=== PATIENT | female | born 1940 | race African-American/Black ===

== ENCOUNTER 2018-06-24 10:17 | Inpatient (IN) | payer MEDICARE, OTHER ==
[~2018-06-24] VITALS: Ht 162.6 cm; Wt 80.7 kg
[2018-06-24] VITALS (7 sets, daily range): BP systolic 141–175; BP diastolic 60–111
[~2018-06-24 10:17] MED LIST: ASPIRIN EC81 MG ORAL; ATORVASTATIN CA40 MG ORAL; HYDROCHLOROTHIA25 MG ORAL; LISINOPRIL10 MG ORAL; NORVASC10 MG ORAL; OMEPRAZOLE20 M2 ORAL; SIMVASTATIN40 MG ORAL
[2018-06-24] MEDS ORDERED: VITAMIN D250000 UNI1 ORAL (10:55)
[2018-06-24] MEDS ORDERED: CALCIUM CARBON200 M1 PO (10:55)
[2018-06-24] MEDS ORDERED: CRESTOR10 M1 ORAL (10:55)
[2018-06-24] MEDS ORDERED: BENZONATATE200 MG ORAL (10:55)
[2018-06-24] MEDS ORDERED: LOSARTAN POTAS100 MG ORAL (10:55)
[2018-06-24 11:17] LABS: BASOPHILS % (AUTO) 1.2 % (0.0-2.0); EOSINOPHILS % (AUTO) 0.5 % (0.0-3.0); HEMATOCRIT 34.2 % (37.0-47.0); HEMOGLOBIN 11.4 G/DL (12.0-16.0); MEAN CORPUSCULAR VOLUME 86 FL (80-99); MONOCYTES % (AUTO) 12.7 % (1.0-10.0); NEUTROPHILS % (AUTO) 69.5 % (45.0-75.0); PLATELET COUNT 243 K/UL (150-450); RED BLOOD COUNT 3.99 M/UL (4.20-5.40); RED CELL DISTRIBUTION WIDTH 12.1 % (11.6-14.8)
[2018-06-24 11:23] LABS: ANION GAP 8 mmol/L (5-15); BLOOD UREA NITROGEN 24 mg/dL (7-18); CALCIUM 8.1 MG/DL (8.5-10.1); CARBON DIOXIDE 24 MMOL/L (21-32); CHLORIDE 90 MMOL/L (98-107); CREATININE 1.2 MG/DL (0.55-1.30); INR 0.9 (0.9-1.1); SODIUM 122 MMOL/L (136-145)
[2018-06-24 11:27] LABS: ALANINE AMINOTRANSFERASE 26 U/L (12-78); ALBUMIN 3.4 G/DL (3.4-5.0); ALBUMIN/GLOBULIN RATIO 0.9 (1.0-2.7); ALKALINE PHOSPHATASE 94 U/L (46-116); ASPARTATE AMINO TRANSFERASE 25 U/L (15-37); BILIRUBIN,TOTAL 0.2 MG/DL (0.2-1.0)
--- NOTE | 2018-06-24 11:43 | Diagnostic Imaging Report ---
Indications: Dizziness, nausea, vomiting Technique: Spiral acquisitions obtained through the brain. Angled axial and coronal 5 x 5 mm slices were reconstructed. Total dose length product 1277.56 mGycm. CTDI vol(s) 70.38 mGy. Dose reduction achieved using automated exposure control Comparison: 12/10/2015 Findings: There is minimal age-related enlargement of the ventricles and extra axial CSF spaces. Minimal periventricular deep white matter low-attenuation is noted. No acute intracranial hemorrhage nor edema. No mass effect nor midline shift. Empty sella again noted. Normal platt-white differentiation. Intact calvarium. Visualized orbits and sinuses are unremarkable. The mastoids are clear. No significant interim change Impression: Mild age-related changes. Negative for acute intracranial bleed or mass effect The CT scanner at [facility] is accredited by the [employer] and the scans are performed using protocols designed to limit radiation exposure to as low as reasonably achievable to attain images of sufficient resolution adequate for diagnostic evaluation.
[2018-06-24 12:46] LABS: APPEARANCE,URINE CLEAR; BILIRUBIN, URINE NEGATIVE (NEGATIVE); COLOR,URINE PALE YELLOW; GLUCOSE, URINE (UA) NEGATIVE (NEGATIVE); KETONES,URINE NEGATIVE (NEGATIVE); LEUKOCYTE ESTERASE ,URINE NEGATIVE (NEGATIVE); NITRITE,URINE NEGATIVE (NEGATIVE); PH,URINE 6 (4.5-8.0); PROTEIN,URINE NEGATIVE (NEGATIVE); UROBILINOGEN,URINE NORMAL MG/DL (0.0-1.0)
--- NOTE | 2018-06-24 14:47 | Emergency Room Report ---
History of Present Illness General Chief Complaint: Dizziness Source: Patient, Medical Record Present Illness HPI The patient is brought in accompanied by her family. She reports recurrent nausea, vomiting and diarrhea that started this morning. She is been unable to tolerate anything orally. She states she also feels generalized weakness. She denies cough or congestion. She denies abdominal pain. She denies headache or neck pain. She denies trauma. She denies dysuria or hematuria. She has no other complaints. Allergies: Coded Allergies: PENICILLINS (Verified Allergy, Unknown, 06/24/18) Patient History Past Medical History: see triage record, HTN, other - HLP Social History: Denies: smoking, alcohol use, drug use Now: No Reviewed Nursing Documentation: PMH: Agreed; PSxH: Agreed Nursing Documentation-PMH Hx Cardiac Problems: Yes - high cholesterol,arthritis Hx Hypertension: Yes Hx Gastrointestinal Problems: No Hx Neurological Problems: No Review of Systems All Other Systems: negative except mentioned in HPI Physical Exam Vital Signs Date Time Temp Pulse Resp B/P (MAP) Pulse Ox O2 Delivery O2 Flow Rate FiO2 06/24/18 10:20 97.5 92 20 147/63 99 Room Air Sp02 EP Interpretation: reviewed, normal General Appearance: no apparent distress, alert, GCS 15, non-toxic Head: normocephalic, atraumatic Eyes: bilateral eye normal inspection, bilateral eye PERRL ENT: hearing grossly normal, normal pharynx, no angioedema, normal voice Neck: full range of motion, supple/symm/no masses Respiratory: chest non-tender, lungs clear, normal breath sounds, no respiratory distress, no retraction, no accessory muscle use, speaking full sentences Cardiovascular #1: regular rate, rhythm, no edema Gastrointestinal: normal bowel sounds, non tender, soft, non-distended, no guarding, no rebound Rectal: deferred Musculoskeletal: back normal, gait/station normal, normal range of motion, non- tender Neurologic: alert, oriented x3, responsive, motor strength/tone normal, sensory intact, speech normal Psychiatric: judgement/insight normal, memory normal, mood/affect normal, no suicidal/homicidal ideation Skin: normal color, no rash, warm/dry, well hydrated Medical Decision Making Diagnostic Impression: Primary Impression: Hyponatremia Additional Impressions: Dehydration Gastroenteritis Laboratory Tests Test 06/24/18 10:53 06/24/18 12:35 White Blood Count 7.0 K/UL (4.8-10.8) Red Blood Count 3.99 M/UL (4.20-5.40) L Hemoglobin 11.4 G/DL (12.0-16.0) L Hematocrit 34.2 % (37.0-47.0) L Mean Corpuscular Volume 86 FL (80-99) Mean Corpuscular Hemoglobin 28.6 PG (27.0-31.0) Mean Corpuscular Hemoglobin Concent 33.4 G/DL (32.0-36.0) Red Cell Distribution Width 12.1 % (11.6-14.8) Platelet Count 243 K/UL (150-450) Mean Platelet Volume 6.1 FL (6.5-10.1) L Neutrophils (%) (Auto) 69.5 % (45.0-75.0) Lymphocytes (%) (Auto) 16.0 % (20.0-45.0) L Monocytes (%) (Auto) 12.7 % (1.0-10.0) H Eosinophils (%) (Auto) 0.5 % (0.0-3.0) Basophils (%) (Auto) 1.2 % (0.0-2.0) Prothrombin Time 10.0 SEC (9.30-11.50) Prothrombin Time INR 0.9 (0.9-1.1) PTT 27 SEC (23-33) Sodium Level 122 MMOL/L (136-145) L Potassium Level 5.0 MMOL/L (3.5-5.1) Chloride Level 90 MMOL/L (98-107) L Carbon Dioxide Level 24 MMOL/L (21-32) Anion Gap 8 mmol/L (5-15) Blood Urea Nitrogen 24 mg/dL (7-18) H Creatinine 1.2 MG/DL (0.55-1.30) Estimate Glomerular Filtration Rate mL/min (>60) Glucose Level 122 MG/DL (74-106) H Calcium Level 8.1 MG/DL (8.5-10.1) L Total Bilirubin 0.2 MG/DL (0.2-1.0) Aspartate Amino Transferase (AST) 25 U/L (15-37) Alanine Aminotransferase (ALT) 26 U/L (12-78) Alkaline Phosphatase 94 U/L (46-116) Troponin I 0.002 ng/mL (0.000-0.056) Total Protein 7.3 G/DL (6.4-8.2) Albumin 3.4 G/DL (3.4-5.0) Globulin 3.9 g/dL Albumin/Globulin Ratio 0.9 (1.0-2.7) L Urine Color Pale yellow Urine Appearance Clear Urine pH 6 (4.5-8.0) Urine Specific [place] 1.015 (1.005-1.035) Urine Protein Negative (NEGATIVE) Urine Glucose (UA) Negative (NEGATIVE) Urine Ketones Negative (NEGATIVE) Urine Blood Negative (NEGATIVE) Urine Nitrite Negative (NEGATIVE) Urine Bilirubin Negative (NEGATIVE) Urine Urobilinogen Normal MG/DL (0.0-1.0) Urine Leukocyte Esterase Negative (NEGATIVE) EKG Diagnostic Results Rate: normal Rhythm: NSR ST Segments: no acute changes Rhythm Strip Diag. Results EP Interpretation: yes Rate: 80's Rhythm: NSR, no PVC's, no ectopy CT/MRI/US Diagnostic Results CT/MRI/US Diagnostic Results : Imaging Test Ordered: CT head Impression No acute findings. Specifically no intracranial bleed, mass effect or edema. See official report. Last Vital Signs Date Time Temp Pulse Resp B/P (MAP) Pulse Ox O2 Delivery O2 Flow Rate FiO2 06/24/18 13:09 166/62 06/24/18 12:38 87 28 100 Room Air 06/24/18 10:35 97.5 Disposition: ADMITTED INPATIENT Condition: Serious Referrals: José Miguel Benson MD (PCP) Breanna Morales DO Jun 24, 2018 14:47
--- NOTE | 2018-06-24 17:09 | History & Physical ---
History and Physical History & Physicial dictated # [id number] José Miguel Benson MD Jun 24, 2018 17:09
[2018-06-24] MEDS: HydrALAZINE 50mg tab ORAL SCH (18:30)
[2018-06-24] MEDS: Atorvastatin 20mg tab ORAL SCH (21:01)
[2018-06-24] MEDS: Heparin 5000 units/ml inj SUBQ SCH (21:03)
[2018-06-24] MEDS: Benzonatate 100mg Perles ORAL SCH (22:07)
[2018-06-25] VITALS: BP 164/76
--- NOTE | 2018-06-25 00:45 | History and Physical Report ---
DATE OF ADMISSION: 06/24/2018 HISTORY OF PRESENT ILLNESS: This is a 77-year-old female with history of hypertension, hyperlipidemia, hyponatremia secondary to hydrochlorothiazide, plus/minus SIADH, osteoarthritis of the knees, who presents to the emergency room with nausea, vomiting, and diarrhea that started this morning. The patient felt lightheaded like she was going to faint. She has generalized weakness. In the emergency room, she had blood work that revealed hyponatremia with a sodium of 122. The patient also appeared dehydrated. She is not on any diuretics. PAST MEDICAL HISTORY: Includes hypertension, hyperlipidemia, hyponatremia in the past secondary to hydrochlorothiazide, plus/minus SIADH, CKD stage 3, obesity, osteoarthritis of knees, and osteopenia. PAST SURGICAL HISTORY: None. SOCIAL HISTORY: The patient does not drink alcohol. The patient does not smoke. She lives by herself. No drugs. ALLERGIES: SUSANA inhibitors causing cough. FAMILY HISTORY: Noncontributory. MEDICATIONS: Reviewed in [employer]. REVIEW OF SYSTEMS: A 12-point review of systems is negative except for pertinent positives as mentioned above. PHYSICAL EXAMINATION: VITAL SIGNS: Temperature is 97.5, pulse is 84, respiratory rate 21, blood pressure 167/62, and O2 saturation is 100% on room air. GENERAL: No acute distress. The patient is alert, awake, and oriented x3. HEENT: Normocephalic/atraumatic. NECK: Supple. No JVD. LUNGS: Clear to auscultation bilaterally. No crackles, rhonchi, or rales. CARDIOVASCULAR: Regular rate and rhythm. Normal S1, S2. ABDOMEN: Soft, nontender, and nondistended. EXTREMITIES: No clubbing, cyanosis, or edema. LABORATORY AND DIAGNOSTIC DATA: CBC, hemoglobin of 11.4, white count of 7, and platelet count 243. BMP, sodium 122, potassium 5, chloride is 90, CO2 24, BUN is 24, creatinine 1.2, glucose 122, and calcium . LFTs are within normal limits. Head CT is negative for acute intracranial bleed or mass effect. ASSESSMENT: 1. Symptomatic hyponatremia. 2. Nausea, vomiting, and diarrhea, likely secondary to gastroenteritis. 3. Weakness, likely secondary to dehydration. 4. Hypertension. 5. CKD, stage 3. PLAN: 1. The patient to be admitted to med/surg. 2. IV fluids ordered. 3. Continue losartan, hydralazine 100 mg p.o. b.i.d., which are the patient's home medications for hypertension. 4. Renal consult for hyponatremia. 5. Start NS at 75 mL/hour. 6. Check serum osmolality; check urine sodium. 7. EKG shows normal sinus rhythm, no ST changes. 8. CT brain, no acute process. 9. Check stool studies. José Miguel Benson MD DR: DELBERT JOB#: [id number] CC:
[2018-06-25 04:00] VITALS: BP 151/82
[2018-06-25] MEDS: Benzonatate 100mg Perles ORAL SCH ×3 (05:39→22:24)
[2018-06-25 07:11] LABS: EOSINOPHILS % (AUTO) 0.7 % (0.0-3.0); HEMATOCRIT 30.9 % (37.0-47.0); HEMOGLOBIN 10.3 G/DL (12.0-16.0); LYMPHOCYTES % (AUTO) 28.8 % (20.0-45.0); MEAN CORPUSCULAR VOLUME 86 FL (80-99); NEUTROPHILS % (AUTO) 58.5 % (45.0-75.0); PLATELET COUNT 216 K/UL (150-450); RED BLOOD COUNT 3.58 M/UL (4.20-5.40); WHITE BLOOD COUNT 5.7 K/UL (4.8-10.8)
[2018-06-25 07:22] LABS: ANION GAP 4 mmol/L (5-15); BLOOD UREA NITROGEN 20 mg/dL (7-18); CALCIUM 8.4 MG/DL (8.5-10.1); CARBON DIOXIDE 27 MMOL/L (21-32); CHLORIDE 92 MMOL/L (98-107); POTASSIUM 5.2 MMOL/L (3.5-5.1); SODIUM 123 MMOL/L (136-145)
[2018-06-25 08:00] VITALS: BP 136/79
[2018-06-25] MEDS: Losartan 50mg tab ORAL SCH (09:04)
[2018-06-25] MEDS: HydrALAZINE 50mg tab ORAL SCH ×2 (09:05→20:32)
[2018-06-25] MEDS: Aspirin EC 81mg tab ORAL SCH (09:05)
[2018-06-25] MEDS: Heparin 5000 units/ml inj SUBQ SCH ×2 (09:07→20:34)
[2018-06-25 12:00] VITALS: BP 148/63
--- NOTE | 2018-06-25 15:39 | Consultation ---
Consult Note Assessment/Plan Renal consult dictated # [id number] Reynaldo Wang MD Jun 25, 2018 15:39
[2018-06-25 16:00] VITALS: BP 131/70
[2018-06-25] MEDS ORDERED: Sodium Polystyrene Sulfonate 15gm Powder ORAL SCH (19:00)
--- NOTE | 2018-06-25 19:26 | Internal Med Progress Note ---
Subjective Physician Name José Miguel Benson Attending Physician José Miguel Benson MD Current Medications Medications (Trade) Dose Ordered Sig/Amos Route PRN Reason Start Time Stop Time Status Last Admin Dose Admin Acetaminophen (Tylenol) 650 mg Q4H PRN ORAL Mild Pain (Pain Scale 1-3) 06/24/18 17:07 07/24/18 17:06 Amlodipine Besylate (Norvasc) 10 mg DAILY ORAL 06/25/18 09:00 07/25/18 08:59 06/25/18 09:05 Aspirin (Ecotrin) 81 mg DAILY ORAL 06/25/18 09:00 07/25/18 08:59 06/25/18 09:05 Atorvastatin Calcium (Lipitor) 40 mg BEDTIME ORAL 06/24/18 21:00 07/24/18 20:59 06/24/18 21:01 Benzonatate (Tessalon Perles) 200 mg Q8HR ORAL 06/24/18 22:00 07/24/18 21:59 06/25/18 13:40 Dextrose (Dextrose 50%) 25 ml Q30M PRN IV Hypoglycemia 06/24/18 17:08 07/24/18 17:07 Dextrose (Dextrose 50%) 50 ml Q30M PRN IV Hypoglycemia 06/24/18 17:08 07/24/18 17:07 Ergocalciferol (Drisdol) 50,000 intlu ONCE A WEEK ORAL 06/30/18 09:00 07/30/18 08:59 Heparin Sodium (Porcine) (Heparin 5000 units/ml) 5,000 units EVERY 12 HOURS SUBQ 06/24/18 21:00 07/24/18 20:59 06/25/18 09:07 Hydralazine HCl (Apresoline) 100 mg Q12HR ORAL 06/24/18 18:00 07/24/18 17:59 06/25/18 09:05 Losartan Potassium (Cozaar) 100 mg DAILY ORAL 06/25/18 09:00 07/25/18 08:59 06/25/18 09:04 Sodium Polystyrene Sulfonate (Kayexalate) 30 gm ONCE ORAL 06/25/18 19:00 06/25/18 21:00 Allergies: Coded Allergies: PENICILLINS (Verified Allergy, Unknown, 06/24/18) Subjective feels better Na 123 tolerating diet no CP or SOB son at bedside Objective Last Vital Signs Date Time Temp Pulse Resp B/P (MAP) Pulse Ox O2 Delivery O2 Flow Rate FiO2 06/25/18 16:00 97.8 86 16 131/70 (90) 99 06/25/18 09:00 Room Air Laboratory Tests Test 06/24/18 21:30 06/25/18 06:15 Urine Osmolality 372 mOsm/kg (429-449) L Urine Random Sodium 86 mmol/L (20-110) White Blood Count 5.7 K/UL (4.8-10.8) Red Blood Count 3.58 M/UL (4.20-5.40) L Hemoglobin 10.3 G/DL (12.0-16.0) L Hematocrit 30.9 % (37.0-47.0) L Mean Corpuscular Volume 86 FL (80-99) Mean Corpuscular Hemoglobin 28.8 PG (27.0-31.0) Mean Corpuscular Hemoglobin Concent 33.4 G/DL (32.0-36.0) Red Cell Distribution Width 12.0 % (11.6-14.8) Platelet Count 216 K/UL (150-450) Mean Platelet Volume 6.4 FL (6.5-10.1) L Neutrophils (%) (Auto) 58.5 % (45.0-75.0) Lymphocytes (%) (Auto) 28.8 % (20.0-45.0) Monocytes (%) (Auto) 11.0 % (1.0-10.0) H Eosinophils (%) (Auto) 0.7 % (0.0-3.0) Basophils (%) (Auto) 1.0 % (0.0-2.0) Sodium Level 123 MMOL/L (136-145) L Potassium Level 5.2 MMOL/L (3.5-5.1) H Chloride Level 92 MMOL/L (98-107) L Carbon Dioxide Level 27 MMOL/L (21-32) Anion Gap 4 mmol/L (5-15) L Blood Urea Nitrogen 20 mg/dL (7-18) H Creatinine 1.0 MG/DL (0.55-1.30) Estimat Glomerular Filtration Rate mL/min (>60) Glucose Level 97 MG/DL (74-106) Calcium Level 8.4 MG/DL (8.5-10.1) L Intake and Output 06/24/18 06/25/18 19:00 07:00 Intake Total 2277.5 ml 600 ml Balance 2277.5 ml 600 ml Intake Oral 240 ml IV Total 2037.5 ml 600 ml # Voids 2 # Bowel Movements 1 Objective GENERAL: No acute distress. The patient is alert, awake, and oriented x3. HEENT: Normocephalic/atraumatic. NECK: Supple. No JVD. LUNGS: Clear to auscultation bilaterally. No crackles, rhonchi, or rales. CARDIOVASCULAR: Regular rate and rhythm. Normal S1, S2. ABDOMEN: Soft, nontender, and nondistended. EXTREMITIES: No clubbing, cyanosis, or edema. Assessment/Plan Assessment/Plan ASSESSMENT: 1. Symptomatic hyponatremia. 2. Nausea, vomiting, and diarrhea, likely secondary to gastroenteritis. 3. Weakness, likely secondary to dehydration. 4. Hypertension. 5. CKD, stage 3. PLAN: 1. Medsurg 2. IVF 3. Continue losartan, hydralazine 100 mg p.o. b.i.d., which are the patient's home medications for hypertension. 4. Renal consult for hyponatremia. 5. stop IVF; Uosm > Sosm consistent with SIADH; Fluid restriction 800cc/day; if Na does not increase can start democycline 6. Check stool studies. 7. Imodium prn diarrhea 8. CT brain, no acute process. 9. DC planning in 1-3 days once Na is closer to 130 José Miguel Benson MD Jun 25, 2018 19:26
[2018-06-25 20:00] VITALS: BP 159/78
[2018-06-25] MEDS: Atorvastatin 20mg tab ORAL SCH (20:32)
--- NOTE | 2018-06-25 21:45 | Consultation ---
DATE OF CONSULTATION: 06/25/2018 NEPHROLOGY CONSULTATION CONSULTING PHYSICIAN: Reynaldo Wang M.D. REFERRING PHYSICIAN: José Miguel Benson M.D. REASON FOR CONSULTATION: Hyponatremia. HISTORY OF PRESENT ILLNESS: This is a 77-year-old -[place] female, apparently with a history of hyponatremia before. The patient was previously on hydrochlorothiazide and there was a possibility of SIADH based on the previous notes. The patient was admitted with serum sodium of 122 with a BUN of 24 and creatinine 1.2 yesterday. Today the BUN is 20, creatinine 1.0, and serum sodium is at 123. The patient originally was admitted for dizziness, which has improved. She was not taking any diuretics recently and she denies excessive thirst and fluid intake. PAST MEDICAL HISTORY: Includes history of hypertension, reported history of CKD, history of obesity, osteoarthritis of knees, and osteopenia. MEDICATIONS: Reviewed in the EMR. ALLERGIES: SUSANA inhibitors causing cough as a side effect, but no allergy per se. SOCIAL HISTORY: The patient lives at home. No history of smoking or alcohol abuse. REVIEW OF SYSTEMS: Noncontributory. PHYSICAL EXAMINATION: GENERAL: The patient is an elderly female, in no acute distress. VITAL SIGNS: Blood pressure 148/63, pulse 86, respiratory rate is 16, and temperature 98.4. HEENT: Pale conjunctivae. Anicteric sclerae. NECK: Supple. LUNGS: Clear to auscultation. HEART: S1 and S2 without murmurs or rubs. ABDOMEN: Soft and nontender. No masses. EXTREMITIES: No cyanosis or edema. LABORATORY FINDINGS: The chemistry panel shows a serum sodium 123, potassium 5.2, chloride 92, CO2 27, BUN 20, and creatinine 1. CBC shows a WBC of 5,700, hematocrit is 30.9, hemoglobin is 10.3, and platelets 216,000. Urine sodium is 86 and urine osmolality is 372. UA was negative. ASSESSMENT: This is a 77-year-old female, who was admitted with dizziness and weakness. She has significant hyponatremia. So far, the urine studies consistent with a syndrome of inappropriate ADH release. PLAN: 1. I will start the patient on free-water restriction at 800 ml per day. 2. Serum sodium will be closely followed closely. If water restriction alone does not improve hyponatremia, demeclocycline can be added if. 3. If the serum sodium drops further, I will also give the patient 3% saline. However, at this point, it does not appear the patient has symptomatic hyponatremia. 4. Case will be discussed with Dr. Benson. Thank you very much, Dr. Benson for this consultation. Reynaldo Wang M.D. DR: VITALIY JOB#: [id number] CC: BERNARDA
[2018-06-26] VITALS: BP 159/72
[2018-06-26 04:00] VITALS: BP 147/78
[2018-06-26] MEDS: Benzonatate 100mg Perles ORAL SCH ×3 (05:37→22:14)
[2018-06-26 08:00] VITALS: BP 137/75
[2018-06-26] MEDS: Aspirin EC 81mg tab ORAL SCH (08:28)
[2018-06-26] MEDS: HydrALAZINE 50mg tab ORAL SCH ×2 (08:28→20:26)
[2018-06-26] MEDS: Losartan 50mg tab ORAL SCH (08:29)
[2018-06-26] MEDS: Heparin 5000 units/ml inj SUBQ SCH ×2 (08:30→20:28)
[2018-06-26 08:42] LABS: ANION GAP 4 mmol/L (5-15); BLOOD UREA NITROGEN 22 mg/dL (7-18); CALCIUM 8.8 MG/DL (8.5-10.1); CARBON DIOXIDE 29 MMOL/L (21-32); CHLORIDE 91 MMOL/L (98-107); CREATININE 1.2 MG/DL (0.55-1.30); POTASSIUM 4.7 MMOL/L (3.5-5.1); SODIUM 124 MMOL/L (136-145)
[2018-06-26 12:00] VITALS: BP 146/116
[2018-06-26 16:00] VITALS: BP 138/74
[2018-06-26] MEDS ORDERED: Miralax 17gm pkt ORAL PRN (17:30)
[2018-06-26] MEDS ORDERED: Tums 500mg ORAL PRN (17:30)
--- NOTE | 2018-06-26 18:07 | Nephrology Progress Note ---
Assessment/Plan Problem List: (1) Hyponatremia Assessment: slightly better (2) SIADH (syndrome of inappropriate ADH production) (3) HTN (hypertension) Plan Start Demeclocycline free water restriction follow labs watch BP Discussed with RN fany and TUMS and Miralax added Subjective Subjective C/O stomach upset Objective Objective Last 24 Hour Vital Signs Date Time Temp Pulse Resp B/P (MAP) Pulse Ox O2 Delivery O2 Flow Rate FiO2 06/26/18 16:00 98.2 84 20 138/74 (95) 99 06/26/18 16:00 78 06/26/18 12:00 98.5 87 22 146/116 (126) 98 06/26/18 12:00 86 06/26/18 09:00 Room Air 06/26/18 08:29 137/75 06/26/18 08:28 137/75 06/26/18 08:28 88 137/75 06/26/18 08:00 78 06/26/18 08:00 97.7 88 20 137/75 (95) 98 06/26/18 04:06 80 06/26/18 04:00 98.2 97 18 147/78 (101) 98 06/26/18 00:00 98.2 85 18 159/72 (101) 96 06/25/18 23:49 79 06/25/18 21:00 Room Air 06/25/18 20:32 159/78 06/25/18 20:01 75 06/25/18 20:00 98.4 87 18 159/78 (105) 98 Intake and Output 06/25/18 06/26/18 19:00 07:00 Intake Total 996 ml 240 ml Balance 996 ml 240 ml Intake Oral 600 ml 240 ml IV Total 396 ml # Voids 3 2 # Bowel Movements 1 1 Laboratory Tests 06/26/18 06:40: Sodium Level 124L, Potassium Level 4.7, Chloride Level 91L, Carbon Dioxide Level 29, Anion Gap 4L, Blood Urea Nitrogen 22H, Creatinine 1.2, Estimat Glomerular Filtration Rate , Glucose Level 94, Calcium Level 8.8, Thyroid Stimulating Hormone (TSH) 1.855 Height (Feet): 5 Height (Inches): 4.00 Weight (Pounds): 181 Cardiovascular: normal rate Respiratory/Chest: lungs clear Extremities: other - no edema Reynaldo Wang MD Jun 26, 2018 18:07
[2018-06-26 20:00] VITALS: BP 129/68
[2018-06-26] MEDS: Atorvastatin 20mg tab ORAL SCH (20:26)
[2018-06-26] MEDS: Demeclocycline 150mg tab ORAL SCH (20:27)
[2018-06-27] VITALS: BP 160/70
[2018-06-27 04:00] VITALS: BP 115/63
[2018-06-27] MEDS: Benzonatate 100mg Perles ORAL SCH ×3 (05:50→21:41)
[2018-06-27 08:00] VITALS: BP 146/60
[2018-06-27 08:22] LABS: ANION GAP 7 mmol/L (5-15); BLOOD UREA NITROGEN 36 mg/dL (7-18); CALCIUM 8.8 MG/DL (8.5-10.1); CARBON DIOXIDE 28 MMOL/L (21-32); CHLORIDE 93 MMOL/L (98-107); CREATININE 1.4 MG/DL (0.55-1.30); POTASSIUM 4.1 MMOL/L (3.5-5.1); SODIUM 128 MMOL/L (136-145)
[2018-06-27] MEDS: Aspirin EC 81mg tab ORAL SCH (08:29)
[2018-06-27] MEDS: Losartan 50mg tab ORAL SCH (08:30)
[2018-06-27] MEDS: HydrALAZINE 50mg tab ORAL SCH ×2 (08:30→21:41)
[2018-06-27] MEDS: Demeclocycline 150mg tab ORAL SCH ×2 (08:31→17:06)
[2018-06-27] MEDS: Heparin 5000 units/ml inj SUBQ SCH ×2 (08:34→21:42)
--- NOTE | 2018-06-27 11:13 | Cardiology Report ---
APPROVED REPORT EKG Measurement Heart [id number] MA [id number] Normal sinus rhythm Septal infarct, age undetermined Abnormal ECG
[2018-06-27 12:00] VITALS: BP 124/56
--- NOTE | 2018-06-27 14:49 | Nephrology Progress Note ---
Assessment/Plan Problem List: (1) Hyponatremia Assessment: better (2) SIADH (syndrome of inappropriate ADH production) (3) HTN (hypertension) Plan cont Demeclocycline free water restriction follow labs watch BP Discussed with RN zamikeac and TUMS and Miralax added Subjective Subjective feels ok Objective Objective Last 24 Hour Vital Signs Date Time Temp Pulse Resp B/P (MAP) Pulse Ox O2 Delivery O2 Flow Rate FiO2 06/27/18 12:00 97.5 79 18 124/56 (78) 100 06/27/18 12:00 100 06/27/18 09:00 Room Air 06/27/18 08:30 146/60 06/27/18 08:30 146/60 06/27/18 08:29 82 146/60 06/27/18 08:00 85 06/27/18 08:00 98.1 82 19 146/60 (88) 98 06/27/18 04:00 98.5 82 18 115/63 (80) 98 06/27/18 03:53 77 06/27/18 00:00 97.6 95 18 160/70 (100) 98 06/26/18 23:51 108 06/26/18 21:00 Room Air 06/26/18 20:26 129/68 06/26/18 20:00 97.7 82 18 129/68 (88) 97 06/26/18 19:10 77 06/26/18 16:00 98.2 84 20 138/74 (95) 99 06/26/18 16:00 78 Intake and Output 06/26/18 06/27/18 18:59 06:59 Intake Total 200 ml Balance 200 ml Intake Oral 200 ml # Voids 2 # Bowel Movements 1 1 Laboratory Tests 06/27/18 06:47: Sodium Level 128L, Potassium Level 4.1, Chloride Level 93L, Carbon Dioxide Level 28, Anion Gap 7, Blood Urea Nitrogen 36H, Creatinine 1.4H, Estimat Glomerular Filtration Rate , Glucose Level 89, Calcium Level 8.8 Height (Feet): 5 Height (Inches): 4.00 Weight (Pounds): 181 Cardiovascular: normal rate Respiratory/Chest: lungs clear Extremities: other - no edema Reynaldo Wang MD Jun 27, 2018 14:49
[2018-06-27 16:00] VITALS: BP 130/56
[2018-06-27 20:00] VITALS: BP 119/59
[2018-06-27] MEDS: Atorvastatin 20mg tab ORAL SCH (21:40)
[2018-06-28] VITALS: BP 122/57
[2018-06-28 04:00] VITALS: BP 131/68
[2018-06-28] MEDS: Benzonatate 100mg Perles ORAL SCH ×3 (06:01→21:49)
[2018-06-28 08:00] VITALS: BP 116/53
[2018-06-28] MEDS: Demeclocycline 150mg tab ORAL SCH ×2 (08:25→17:21)
[2018-06-28] MEDS: Losartan 50mg tab ORAL SCH (08:25)
[2018-06-28] MEDS: Aspirin EC 81mg tab ORAL SCH (08:25)
[2018-06-28] MEDS: HydrALAZINE 50mg tab ORAL SCH ×2 (08:26→21:49)
[2018-06-28] MEDS: Heparin 5000 units/ml inj SUBQ SCH ×2 (08:26→21:50)
[2018-06-28 12:00] VITALS: BP 124/55
--- NOTE | 2018-06-28 14:45 | Nephrology Progress Note ---
Assessment/Plan Problem List: (1) Hyponatremia Assessment: No labs today (2) SIADH (syndrome of inappropriate ADH production) (3) HTN (hypertension) Assessment: Blood pressure is okay Plan cont Demeclocycline free water restriction follow labs watch BP Subjective Subjective feels ok Objective Objective Last 24 Hour Vital Signs Date Time Temp Pulse Resp B/P (MAP) Pulse Ox O2 Delivery O2 Flow Rate FiO2 06/28/18 12:00 71 06/28/18 12:00 99.3 83 16 124/55 (78) 99 06/28/18 09:00 Room Air 06/28/18 08:26 116/53 06/28/18 08:25 116/53 06/28/18 08:25 87 116/53 06/28/18 08:00 97.5 87 19 116/53 (74) 99 06/28/18 08:00 72 06/28/18 04:00 98.7 82 18 131/68 (89) 99 06/28/18 04:00 89 06/28/18 00:00 72 06/28/18 00:00 98.2 75 18 122/57 (78) 98 06/27/18 21:41 119/59 06/27/18 21:00 Room Air 06/27/18 20:00 98.7 85 18 119/59 (79) 99 06/27/18 20:00 82 06/27/18 16:00 74 06/27/18 16:00 97.7 83 18 130/56 (80) 96 Intake and Output 06/27/18 06/28/18 19:00 07:00 Intake Total 120 ml 480 ml Balance 120 ml 480 ml Intake Oral 120 ml 120 ml Other 360 ml # Voids 3 # Bowel Movements 1 1 Height (Feet): 5 Height (Inches): 4.00 Weight (Pounds): 181 Cardiovascular: normal rate Respiratory/Chest: lungs clear Extremities: other - no edema Reynaldo Wang MD Jun 28, 2018 14:45
[2018-06-28 16:00] VITALS: BP 135/54
--- NOTE | 2018-06-28 17:20 | Internal Med Progress Note ---
Subjective Physician Name José Miguel Benson Attending Physician José Miguel Benson MD Current Medications Medications (Trade) Dose Ordered Sig/Amos Route PRN Reason Start Time Stop Time Status Last Admin Dose Admin Acetaminophen (Tylenol) 650 mg Q4H PRN ORAL Mild Pain (Pain Scale 1-3) 06/24/18 17:07 07/24/18 17:06 Amlodipine Besylate (Norvasc) 10 mg DAILY ORAL 06/25/18 09:00 07/25/18 08:59 06/28/18 08:25 Aspirin (Ecotrin) 81 mg DAILY ORAL 06/25/18 09:00 07/25/18 08:59 06/28/18 08:25 Atorvastatin Calcium (Lipitor) 40 mg BEDTIME ORAL 06/24/18 21:00 07/24/18 20:59 06/27/18 21:40 Benzonatate (Tessalon Perles) 200 mg Q8HR ORAL 06/24/18 22:00 07/24/18 21:59 06/28/18 13:20 Calcium Carbonate (Tums) 500 mg Q6H PRN ORAL Abdominal cramps 06/26/18 17:30 07/26/18 17:29 06/26/18 17:51 Demeclocycline HCl (Declomycin) 300 mg BID ORAL 06/26/18 19:00 07/03/18 18:59 06/28/18 08:25 Dextrose (Dextrose 50%) 25 ml Q30M PRN IV Hypoglycemia 06/24/18 17:08 07/24/18 17:07 Dextrose (Dextrose 50%) 50 ml Q30M PRN IV Hypoglycemia 06/24/18 17:08 07/24/18 17:07 Ergocalciferol (Drisdol) 50,000 intlu ONCE A WEEK ORAL 06/30/18 09:00 07/30/18 08:59 Famotidine (Pepcid) 20 mg BID ORAL 06/26/18 18:00 07/26/18 17:59 06/28/18 08:24 Heparin Sodium (Porcine) (Heparin 5000 units/ml) 5,000 units EVERY 12 HOURS SUBQ 06/24/18 21:00 07/24/18 20:59 06/28/18 08:26 Hydralazine HCl (Apresoline) 100 mg Q12HR ORAL 06/24/18 18:00 07/24/18 17:59 06/27/18 21:41 Losartan Potassium (Cozaar) 100 mg DAILY ORAL 06/25/18 09:00 07/25/18 08:59 06/28/18 08:25 Polyethylene Glycol (Miralax) 17 gm Q12H PRN ORAL Constipation 06/26/18 17:30 07/26/18 17:29 06/27/18 17:09 Allergies: Coded Allergies: PENICILLINS (Verified Allergy, Unknown, 06/24/18) Subjective awaiting labs Cr increasing yesterday no complaints 12 pt ROS neg except above positives Objective Last Vital Signs Date Time Temp Pulse Resp B/P (MAP) Pulse Ox O2 Delivery O2 Flow Rate FiO2 06/28/18 16:00 84 06/28/18 16:00 98.7 16 135/54 (81) 96 06/28/18 09:00 Room Air Intake and Output 06/27/18 06/28/18 19:00 07:00 Intake Total 120 ml 480 ml Balance 120 ml 480 ml Intake Oral 120 ml 120 ml Other 360 ml # Voids 3 # Bowel Movements 1 1 Objective GENERAL: No acute distress. The patient is alert, awake, and oriented x3. HEENT: Normocephalic/atraumatic. NECK: Supple. No JVD. LUNGS: Clear to auscultation bilaterally. No crackles, rhonchi, or rales. CARDIOVASCULAR: Regular rate and rhythm. Normal S1, S2. ABDOMEN: Soft, nontender, and nondistended. EXTREMITIES: No clubbing, cyanosis, or edema. Assessment/Plan Assessment/Plan ASSESSMENT: 1. Symptomatic hyponatremia. 2. Nausea, vomiting, and diarrhea, likely secondary to gastroenteritis. 3. Weakness, likely secondary to dehydration. 4. Hypertension. 5. GUILLERMO on CKD, stage 3. PLAN: 1. Medsurg 2. Started on Democycline 3. Continue losartan, hydralazine 100 mg p.o. b.i.d., which are the patient's home medications for hypertension. 4. Renal consult for hyponatremia. 5. stop IVF; 6. CT brain, no acute process. 7. Imodium prn diarrhea 8. DC planning tomorrow AM if Cr decreases and Na improves José Miguel Benson MD Jun 28, 2018 17:20
[2018-06-28 18:47] LABS: ANION GAP 9 mmol/L (5-15); BLOOD UREA NITROGEN 59 mg/dL (7-18); CALCIUM 8.7 MG/DL (8.5-10.1); CARBON DIOXIDE 26 MMOL/L (21-32); CHLORIDE 98 MMOL/L (98-107); CREATININE 1.7 MG/DL (0.55-1.30); POTASSIUM 4.4 MMOL/L (3.5-5.1); SODIUM 133 MMOL/L (136-145)
[2018-06-28 20:00] VITALS: BP 137/64
[2018-06-28] MEDS: Atorvastatin 20mg tab ORAL SCH (21:49)
[2018-06-29] VITALS: BP 128/57
[2018-06-29 04:00] VITALS: BP 132/58
[2018-06-29 06:37] LABS: ANION GAP 5 mmol/L (5-15); BLOOD UREA NITROGEN 62 mg/dL (7-18); CALCIUM 8.9 MG/DL (8.5-10.1); CARBON DIOXIDE 27 MMOL/L (21-32); CHLORIDE 101 MMOL/L (98-107); CREATININE 1.7 MG/DL (0.55-1.30); POTASSIUM 5.1 MMOL/L (3.5-5.1); SODIUM 133 MMOL/L (136-145)
[2018-06-29] MEDS: HydrALAZINE 50mg tab ORAL SCH ×2 (08:34→21:04)
[2018-06-29] MEDS: Demeclocycline 150mg tab ORAL SCH ×2 (08:35→17:31)
[2018-06-29] MEDS: Aspirin EC 81mg tab ORAL SCH (08:35)
[2018-06-29] MEDS: Losartan 50mg tab ORAL SCH (08:36)
[2018-06-29] MEDS: Heparin 5000 units/ml inj SUBQ SCH ×2 (08:37→21:05)
[2018-06-29 08:52] VITALS: BP 139/60
[2018-06-29] MEDS: Benzonatate 100mg Perles ORAL SCH ×3 (09:33→21:04)
[2018-06-29 12:24] VITALS: BP 149/76
--- NOTE | 2018-06-29 12:44 | Internal Med Progress Note ---
Subjective Physician Name José Miguel Benson Attending Physician José Miguel Benson MD Current Medications Medications (Trade) Dose Ordered Sig/Amos Route PRN Reason Start Time Stop Time Status Last Admin Dose Admin Acetaminophen (Tylenol) 650 mg Q4H PRN ORAL Mild Pain (Pain Scale 1-3) 06/24/18 17:07 07/24/18 17:06 Amlodipine Besylate (Norvasc) 10 mg DAILY ORAL 06/25/18 09:00 07/25/18 08:59 06/29/18 08:36 Aspirin (Ecotrin) 81 mg DAILY ORAL 06/25/18 09:00 07/25/18 08:59 06/29/18 08:35 Atorvastatin Calcium (Lipitor) 40 mg BEDTIME ORAL 06/24/18 21:00 07/24/18 20:59 06/28/18 21:49 Benzonatate (Tessalon Perles) 200 mg Q8HR ORAL 06/24/18 22:00 07/24/18 21:59 06/29/18 09:33 Calcium Carbonate (Tums) 500 mg Q6H PRN ORAL Abdominal cramps 06/26/18 17:30 07/26/18 17:29 06/26/18 17:51 Demeclocycline HCl (Declomycin) 300 mg BID ORAL 06/26/18 19:00 07/03/18 18:59 06/29/18 08:35 Dextrose (Dextrose 50%) 25 ml Q30M PRN IV Hypoglycemia 06/24/18 17:08 07/24/18 17:07 Dextrose (Dextrose 50%) 50 ml Q30M PRN IV Hypoglycemia 06/24/18 17:08 07/24/18 17:07 Ergocalciferol (Drisdol) 50,000 intlu ONCE A WEEK ORAL 06/30/18 09:00 07/30/18 08:59 Famotidine (Pepcid) 20 mg BID ORAL 06/26/18 18:00 07/26/18 17:59 06/29/18 08:35 Heparin Sodium (Porcine) (Heparin 5000 units/ml) 5,000 units EVERY 12 HOURS SUBQ 06/24/18 21:00 07/24/18 20:59 06/29/18 08:37 Hydralazine HCl (Apresoline) 100 mg Q12HR ORAL 06/24/18 18:00 07/24/18 17:59 06/29/18 08:34 Losartan Potassium (Cozaar) 100 mg DAILY ORAL 06/25/18 09:00 07/25/18 08:59 06/29/18 08:36 Polyethylene Glycol (Miralax) 17 gm Q12H PRN ORAL Constipation 06/26/18 17:30 07/26/18 17:29 06/27/18 17:09 Sodium Chloride 1,000 ml @ 75 mls/hr [id number] IV 06/29/18 12:45 07/29/18 12:44 UNV Allergies: Coded Allergies: PENICILLINS (Verified Allergy, Unknown, 06/24/18) Subjective Cr increased to 1.7 12 pt ROS neg except above positives Objective Last Vital Signs Date Time Temp Pulse Resp B/P (MAP) Pulse Ox O2 Delivery O2 Flow Rate FiO2 06/29/18 12:25 77 06/29/18 12:24 98.2 20 149/76 (100) 99 06/29/18 09:04 Room Air Laboratory Tests Test 06/28/18 17:46 06/29/18 05:40 Sodium Level 133 MMOL/L (136-145) L 133 MMOL/L (136-145) L Potassium Level 4.4 MMOL/L (3.5-5.1) 5.1 MMOL/L (3.5-5.1) Chloride Level 98 MMOL/L (98-107) 101 MMOL/L (98-107) Carbon Dioxide Level 26 MMOL/L (21-32) 27 MMOL/L (21-32) Anion Gap 9 mmol/L (5-15) 5 mmol/L (5-15) Blood Urea Nitrogen 59 mg/dL (7-18) H 62 mg/dL (7-18) H Creatinine 1.7 MG/DL (0.55-1.30) H 1.7 MG/DL (0.55-1.30) H Estimat Glomerular Filtration Rate mL/min (>60) mL/min (>60) Glucose Level 124 MG/DL (74-106) H 95 MG/DL (74-106) Calcium Level 8.7 MG/DL (8.5-10.1) 8.9 MG/DL (8.5-10.1) Intake and Output 06/28/18 06/29/18 19:00 07:00 Intake Total 360 ml 240 ml Balance 360 ml 240 ml Intake Oral 360 ml 240 ml # Voids 2 2 Objective GENERAL: No acute distress. The patient is alert, awake, and oriented x3. HEENT: Normocephalic/atraumatic. NECK: Supple. No JVD. LUNGS: Clear to auscultation bilaterally. No crackles, rhonchi, or rales. CARDIOVASCULAR: Regular rate and rhythm. Normal S1, S2. ABDOMEN: Soft, nontender, and nondistended. EXTREMITIES: No clubbing, cyanosis, or edema. Assessment/Plan Assessment/Plan ASSESSMENT: 1. Symptomatic hyponatremia. 2. Nausea, vomiting, and diarrhea, likely secondary to gastroenteritis. 3. Weakness, likely secondary to dehydration. 4. Hypertension. 5. GUILLERMO on CKD, stage 3. PLAN: 1. Medsurg 2. Started on Democycline ; water restriction changed to 1L/dy; check bladder scan, renal US, Urine Na 3. Continue losartan, hydralazine 100 mg p.o. b.i.d. 4. Renal consult for hyponatremia. 5. start NS @ 75cc/hr 6. CT brain, no acute process. 7. Imodium prn diarrhea 8. DC planning - held José Miguel Benson MD Jun 29, 2018 12:44
[2018-06-29 16:00] VITALS: BP 130/68
--- NOTE | 2018-06-29 16:03 | Nephrology Progress Note ---
Assessment/Plan Problem List: (1) Hyponatremia Assessment: better (2) SIADH (syndrome of inappropriate ADH production) (3) HTN (hypertension) Assessment: Blood pressure is okay (4) ARF (acute renal failure) Assessment: worse/ ATN ? ? Prerenal ? doubt/ Obstruction ? Plan cont Demeclocycline free water restriction IV NS follow labs Renal US Discussed with Dr Benson Subjective Subjective feels ok Objective Objective Last 24 Hour Vital Signs Date Time Temp Pulse Resp B/P (MAP) Pulse Ox O2 Delivery O2 Flow Rate FiO2 06/29/18 12:25 77 06/29/18 12:24 98.2 85 20 149/76 (100) 99 06/29/18 09:04 Room Air 06/29/18 08:52 97.2 81 20 139/60 (86) 99 06/29/18 08:36 139/68 06/29/18 08:36 81 139/68 06/29/18 08:34 139/68 06/29/18 08:32 72 06/29/18 04:00 83 06/29/18 04:00 99.0 92 19 132/58 (82) 99 06/29/18 00:00 98.5 93 19 128/57 (80) 99 06/29/18 00:00 80 06/28/18 21:49 137/64 06/28/18 21:00 Room Air 06/28/18 20:00 98.8 84 19 137/64 (88) 99 06/28/18 20:00 81 06/28/18 16:00 84 06/28/18 16:00 98.7 96 16 135/54 (81) 96 Intake and Output 06/28/18 06/29/18 19:00 07:00 Intake Total 360 ml 240 ml Balance 360 ml 240 ml Intake Oral 360 ml 240 ml # Voids 2 2 Laboratory Tests 06/28/18 17:46: Sodium Level 133L, Potassium Level 4.4, Chloride Level 98, Carbon Dioxide Level 26, Anion Gap 9, Blood Urea Nitrogen 59H, Creatinine 1.7H, Estimat Glomerular Filtration Rate , Glucose Level 124H, Calcium Level 8.7 06/29/18 05:40: Sodium Level 133L, Potassium Level 5.1, Chloride Level 101, Carbon Dioxide Level 27, Anion Gap 5, Blood Urea Nitrogen 62H, Creatinine 1.7H, Estimat Glomerular Filtration Rate , Glucose Level 95, Calcium Level 8.9 Height (Feet): 5 Height (Inches): 4.00 Weight (Pounds): 181 Cardiovascular: normal rate Respiratory/Chest: lungs clear Extremities: other - no edema Reynaldo Wang MD Jun 29, 2018 16:03
[2018-06-29] MEDS ORDERED: Tums 500mg ORAL PRN (18:30)
[2018-06-29] MEDS ORDERED: Miralax 17gm pkt ORAL PRN (18:30)
[2018-06-29 20:14] VITALS: BP 136/52
[2018-06-29] MEDS: Atorvastatin 20mg tab ORAL SCH (21:04)
[2018-06-30] VITALS: BP 129/56
[2018-06-30 04:00] VITALS: BP 127/55
[2018-06-30] MEDS: Benzonatate 100mg Perles ORAL SCH ×3 (05:53→20:50)
[2018-06-30 07:06] LABS: ANION GAP 8 mmol/L (5-15); BLOOD UREA NITROGEN 59 mg/dL (7-18); CALCIUM 8.5 MG/DL (8.5-10.1); CARBON DIOXIDE 26 MMOL/L (21-32); CHLORIDE 106 MMOL/L (98-107); CREATININE 1.5 MG/DL (0.55-1.30); POTASSIUM 5.2 MMOL/L (3.5-5.1); SODIUM 140 MMOL/L (136-145)
[2018-06-30 08:00] VITALS: BP 130/58
[2018-06-30] MEDS: Losartan 50mg tab ORAL SCH (08:36)
[2018-06-30] MEDS: Aspirin EC 81mg tab ORAL SCH (08:36)
[2018-06-30] MEDS: HydrALAZINE 50mg tab ORAL SCH ×2 (08:38→20:51)
[2018-06-30] MEDS: Heparin 5000 units/ml inj SUBQ SCH ×2 (08:39→20:52)
[2018-06-30] MEDS ORDERED: Demeclocycline 150mg tab ORAL SCH (09:00)
[2018-06-30] MEDS ORDERED: Vitamin D 50,000 units cap ORAL SCH ×2 (09:00)
--- NOTE | 2018-06-30 10:36 | Diagnostic Imaging Report ---
Indication:Elevated Bun and Creatinine. Technique: Grayscale and duplex Doppler imaging of the kidneys performed. Comparison: None Findings: Exam was limited by body habitus. The kidneys are poorly imaged. There are multiple cysts of varying size bilaterally. There is no obvious hydronephrosis demonstrated. The right kidney is 11.7 cm and left kidney 12.5 cm as measured. The largest cyst in the left kidney is between 5 and 6 cm. Bladder is grossly unremarkable. IMPRESSION: Limited evaluation as discussed above with poor visualization of the kidneys. No evidence of obstruction. Multiple bilateral renal cysts.
[2018-06-30 12:00] VITALS: BP 116/56
[2018-06-30 16:00] VITALS: BP 154/70
--- NOTE | 2018-06-30 16:05 | Nephrology Progress Note ---
Assessment/Plan Problem List: (1) Hyponatremia Assessment: better (2) SIADH (syndrome of inappropriate ADH production) (3) HTN (hypertension) Assessment: Blood pressure is okay (4) ARF (acute renal failure) Assessment: better Plan DC Demeclocycline free water restriction follow labs OK to DC Subjective Subjective feels ok Objective Objective Last 24 Hour Vital Signs Date Time Temp Pulse Resp B/P (MAP) Pulse Ox O2 Delivery O2 Flow Rate FiO2 06/30/18 12:00 98.1 78 18 116/56 (76) 99 06/30/18 09:00 Room Air 06/30/18 08:38 130/58 06/30/18 08:37 92 130/58 06/30/18 08:36 130/58 06/30/18 08:00 98.7 92 19 130/58 (82) 99 06/30/18 04:00 98.5 92 20 127/55 (79) 98 06/30/18 00:00 98.3 96 18 129/56 (80) 98 06/29/18 21:04 136/52 06/29/18 20:14 98.0 89 18 136/52 (80) 98 06/29/18 19:59 Room Air Intake and Output 06/29/18 06/30/18 19:00 07:00 Intake Total 300 ml 900 ml Output Total 3 ml Balance 300 ml 897 ml Intake Oral 300 ml IV Total 900 ml Output Urine Total 3 ml # Voids 1 Laboratory Tests 06/29/18 18:00: Urine Eosinophils None seen, Urine Random Sodium 47 06/30/18 05:10: Sodium Level 140, Potassium Level 5.2H, Chloride Level 106, Carbon Dioxide Level 26, Anion Gap 8, Blood Urea Nitrogen 59H, Creatinine 1.5H, Estimat Glomerular Filtration Rate , Glucose Level 87, Calcium Level 8.5 Height (Feet): 5 Height (Inches): 4.00 Weight (Pounds): 178 Cardiovascular: normal rate Respiratory/Chest: lungs clear Reynaldo Wang MD Jun 30, 2018 16:05
[2018-06-30 19:59] VITALS: BP 147/73
[2018-06-30] MEDS: Atorvastatin 20mg tab ORAL SCH (20:50)
--- NOTE | 2018-06-30 23:56 | Internal Med Progress Note ---
Subjective Physician Name José Miguel Benson Attending Physician José Miguel Benson MD Current Medications Medications (Trade) Dose Ordered Sig/Amos Route PRN Reason Start Time Stop Time Status Last Admin Dose Admin Acetaminophen (Tylenol) 650 mg Q4H PRN ORAL Mild Pain (Pain Scale 1-3) 06/29/18 18:30 07/24/18 18:29 Amlodipine Besylate (Norvasc) 10 mg DAILY ORAL 06/30/18 09:00 07/25/18 08:59 Aspirin (Ecotrin) 81 mg DAILY ORAL 06/30/18 09:00 07/25/18 08:59 06/30/18 08:36 Atorvastatin Calcium (Lipitor) 40 mg BEDTIME ORAL 06/29/18 21:00 07/24/18 20:59 06/30/18 20:50 Benzonatate (Tessalon Perles) 200 mg Q8HR ORAL 06/29/18 22:00 07/24/18 21:59 06/30/18 20:50 Calcium Carbonate (Tums) 500 mg Q6H PRN ORAL Abdominal cramps 06/29/18 18:30 07/26/18 18:29 Dextrose (Dextrose 50%) 25 ml Q30M PRN IV Hypoglycemia 06/29/18 18:45 07/24/18 17:07 Dextrose (Dextrose 50%) 50 ml Q30M PRN IV Hypoglycemia 06/29/18 18:45 07/24/18 17:07 Ergocalciferol (Drisdol) 50,000 intlu ONCE A WEEK ORAL 06/30/18 09:00 07/30/18 08:59 06/30/18 09:01 Famotidine (Pepcid) 20 mg BID ORAL 06/30/18 09:00 07/26/18 17:59 06/30/18 17:07 Heparin Sodium (Porcine) (Heparin 5000 units/ml) 5,000 units EVERY 12 HOURS SUBQ 06/29/18 21:00 07/24/18 20:59 06/30/18 20:52 Hydralazine HCl (Apresoline) 100 mg Q12HR ORAL 06/29/18 21:00 07/24/18 17:59 06/30/18 20:51 Losartan Potassium (Cozaar) 100 mg DAILY ORAL 06/30/18 09:00 07/25/18 08:59 06/30/18 08:36 Polyethylene Glycol (Miralax) 17 gm Q12H PRN ORAL Constipation 06/29/18 18:30 07/29/18 18:29 06/30/18 17:08 Sodium Chloride 1,000 ml @ 75 mls/hr [id number] IV 06/29/18 18:30 07/29/18 12:59 06/30/18 20:52 Allergies: Coded Allergies: PENICILLINS (Verified Allergy, Unknown, 06/24/18) Subjective Cr decreasing to 1.5 no complaints 12 pt ROS neg except above positives Objective Last Vital Signs Date Time Temp Pulse Resp B/P (MAP) Pulse Ox O2 Delivery O2 Flow Rate FiO2 06/30/18 20:51 147/73 06/30/18 20:03 Room Air 06/30/18 19:59 98.1 84 18 96 Laboratory Tests Test 06/30/18 05:10 Sodium Level 140 MMOL/L (136-145) Potassium Level 5.2 MMOL/L (3.5-5.1) H Chloride Level 106 MMOL/L (98-107) Carbon Dioxide Level 26 MMOL/L (21-32) Anion Gap 8 mmol/L (5-15) Blood Urea Nitrogen 59 mg/dL (7-18) H Creatinine 1.5 MG/DL (0.55-1.30) H Estimat Glomerular Filtration Rate mL/min (>60) Glucose Level 87 MG/DL (74-106) Calcium Level 8.5 MG/DL (8.5-10.1) Intake and Output 06/29/18 06/30/18 18:59 06:59 Intake Total 300 ml 825 ml Output Total 3 ml Balance 300 ml 822 ml Intake Oral 300 ml IV Total 825 ml Output Urine Total 3 ml # Voids 1 Objective GENERAL: No acute distress. The patient is alert, awake, and oriented x3. HEENT: Normocephalic/atraumatic. NECK: Supple. No JVD. LUNGS: Clear to auscultation bilaterally. No crackles, rhonchi, or rales. CARDIOVASCULAR: Regular rate and rhythm. Normal S1, S2. ABDOMEN: Soft, nontender, and nondistended. EXTREMITIES: No clubbing, cyanosis, or edema. Assessment/Plan Assessment/Plan ASSESSMENT: 1. Symptomatic hyponatremia. 2. Nausea, vomiting, and diarrhea, likely secondary to gastroenteritis. 3. Weakness, likely secondary to dehydration. 4. Hypertension. 5. GUILLERMO on CKD, stage 3. PLAN: 1. Medsurg 2. Hold Democycline ; water restriction changed to 1L/dy 3. Continue losartan, hydralazine 100 mg p.o. b.i.d. 4. Renal consult for hyponatremia. 5. DC home tomorrow 6. CT brain, no acute process. 7. Imodium prn diarrhea José Miguel Benson MD Jun 30, 2018 23:56
[2018-07-01] VITALS: BP 128/62
[2018-07-01 04:05] VITALS: BP 145/79
[2018-07-01] MEDS: Benzonatate 100mg Perles ORAL SCH (06:05)
[2018-07-01 08:00] VITALS: BP 149/71
[2018-07-01 09:27] LABS: ANION GAP 5 mmol/L (5-15); BLOOD UREA NITROGEN 49 mg/dL (7-18); CALCIUM 9.1 MG/DL (8.5-10.1); CARBON DIOXIDE 27 MMOL/L (21-32); CHLORIDE 105 MMOL/L (98-107); CREATININE 1.2 MG/DL (0.55-1.30); SODIUM 137 MMOL/L (136-145)
[2018-07-01] MEDS: Aspirin EC 81mg tab ORAL SCH (09:44)
[2018-07-01] MEDS: Losartan 50mg tab ORAL SCH (09:44)
[2018-07-01] MEDS: HydrALAZINE 50mg tab ORAL SCH (09:44)
[2018-07-01] MEDS: Heparin 5000 units/ml inj SUBQ SCH (09:47)
--- NOTE | 2018-07-01 10:09 | Discharge Summary ---
Discharge Summary Hospital Course Date of Admission Jun 24, 2018 at 13:53 Date of Discharge Admitting Diagnosis hyponatremia, gasteroenteritis, dehydration HPI Leeanna Sanchez is a 77 year old female who was admitted on Jun 24, 2018 at 13:53 for Hyponatremia,Gasteroentritis,Dehydration Her Hyponatremia was treated with fluid restriction and Democycline. She developed GUILLERMO which was corrected after IV fluids. Diarrhea had resolved. She was discharged home with followup. Discharge Condition Upon Discharge: stable Discharge Disposition Patient was discharged to HOME José Miguel Benson MD Jul 01, 2018 10:09
[2018-07-01 12:00] VITALS: BP 131/65
--- NOTE | 2018-07-01 12:34 | Nephrology Progress Note ---
Assessment/Plan Problem List: (1) Hyponatremia Assessment: better (2) SIADH (syndrome of inappropriate ADH production) (3) HTN (hypertension) Assessment: Blood pressure is okay (4) ARF (acute renal failure) Assessment: better Plan free water restriction follow labs OK to DC Subjective Subjective feels ok Objective Objective Last 24 Hour Vital Signs Date Time Temp Pulse Resp B/P (MAP) Pulse Ox O2 Delivery O2 Flow Rate FiO2 07/01/18 09:44 149/71 07/01/18 09:44 149/71 07/01/18 09:44 88 149/71 07/01/18 09:00 Room Air 07/01/18 08:00 98.9 88 16 149/71 (97) 98 07/01/18 04:05 98.9 54 17 145/79 (101) 97 07/01/18 00:00 98.9 87 16 128/62 (84) 96 06/30/18 20:51 147/73 06/30/18 20:03 Room Air 06/30/18 19:59 98.1 84 18 147/73 (97) 96 06/30/18 16:00 98.2 88 18 154/70 (98) 98 Intake and Output 06/30/18 07/01/18 19:00 07:00 Intake Total 2325 ml 900 ml Balance 2325 ml 900 ml IV Total 825 ml 900 ml Other 1500 ml # Voids 5 Laboratory Tests 07/01/18 07:35: Sodium Level 137, Potassium Level 5.0, Chloride Level 105, Carbon Dioxide Level 27, Anion Gap 5, Blood Urea Nitrogen 49H, Creatinine 1.2, Estimat Glomerular Filtration Rate , Glucose Level 84, Calcium Level 9.1 Height (Feet): 5 Height (Inches): 4.00 Weight (Pounds): 178 Cardiovascular: normal rate Respiratory/Chest: lungs clear Extremities: other - no edema Reynaldo Wang MD Jul 01, 2018 12:34
== END 2018-07-01 12:40 | disposition home or self-care (01) | DRG 644 ==
LOC: EMR 10:50 → EDBEDREQ 13:40 → 2E 13:53 → EDBEDREQ 14:00 → 2E 15:54 → 4E 06-29 18:49
DX: E22.2 Syndrome of inappropriate secretion of antidiuretic hormone (principal); N17.9 Acute kidney failure, unspecified; K52.9 Noninfective gastroenteritis and colitis, unspecified; E86.0 Dehydration; I12.9 Hypertensive chronic kidney disease with stage 1 through stage 4 chronic kidney disease, or unspecified chronic kidney disease; N18.3 Chronic kidney disease, stage 3 (moderate); E78.5 Hyperlipidemia, unspecified; Z88.0 Allergy status to penicillin; M17.0 Bilateral primary osteoarthritis of knee
CPT/HCPCS: 36415; 70450; 76770; 80048; 80053; 81003; 82962; 83930; 83935; 84300; 84443; 84484; 85025; 85610; 85730; 89050; 93005; 96360; 96361; 99285

== ENCOUNTER 2018-08-26 00:03 | Emergency (ER) | payer MEDICAID, MEDICARE, OTHER ==
[~2018-08-26] VITALS: Ht 160 cm; Wt 72.6 kg
[~2018-08-26 00:03] MED LIST changes: +BENZONATATE200 MG ORAL; +CALCIUM CARBON200 M1 PO; +CRESTOR10 M1 ORAL; +LOSARTAN POTAS100 MG ORAL; +VITAMIN D250000 UNI1 ORAL
--- NOTE | 2018-08-26 00:15 | NUR ---
ED Nurse Note: Patient walked into ED c/o congestion for the past 3 days. patients blood pressure at time of triage 208/92. ERMD seen Pt at bedside.
--- NOTE | 2018-08-26 00:20 | Emergency Room Report ---
History of Present Illness General Chief Complaint: General Complaint Source: Patient Present Illness HPI Is a 77-year-old female with history of high blood pressure. She presents with chief complaint of congestion. onset for about a week. Worsen tonight. She went to the [facility] and when she came back she started feeling sick. No fever chills but no nausea no vomiting. coughing is nonproductive in nature. No chest pain. No abdominal pain. No nausea vomiting or diarrhea. She saw last week and was prescribed cough medicine, Flonase and azithromycin. She said the cough medicine make her dizzy and nauseous. Finished antibiotics today. Allergies: Coded Allergies: PENICILLINS (Verified Allergy, Unknown, 06/24/18) Patient History Past Medical History: see triage record, old chart reviewed, HTN Past Surgical History: other Pertinent Family History: none Social History: Denies: smoking Last Menstrual Period: n/a Now: No Immunizations: other Reviewed Nursing Documentation: PMH: Agreed; PSxH: Agreed Nursing Documentation-PMH Past Medical History: No History, Except For Hx Cardiac Problems: Yes - high cholesterol,arthritis Hx Hypertension: Yes Hx Cancer: No Hx Gastrointestinal Problems: No Hx Neurological Problems: No Review of Systems Eye: Reports: nose congestion; Denies: eye pain, blurred vision ENT: Reports: nose congestion; Denies: ear pain, throat swelling Respiratory: Denies: cough, shortness of breath Cardiovascular: Denies: chest pain, palpitations Gastrointestinal: Denies: abdominal pain, diarrhea, nausea, vomiting Musculoskeletal: Denies: back pain, joint pain Skin: Denies: rash Neurological: Denies: headache, numbness Endocrine: Denies: increased thirst, increased urine Hematologic/Lymphatic: Denies: easy bruising All Other Systems: negative except mentioned in HPI Physical Exam Vital Signs Date Time Temp Pulse Resp B/P (MAP) Pulse Ox O2 Delivery O2 Flow Rate FiO2 08/26/18 00:07 97.2 98 18 208/92 97 Room Air vitals with high blood pressure Sp02 EP Interpretation: reviewed, normal General Appearance: well appearing, no apparent distress, alert Head: normocephalic, atraumatic Eyes: bilateral eye PERRL, bilateral eye EOMI ENT: hearing grossly normal, normal pharynx Neck: full range of motion, supple, no meningismus Respiratory: chest non-tender, lungs clear, normal breath sounds Cardiovascular #1: regular rate, rhythm, no murmur Gastrointestinal: normal bowel sounds, non tender, no mass, no organomegaly, no bruit, non-distended Musculoskeletal: back normal, gait/station normal, normal range of motion Psychiatric: mood/affect normal Skin: warm/dry Medical Decision Making Diagnostic Impression: Primary Impression: Viral URI Additional Impressions: Hyponatremia HTN (hypertension) Qualified Codes: I10 - Essential (primary) hypertension ER Course pt presents with a viral illness. No evidence of pneumonia, ACS, PE, dissection to name a few. Blood pressure improved. We'll discharge home. Hyponatremia is chronic. Last Vital Signs Date Time Temp Pulse Resp B/P (MAP) Pulse Ox O2 Delivery O2 Flow Rate FiO2 08/26/18 00:07 97.2 98 18 208/92 97 Room Air Status: improved Disposition: HOME, SELF-CARE Condition: Stable Additional Instructions: Follow-up with your doctor in 7 days. Take your blood pressure medication. Return if symptom worsen. Kj Acevedo MD Aug 26, 2018 00:20
--- NOTE | 2018-08-26 00:25 | NUR ---
ED Nurse Note: Blood sample sent to lab.
[2018-08-26 00:33] LABS: BASOPHILS % (AUTO) 1.2 % (0.0-2.0); EOSINOPHILS % (AUTO) 0.9 % (0.0-3.0); HEMATOCRIT 34.6 % (37.0-47.0); HEMOGLOBIN 11.3 G/DL (12.0-16.0); LYMPHOCYTES % (AUTO) 32.1 % (20.0-45.0); MEAN CORPUSCULAR VOLUME 85 FL (80-99); NEUTROPHILS % (AUTO) 53.7 % (45.0-75.0); PLATELET COUNT 275 K/UL (150-450); RED BLOOD COUNT 4.08 M/UL (4.20-5.40); RED CELL DISTRIBUTION WIDTH 11.9 % (11.6-14.8)
[2018-08-26 00:34] VITALS: BP 186/75
[2018-08-26 00:45] LABS: ANION GAP 9 mmol/L (5-15); BLOOD UREA NITROGEN 17 mg/dL (7-18); CARBON DIOXIDE 26 MMOL/L (21-32); CHLORIDE 91 MMOL/L (98-107); CREATININE 1.1 MG/DL (0.55-1.30); POTASSIUM 4.6 MMOL/L (3.5-5.1); SODIUM 126 MMOL/L (136-145)
--- NOTE | 2018-08-26 01:32 | NUR ---
ED Nurse Note: Urinr sample sent to lab.
[2018-08-26 01:37] LABS: APPEARANCE,URINE CLEAR; BILIRUBIN, URINE NEGATIVE (NEGATIVE); COLOR,URINE PALE YELLOW; GLUCOSE, URINE (UA) NEGATIVE (NEGATIVE); KETONES,URINE NEGATIVE (NEGATIVE); LEUKOCYTE ESTERASE ,URINE 1+ (NEGATIVE); NITRITE,URINE NEGATIVE (NEGATIVE); PH,URINE 7 (4.5-8.0); PROTEIN,URINE NEGATIVE (NEGATIVE); UROBILINOGEN,URINE NORMAL MG/DL (0.0-1.0)
[2018-08-26 02:30] VITALS: BP 169/69
--- NOTE | 2018-08-26 02:30 | NUR ---
ER DISCHARGE NOTE: Patient is cleared to be discharged per ERMD, pt is aox4, on room air, with stable vital signs. pt was given dc and prescription instructions, pt was able to verbalize understanding, pt id band and iv site removed without complications. pt is able to ambulate with steady gait with son. pt took all belongings.
[2018-08-26 02:35] VITALS: BP 169/69
== END 2018-08-26 02:35 | disposition home or self-care (01) ==
LOC: EMR 00:24
DX: J06.9 Acute upper respiratory infection, unspecified (principal); E87.1 Hypo-osmolality and hyponatremia; I10 Essential (primary) hypertension
CPT/HCPCS: 36415; 80048; 81001; 85025; 96361; 96374; 99284; J0360

== ENCOUNTER 2018-08-31 14:31 | Inpatient (IN) | payer MEDICARE ==
[~2018-08-31] VITALS: Ht 162.6 cm; Wt 83.5 kg
--- NOTE | 2018-08-31 14:35 | NUR ---
ED Nurse Note: Patient biba RA 94 c/o near syncope. patient states that she felt a moment of weakness and called 911. at time of arrival patient's sugar was 136. Dr. Sow notified and aware. patient is alert and oriented x4, patient was just here 3 days ago. EKG shows sinus tachycardia. patient denies any pain. IV site started on right AC.
[2018-08-31 14:40] VITALS: BP 173/93
--- NOTE | 2018-08-31 14:58 | Emergency Room Report ---
History of Present Illness General Chief Complaint: Generalized Weakness Source: Patient Present Illness HPI Patient is a 77-year-old female brought in by EMS after increased generalized weakness and near syncope. Patient had prior history of hyponatremia and states that she had similar symptoms in the past when her sodium went to low. Denies any chest or abdominal pain. She denies feeling dizzy or off balance. Patient states he feels presyncopal.Patient denies any fever or abdominal pain. She denies any new leg pain or swelling. She denies prior history of congestive heart failure. Allergies: Coded Allergies: PENICILLINS (Verified Allergy, Unknown, 06/24/18) Patient History Past Medical History: see triage record Now: No Reviewed Nursing Documentation: PMH: Agreed; PSxH: Agreed Nursing Documentation-PMH Past Medical History: No History, Except For Hx Cardiac Problems: Yes - high cholesterol,arthritis Hx Hypertension: Yes Hx Cancer: No Hx Gastrointestinal Problems: No Hx Neurological Problems: No Review of Systems All Other Systems: negative except mentioned in HPI Physical Exam Vital Signs Date Time Temp Pulse Resp B/P (MAP) Pulse Ox O2 Delivery O2 Flow Rate FiO2 08/31/18 14:32 118 16 173/93 100 Room Air Sp02 EP Interpretation: reviewed, normal General Appearance: normal inspection, well appearing, no apparent distress, alert, GCS 15, obese, Chronically Ill Head: atraumatic ENT: normal ENT inspection, hearing grossly normal, normal voice Neck: normal inspection, full range of motion, supple, no bony tend Respiratory: normal inspection, lungs clear, normal breath sounds, no respiratory distress, no retraction, no wheezing Cardiovascular #1: normal inspection, regular rate, rhythm, no edema, systolic murmur - 2/6 systolic ejection murmur Gastrointestinal: normal inspection, normal bowel sounds, non tender, soft, no guarding, no hernia Genitourinary: no CVA tenderness Musculoskeletal: normal inspection, back normal, normal range of motion Neurologic: normal inspection, alert, oriented x3, responsive, 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 Differential diagnosis include was not limited to anemia, arrhythmia, dehydration, hyponatremia among others. Because of complexity of patient's case laboratory testing and imaging studies were ordered. EKG interpreted by me showed sinus tachycardia with a rate of [address] or T wave changes. Patient started on IV hydration due to tachycardia and likely dehydration.Patient was given some IV fluids. Dr. José Miguel Benson was contacted for inpatient management due to continued orthostasis and prior history of hyponatremia Labs Test 09/02/18 05:52 09/03/18 05:05 09/03/18 21:00 09/04/18 11:00 Reticulocyte Count 0.5 % (0.0-2.0) Prothrombin Time 10.6 SEC (9.30-11.50) Prothromb Time International Ratio 1.0 (0.9-1.1) Activated Partial Thromboplast Time 30 SEC (23-33) Sodium Level 136 MMOL/L (136-145) 137 MMOL/L (136-145) 137 MMOL/L (136-145) Potassium Level 4.8 MMOL/L (3.5-5.1) 5.3 MMOL/L (3.5-5.1) 4.5 MMOL/L (3.5-5.1) Chloride Level 102 MMOL/L (98-107) 105 MMOL/L (98-107) 101 MMOL/L (98-107) Carbon Dioxide Level 27 MMOL/L (21-32) 28 MMOL/L (21-32) 28 MMOL/L (21-32) Anion Gap 7 mmol/L (5-15) 4 mmol/L (5-15) 8 mmol/L (5-15) Blood Urea Nitrogen 31 mg/dL (7-18) 29 mg/dL (7-18) 23 mg/dL (7-18) Creatinine 2.0 MG/DL (0.55-1.30) 1.6 MG/DL (0.55-1.30) 1.3 MG/DL (0.55-1.30) Estimat Glomerular Filtration Rate mL/min (>60) mL/min (>60) mL/min (>60) Glucose Level 82 MG/DL (74-106) 80 MG/DL (74-106) 95 MG/DL (74-106) Calcium Level 8.2 MG/DL (8.5-10.1) 8.7 MG/DL (8.5-10.1) 8.9 MG/DL (8.5-10.1) Iron Level 109 ug/dL (50-175) Total Iron Binding Capacity 252 ug/dL (250-450) Percent Iron Saturation 43 % (15-50) Unsaturated Iron Binding 143 ug/dL (112-346) Ferritin 120 NG/ML (8-388) Total Bilirubin 0.4 MG/DL (0.2-1.0) Aspartate Amino Transf (AST/SGOT) 23 U/L (15-37) Alanine Aminotransferase (ALT/SGPT) 23 U/L (12-78) Alkaline Phosphatase 74 U/L (46-116) Total Protein 6.6 G/DL (6.4-8.2) Albumin 3.1 G/DL (3.4-5.0) Globulin 3.5 g/dL Albumin/Globulin Ratio 0.9 (1.0-2.7) Carcinoembryonic Antigen 4.2 ng/mL (0.0-4.7) Vitamin B12 Level 548 PG/ML (193-986) Folate 26.1 NG/ML (8.6-58.9) White Blood Count 4.1 K/UL (4.8-10.8) Red Blood Count 3.18 M/UL (4.20-5.40) Hemoglobin 9.0 G/DL (12.0-16.0) Hematocrit 27.9 % (37.0-47.0) Mean Corpuscular Volume 88 FL (80-99) Mean Corpuscular Hemoglobin 28.2 PG (27.0-31.0) Mean Corpuscular Hemoglobin Concent 32.2 G/DL (32.0-36.0) Red Cell Distribution Width 11.9 % (11.6-14.8) Platelet Count 183 K/UL (150-450) Mean Platelet Volume 6.5 FL (6.5-10.1) Neutrophils (%) (Auto) 39.9 % (45.0-75.0) Lymphocytes (%) (Auto) 43.0 % (20.0-45.0) Monocytes (%) (Auto) 12.1 % (1.0-10.0) Eosinophils (%) (Auto) 3.2 % (0.0-3.0) Basophils (%) (Auto) 1.8 % (0.0-2.0) Urine Color Pale yellow Urine Appearance Clear Urine pH 5 (4.5-8.0) Urine Specific [place] 1.010 (1.005-1.035) Urine Protein Negative (NEGATIVE) Urine Glucose (UA) Negative (NEGATIVE) Urine Ketones Negative (NEGATIVE) Urine Blood Negative (NEGATIVE) Urine Nitrite Negative (NEGATIVE) Urine Bilirubin Negative (NEGATIVE) Urine Urobilinogen Normal MG/DL (0.0-1.0) Urine Leukocyte Esterase Negative (NEGATIVE) EKG Diagnostic Results Rate: tachycardiac Rhythm: NSR ST Segments: no acute changes Last Vital Signs Date Time Temp Pulse Resp B/P (MAP) Pulse Ox O2 Delivery O2 Flow Rate FiO2 08/31/18 14:40 105 16 Room Air 08/31/18 14:40 173/93 100 Status: improved Disposition: ADMITTED INPATIENT Condition: Stable Scripts Simethicone* (SIMETHICONE*) 80 Mg Tab.chew 80 MG ORAL QIDPRN PRN for 30 Days, #30 TAB Prov: José Miguel Benson MD 09/04/18 Referrals: José Miguel Benson MD (PCP) Jorge L Sow MD Aug 31, 2018 14:58
[2018-08-31] MEDS ORDERED: NS 250 ML IVPB ONE (15:00)
--- NOTE | 2018-08-31 15:00 | NUR ---
ED Nurse Note: patient was provided warm blanket and sandwich
[2018-08-31 15:10] LABS: APPEARANCE,URINE CLEAR; BILIRUBIN, URINE NEGATIVE (NEGATIVE); COLOR,URINE PALE YELLOW; GLUCOSE, URINE (UA) NEGATIVE (NEGATIVE); KETONES,URINE NEGATIVE (NEGATIVE); LEUKOCYTE ESTERASE ,URINE NEGATIVE (NEGATIVE); NITRITE,URINE NEGATIVE (NEGATIVE); PH,URINE 8 (4.5-8.0); PROTEIN,URINE 1+ (NEGATIVE); UROBILINOGEN,URINE NORMAL MG/DL (0.0-1.0)
[2018-08-31 15:16] LABS: BASOPHILS % (AUTO) 1.5 % (0.0-2.0); EOSINOPHILS % (AUTO) 0.7 % (0.0-3.0); HEMATOCRIT 35.6 % (37.0-47.0); HEMOGLOBIN 11.7 G/DL (12.0-16.0); LYMPHOCYTES % (AUTO) 28.3 % (20.0-45.0); MEAN CORPUSCULAR VOLUME 85 FL (80-99); MONOCYTES % (AUTO) 9.6 % (1.0-10.0); NEUTROPHILS % (AUTO) 59.9 % (45.0-75.0); PLATELET COUNT 270 K/UL (150-450); RED BLOOD COUNT 4.17 M/UL (4.20-5.40); RED CELL DISTRIBUTION WIDTH 12.1 % (11.6-14.8); WHITE BLOOD COUNT 5.8 K/UL (4.8-10.8)
[2018-08-31 15:25] LABS: ANION GAP 11 mmol/L (5-15); BLOOD UREA NITROGEN 20 mg/dL (7-18); CALCIUM 9.6 MG/DL (8.5-10.1); CARBON DIOXIDE 26 MMOL/L (21-32); CHLORIDE 101 MMOL/L (98-107); CREATININE 1.4 MG/DL (0.55-1.30); SODIUM 138 MMOL/L (136-145)
[2018-08-31 15:37] LABS: ALANINE AMINOTRANSFERASE 23 U/L (12-78); ALBUMIN 3.8 G/DL (3.4-5.0); ALBUMIN/GLOBULIN RATIO 0.9 (1.0-2.7); ALKALINE PHOSPHATASE 96 U/L (46-116); ASPARTATE AMINO TRANSFERASE 19 U/L (15-37); BILIRUBIN,TOTAL 0.3 MG/DL (0.2-1.0)
[2018-08-31] MEDS ORDERED: Bactrim-DS 1 tab ORAL ONE (15:45)
[2018-08-31] MEDS ORDERED: [UNRECOGNIZED DRUG - OTHER] (16:35)
[2018-08-31 16:39] VITALS: BP 129/72
--- NOTE | 2018-08-31 17:15 | NUR ---
ED Nurse Note: Dr Benson at the bed side.
--- NOTE | 2018-08-31 17:31 | NUR ---
ED Nurse Note: Report given to Chetan RN of telemetry unit. Bed is not ready yet. Pt can go up after 10mins per receiving RN.
--- NOTE | 2018-08-31 17:44 | History & Physical ---
History and Physical History & Physicial HISTORY AND PHYSICAL Patient: GUS BATRES [facility] Rec #: [id number] Patient No.: [id number] Date of Service:08/31/18 DATE OF ADMISSION: 08/31/18 HISTORY OF PRESENT ILLNESS: This is a 77-year-old female with history of hypertension, hyperlipidemia, hyponatremia secondary to SIADH, osteoarthritis of the knees, who presents to the emergency room with near syncope. She states she was sitting at home today and nearly fainted after standing. She immediately pressed life alert when she nearly fainted. She feels dizzy when standing. recently seen in Er on 08/24 and Na 126. I saw her in my office after that and reminded her to restrict water to less than 1L/day. She now states she is dehydrated. PAST MEDICAL HISTORY: Includes hypertension, hyperlipidemia, hyponatremia in the past secondary to SIADH, CKD stage 3, obesity, osteoarthritis of knees, and osteopenia. PAST SURGICAL HISTORY: None. SOCIAL HISTORY: The patient does not drink alcohol. The patient does not smoke. She lives by herself. No drugs. ALLERGIES: SUSANA inhibitors causing cough. FAMILY HISTORY: Noncontributory. MEDICATIONS: Reviewed in [facility]. REVIEW OF SYSTEMS: A 12-point review of systems is negative except for pertinent positives as mentioned above. PHYSICAL EXAMINATION: Last 24 Hour Vital Signs Date Time Temp Pulse Resp B/P (MAP) Pulse Ox O2 Delivery O2 Flow Rate FiO2 08/31/18 16:39 72 25 129/72 100 Room Air 08/31/18 14:40 105 16 Room Air 08/31/18 14:40 105 16 173/93 100 Room Air 08/31/18 14:32 118 16 173/93 100 Room Air GENERAL: No acute distress. The patient is alert, awake, and oriented x3. HEENT: Normocephalic/atraumatic. NECK: Supple. No JVD. LUNGS: Clear to auscultation bilaterally. No crackles, rhonchi, or rales. CARDIOVASCULAR: Regular rate and rhythm. Normal S1, S2. ABDOMEN: Soft, nontender, and nondistended. EXTREMITIES: No clubbing, cyanosis, or edema. LABORATORY AND DIAGNOSTIC DATA: Laboratory Tests Test 08/31/18 14:40 White Blood Count 5.8 K/UL (4.8-10.8) Red Blood Count 4.17 M/UL (4.20-5.40) L Hemoglobin 11.7 G/DL (12.0-16.0) L Hematocrit 35.6 % (37.0-47.0) L Mean Corpuscular Volume 85 FL (80-99) Mean Corpuscular Hemoglobin 28.1 PG (27.0-31.0) Mean Corpuscular Hemoglobin Concent 32.9 G/DL (32.0-36.0) Red Cell Distribution Width 12.1 % (11.6-14.8) Platelet Count 270 K/UL (150-450) Mean Platelet Volume 5.8 FL (6.5-10.1) L Neutrophils (%) (Auto) 59.9 % (45.0-75.0) Lymphocytes (%) (Auto) 28.3 % (20.0-45.0) Monocytes (%) (Auto) 9.6 % (1.0-10.0) Eosinophils (%) (Auto) 0.7 % (0.0-3.0) Basophils (%) (Auto) 1.5 % (0.0-2.0) Urine Color Pale yellow Urine Appearance Clear Urine pH 8 (4.5-8.0) Urine Specific [place] 1.010 (1.005-1.035) Urine Protein 1+ (NEGATIVE) H Urine Glucose (UA) Negative (NEGATIVE) Urine Ketones Negative (NEGATIVE) Urine Blood Negative (NEGATIVE) Urine Nitrite Negative (NEGATIVE) Urine Bilirubin Negative (NEGATIVE) Urine Urobilinogen Normal MG/DL (0.0-1.0) Urine Leukocyte Esterase Negative (NEGATIVE) Urine RBC 5-10 /HPF (0 - 2) H Urine WBC 10-15 /HPF (0 - 2) H Urine Squamous Epithelial Cells Few /LPF (NONE/OCC) Urine Bacteria Many /HPF (NONE) H Sodium Level 138 MMOL/L (136-145) Potassium Level 4.0 MMOL/L (3.5-5.1) Chloride Level 101 MMOL/L (98-107) Carbon Dioxide Level 26 MMOL/L (21-32) Anion Gap 11 mmol/L (5-15) Blood Urea Nitrogen 20 mg/dL (7-18) H Creatinine 1.4 MG/DL (0.55-1.30) H Estimat Glomerular Filtration Rate mL/min (>60) Glucose Level 127 MG/DL (74-106) H Calcium Level 9.6 MG/DL (8.5-10.1) Total Bilirubin 0.3 MG/DL (0.2-1.0) Aspartate Amino Transf (AST/SGOT) 19 U/L (15-37) Alanine Aminotransferase (ALT/SGPT) 23 U/L (12-78) Alkaline Phosphatase 96 U/L (46-116) Troponin I 0.000 ng/mL (0.000-0.056) Pro-B-Type Natriuretic Peptide 193 pg/mL (0-125) H Total Protein 8.0 G/DL (6.4-8.2) Albumin 3.8 G/DL (3.4-5.0) Globulin 4.2 g/dL Albumin/Globulin Ratio 0.9 (1.0-2.7) L Lipase 287 U/L (73-393) Thyroid Stimulating Hormone (TSH) 1.504 uiU/mL (0.358-3.740) ASSESSMENT: 1. Near syncope - likely orthostatic hypotension (tachycardia and dizziness when standing; she is on fluid restriction bc of SIADH) 2. SIADH 3. Weakness, likely secondary to dehydration. 4. Hypertension. 5. CKD, stage 3. 6. Burping and abd cramps PLAN: 1. The patient to be admitted to med/surg. 2. IV fluids Bolus ordered 3. Continue losartan 100mg qd, amlodipine 10mg qd, hydralazine 100mg PO BID 4. Renal consult for SIADH 5. GI consult for burping and abdominal cramps José Miguel Benson MD Aug 31, 2018 17:44
[2018-08-31 17:45] VITALS: BP 133/59
--- NOTE | 2018-08-31 17:45 | NUR ---
TRANSFER TO FLOOR: Patient transferred to Telemetry as ordered, per . Report given to POLLY Benton.
--- NOTE | 2018-08-31 18:11 | NUR ---
CASE MANAGEMENT: INITIAL REVIEW 77 YO F LATANYAA FROM HOME CC: GEN WEAKNESS PMHx: HLD. ARTHRITIS. SI:NEAR SYNCOPE. UTI. HR 118 RR 16 B/P 173/93 SATS 100% ON RA BUN 20 CR 1.4 GLU 127 BNP 193 IS: NS BOLUS X1 MYLANTA PO X1 BACTRIM IV X1 PATIENT ADMITTED TO TELE 08/31/2018 @ 1640 DCP: PATIENT TO DISCHARGED TO HOME ONCE MEDICALLY CLEARED Addendum: 08/31/18 at 1948 by Jenelle Tao CM INTERQUAL MET
--- NOTE | 2018-08-31 19:15 | NUR ---
NURSE NOTES: Received pt. and report from POLLY Muir. Observe pt. resting in bed with both open open. Pt. is A/Ox4. potline monitor is in placed, IV site intact, asymptomatic, and patent. Bed is in the lowest position and locked. Call light within reach. No signs and symptom of acute distress noted at this time. Will continue plan of care.
[2018-08-31] MEDS: HydrALAZINE 50mg tab ORAL SCH (19:26)
[2018-08-31 20:00] VITALS: BP 143/76
[2018-08-31] MEDS: Atorvastatin 20mg tab ORAL SCH (21:10)
[2018-08-31] MEDS: Heparin 5000 units/ml inj SUBQ SCH (21:12)
[2018-08-31] MEDS: Simethicone 80mg tab ORAL PRN (21:30)
[2018-09-01] VITALS: BP 123/60
[2018-09-01] MEDS: Simethicone 80mg tab ORAL PRN ×2 (03:35→09:42)
[2018-09-01 04:00] VITALS: BP 138/68
[2018-09-01 06:36] LABS: BASOPHILS % (AUTO) 1.3 % (0.0-2.0); EOSINOPHILS % (AUTO) 0.5 % (0.0-3.0); HEMATOCRIT 32.3 % (37.0-47.0); HEMOGLOBIN 10.3 G/DL (12.0-16.0); LYMPHOCYTES % (AUTO) 29.3 % (20.0-45.0); MEAN CORPUSCULAR VOLUME 88 FL (80-99); MONOCYTES % (AUTO) 12.7 % (1.0-10.0); NEUTROPHILS % (AUTO) 56.2 % (45.0-75.0); PLATELET COUNT 248 K/UL (150-450); RED BLOOD COUNT 3.69 M/UL (4.20-5.40); RED CELL DISTRIBUTION WIDTH 12.1 % (11.6-14.8); WHITE BLOOD COUNT 4.9 K/UL (4.8-10.8)
[2018-09-01 07:05] LABS: ANION GAP 8 mmol/L (5-15); BLOOD UREA NITROGEN 27 mg/dL (7-18); CALCIUM 9.2 MG/DL (8.5-10.1); CARBON DIOXIDE 27 MMOL/L (21-32); CHLORIDE 102 MMOL/L (98-107); CREATININE 1.8 MG/DL (0.55-1.30); POTASSIUM 5.1 MMOL/L (3.5-5.1); SODIUM 137 MMOL/L (136-145)
--- NOTE | 2018-09-01 07:31 | NUR ---
NURSE NOTES: Received report from POLLY Hemphill. Patient is eating breakfast while sitting on the bed and is in stable condition. No acute distress/SOB noted. Patient denies any pain/discomfort. Will continue plan of care.
--- NOTE | 2018-09-01 07:58 | NUR ---
HAND-OFF: Report given to POLLY Nichols.
[2018-09-01 08:00] VITALS: BP 114/54
[2018-09-01] MEDS: Aspirin EC 81mg tab ORAL SCH (08:59)
[2018-09-01] MEDS ORDERED: Losartan 50mg tab ORAL SCH (09:00)
[2018-09-01] MEDS: HydrALAZINE 50mg tab ORAL SCH (09:00)
[2018-09-01] MEDS: Losartan 50mg tab ORAL SCH (09:00)
[2018-09-01] MEDS: Heparin 5000 units/ml inj SUBQ SCH ×2 (09:07→21:09)
--- NOTE | 2018-09-01 11:02 | GI Initial Consult Note ---
History of Present Illness General Date patient seen: Sep 01, 2018 Time patient seen: 10:59 Reason for Hospitalization: Generalized Weakness Referring physician: SABAS CHANDRA Reason for Consultation: CONSTIPATION Present Illness HPI Patient is a 77-year-old female brought in by EMS after increased generalized weakness and near syncope. Patient had prior history of hyponatremia and states that she had similar symptoms in the past when her sodium went to low. Denies any chest or abdominal pain. She denies feeling dizzy or off balance. Patient states he feels presyncopal.Patient denies any fever or abdominal pain. She denies any new leg pain or swelling. She denies prior history of congestive heart failure. GI consulted for anemia and reported constipation. Patient was seen, awake alert and oriented x4 no apparent distress. Denies any nausea vomiting. Complains of constipation, stated that her last bowel movement limits 2 days ago. Patient has complaint of abdominal gas pain and discomfort. She states that her last colonoscopy and upper endoscopy was approximately 9 months ago which was unremarkable. Patient has a hemoglobin 10.3. Denies any vertigo at this time. Home Meds Active Scripts Atorvastatin Calcium* (ATORVASTATIN CALCIUM*) 40 Mg Tablet, 40 MG ORAL BEDTIME, #30 TAB Prov:Sabas Chandra MD 12/13/15 Amlodipine Besylate (Norvasc) 10 Mg Tablet, 10 MG ORAL DAILY, #30 TAB Prov:Sabas Chandra MD 12/13/15 Reported Medications Unobtainable Meds (UNOBTAINABLE MEDS) Ea 08/31/18 Benzonatate* (BENZONATATE*) 200 Mg Capsule, 200 MG ORAL THREE TIMES A DAY, PERLE 06/24/18 Losartan Potassium (LOSARTAN POTASSIUM) 100 Mg Tablet, 100 MG ORAL DAILY, TAB 06/24/18 Rosuvastatin Calcium (Crestor) 5 Mg Tablet, 10 MG ORAL DAILY, TAB 06/24/18 Ergocalciferol (Vitamin D2)* (VITAMIN D*) 50,000 Unit Capsule, 82279 UNIT ORAL ONCE A WEEK, CAP 06/24/18 Calcium Carbonate (CALCIUM CARBONATE) 200 Mg Tab.chew, 200 MG PO, TAB 06/24/18 Omeprazole (OMEPRAZOLE) 20 Mg Capsule.dr, 20 MG ORAL DAILY, CAP 12/10/15 Aspirin Ec* (ASPIRIN EC*) 81 Mg Tablet.dr, 81 MG ORAL DAILY, TAB 12/10/15 Med list reviewed/reconciled: Yes Allergies: Coded Allergies: PENICILLINS (Verified Allergy, Unknown, 06/24/18) Patient History History Provided By: Patient, Medical Record H Narrative Past Medical History: No History, Except For Hx Cardiac Problems: Yes - high cholesterol,arthritis Hx Hypertension: Yes Hx Cancer: No Hx Gastrointestinal Problems: No Hx Neurological Problems: No Social History: Denies: smoking, alcohol use, drug use, other Review of Systems All Other Systems: negative except mentioned in HPI Physical Exam Vital Signs Date Time Temp Pulse Resp B/P (MAP) Pulse Ox O2 Delivery O2 Flow Rate FiO2 08/31/18 14:32 118 16 173/93 100 Room Air 08/31/18 17:45 98.8 Sp02 EP Interpretation: reviewed, normal Labs Laboratory Tests Test 08/31/18 14:40 09/01/18 06:10 09/01/18 07:15 White Blood Count 5.8 K/UL (4.8-10.8) 4.9 K/UL (4.8-10.8) Red Blood Count 4.17 M/UL (4.20-5.40) L 3.69 M/UL (4.20-5.40) L Hemoglobin 11.7 G/DL (12.0-16.0) L 10.3 G/DL (12.0-16.0) L Hematocrit 35.6 % (37.0-47.0) L 32.3 % (37.0-47.0) L Mean Corpuscular Volume 85 FL (80-99) 88 FL (80-99) Mean Corpuscular Hemoglobin 28.1 PG (27.0-31.0) 27.8 PG (27.0-31.0) Mean Corpuscular Hemoglobin Concent 32.9 G/DL (32.0-36.0) 31.7 G/DL (32.0-36.0) L Red Cell Distribution Width 12.1 % (11.6-14.8) 12.1 % (11.6-14.8) Platelet Count 270 K/UL (150-450) 248 K/UL (150-450) Mean Platelet Volume 5.8 FL (6.5-10.1) L 5.8 FL (6.5-10.1) L Neutrophils (%) (Auto) 59.9 % (45.0-75.0) 56.2 % (45.0-75.0) Lymphocytes (%) (Auto) 28.3 % (20.0-45.0) 29.3 % (20.0-45.0) Monocytes (%) (Auto) 9.6 % (1.0-10.0) 12.7 % (1.0-10.0) H Eosinophils (%) (Auto) 0.7 % (0.0-3.0) 0.5 % (0.0-3.0) Basophils (%) (Auto) 1.5 % (0.0-2.0) 1.3 % (0.0-2.0) Urine Color Pale yellow Urine Appearance Clear Urine pH 8 (4.5-8.0) Urine Specific [place] 1.010 (1.005-1.035) Urine Protein 1+ (NEGATIVE) H Urine Glucose (UA) Negative (NEGATIVE) Urine Ketones Negative (NEGATIVE) Urine Blood Negative (NEGATIVE) Urine Nitrite Negative (NEGATIVE) Urine Bilirubin Negative (NEGATIVE) Urine Urobilinogen Normal MG/DL (0.0-1.0) Urine Leukocyte Esterase Negative (NEGATIVE) Urine RBC 5-10 /HPF (0 - 2) H Urine WBC 10-15 /HPF (0 - 2) H Urine Squamous Epithelial Cells Few /LPF (NONE/OCC) Urine Bacteria Many /HPF (NONE) H Sodium Level 138 MMOL/L (136-145) 137 MMOL/L (136-145) Potassium Level 4.0 MMOL/L (3.5-5.1) 5.1 MMOL/L (3.5-5.1) Chloride Level 101 MMOL/L (98-107) 102 MMOL/L (98-107) Carbon Dioxide Level 26 MMOL/L (21-32) 27 MMOL/L (21-32) Anion Gap 11 mmol/L (5-15) 8 mmol/L (5-15) Blood Urea Nitrogen 20 mg/dL (7-18) H 27 mg/dL (7-18) H Creatinine 1.4 MG/DL (0.55-1.30) H 1.8 MG/DL (0.55-1.30) H Estimat Glomerular Filtration Rate mL/min (>60) mL/min (>60) Glucose Level 127 MG/DL (74-106) H 90 MG/DL (74-106) Calcium Level 9.6 MG/DL (8.5-10.1) 9.2 MG/DL (8.5-10.1) Total Bilirubin 0.3 MG/DL (0.2-1.0) Aspartate Amino Transf (AST/SGOT) 19 U/L (15-37) Alanine Aminotransferase (ALT/SGPT) 23 U/L (12-78) Alkaline Phosphatase 96 U/L (46-116) Troponin I 0.000 ng/mL (0.000-0.056) Pro-B-Type Natriuretic Peptide 193 pg/mL (0-125) H Total Protein 8.0 G/DL (6.4-8.2) Albumin 3.8 G/DL (3.4-5.0) Globulin 4.2 g/dL Albumin/Globulin Ratio 0.9 (1.0-2.7) L Lipase 287 U/L (73-393) Thyroid Stimulating Hormone (TSH) 1.504 uiU/mL (0.358-3.740) Urine Random Sodium 62 mmol/L (20-110) General Appearance: well appearing, no apparent distress, alert Head: normocephalic EENT: PERRL/EOMI, normal ENT inspection Neck: supple Respiratory: normal breath sounds, no respiratory distress Cardiovascular: normal rate Gastrointestinal: normal inspection, non tender, soft, normal bowel sounds, non -distended Rectal: deferred Genitourinary: no CVA tenderness Musculoskeletal: normal inspection, back normal Neurologic: normal inspection, alert, oriented x3, responsive Psychiatric: normal inspection, judgement/insight normal, memory normal Skin: normal inspection, normal color, no rash, warm/dry, palpation normal, well hydrated Lymphatic: normal inspection, no adenopathy Current Medications Current Medications Medications (Trade) Dose Ordered Sig/Amos Route PRN Reason Start Time Stop Time Status Last Admin Dose Admin Acetaminophen (Tylenol) 650 mg Q4H PRN ORAL Mild Pain (Pain Scale 1-3) 08/31/18 17:30 09/30/18 17:29 Amlodipine Besylate (Norvasc) 10 mg DAILY ORAL 09/01/18 09:00 10/01/18 08:59 09/01/18 08:59 Aspirin (Ecotrin) 81 mg DAILY ORAL 09/01/18 09:00 10/01/18 08:59 09/01/18 08:59 Atorvastatin Calcium (Lipitor) 40 mg BEDTIME ORAL 08/31/18 21:00 09/30/18 20:59 08/31/18 21:10 Dextrose (Dextrose 50%) 25 ml Q30M PRN IV Hypoglycemia 08/31/18 17:30 09/30/18 17:29 Dextrose (Dextrose 50%) 50 ml Q30M PRN IV Hypoglycemia 08/31/18 17:30 09/30/18 17:29 Ergocalciferol (Drisdol) 50,000 intlu ONCE A WEEK ORAL 09/04/18 09:00 10/04/18 08:59 Heparin Sodium (Porcine) (Heparin 5000 units/ml) 5,000 units EVERY 12 HOURS SUBQ 08/31/18 21:00 09/30/18 20:59 09/01/18 09:07 Hydralazine HCl (Apresoline) 100 mg BID ORAL 08/31/18 18:00 09/30/18 17:59 09/01/18 09:00 Losartan Potassium (Cozaar) 100 mg DAILY ORAL 09/01/18 09:00 10/01/18 08:59 09/01/18 09:00 Simethicone (Mylicon) 80 mg Q6H PRN ORAL Gas 08/31/18 21:00 09/30/18 20:59 09/01/18 09:42 GI: Plan Problems: (1) Anemia (2) Constipation (3) Dehydration (4) Gastroenteritis Plan Recent history of endoscopy and colonoscopy Okay to advance diet Begin bowel regimen, and magnesium citrate x1 Colace plus MiraLAX anemia work up OB stool r/o GI bleed monitor H&H, prn transfusions bowel regime ppi fu labs Discussed with Dr. Maurice. Thank you for this patient referral, we will follow. The patient was seen and examined at bedside and all new and available data was reviewed in the patients chart. I agree with the above findings, impression and plan. (Patient seen earlier today. Signature stamp does not reflect patient encounter time.). - MD Kristina Mitchell,[facility] [employer] ATTENDANT Sep 01, 2018 11:02
[2018-09-01 12:00] VITALS: BP 93/46
[2018-09-01] MEDS ORDERED: Magnesium Citrate Liq Btl ORAL ONE (12:00)
[2018-09-01] MEDS: Docusate 100mg cap ORAL SCH ×2 (12:17→17:36)
--- NOTE | 2018-09-01 12:38 | Consultation ---
Consult Note Assessment/Plan Renal consult dictated # [id number] Reynaldo Wang MD Sep 01, 2018 12:38
[2018-09-01 16:00] VITALS: BP 112/65
--- NOTE | 2018-09-01 19:10 | NUR ---
NURSE NOTES: Received pt. and report from POLLY Nichols. Observe pt. resting in bed with both open open and watching television. Pt. is A/Ox4. spring former is in placed, IV site intact, asymptomatic, and patent; currently running NS @ 75cc/hr. Bed is in the lowest position and locked. Call light within reach. No signs and symptom of acute distress noted at this time. Will continue plan of care.
--- NOTE | 2018-09-01 19:15 | Consultation ---
DATE OF CONSULTATION: 09/01/2018 NEPHROLOGY CONSULTATION CONSULTING PHYSICIAN: Reynaldo Wang M.D. REFERRING PHYSICIAN: José Miguel Benson M.D. REASON FOR CONSULTATION: Acute renal failure. HISTORY OF PRESENT ILLNESS: This is a 77-year-old female, who is known to me from a previous admission in June of this year. The patient was seen then for hyponatremia. She was diagnosed with a SIADH. BUN and creatinine were 24 and 1.2. She was started on free water restriction. Eventually, discharged. The patient apparently was still on free water restriction at home, but however, she was admitted for feeling dizzy. I was asked to see her for rise in serum BUN and creatinine. She was admitted with BUN of 20 and creatinine 1.4. Today, the BUN is 27 and creatinine 1.8. The patient's sodium has been normal. It was 138 yesterday and 137 today. PAST MEDICAL HISTORY: Includes history of hypertension, hyperlipidemia, history of CKD, osteoarthritis in knees, and osteopenia. MEDICATIONS: Reviewed in the EMR. SOCIAL HISTORY: No history of smoking or alcohol abuse. The patient lives by herself. ALLERGIES: SUSANA inhibitors causing cough. REVIEW OF SYSTEMS: No diarrhea. No nausea or vomiting. PHYSICAL EXAMINATION: GENERAL: The patient is an elderly female, in no acute distress. VITAL SIGNS: Blood pressure is 114/54, pulse 103, and temperature 99.4. HEENT: [place] conjunctivae. Anicteric sclerae. NECK: Supple. LUNGS: Clear to auscultation. HEART: S1, S2 without murmurs or rubs. ABDOMEN: Soft and nontender. EXTREMITIES: No cyanosis or edema. LABORATORY FINDINGS: The CBC shows a WBC of 4900, hematocrit 32.3, hemoglobin is 10.3, and platelets 248,000. The chemistry panel shows a serum sodium of 137, potassium 5.1, chloride 102, BUN is 27, creatinine 1.8, and calcium is 9.2. UA shows 5 to 10 rbc's, 10 to 15 wbc's per high-power field, and many bacteria. ASSESSMENT: This is a 77-year-old female, who was admitted with dizziness. Her blood pressure actually is on the low side and she has also acute renal failure possibly as a result of prerenal azotemia. Other possibility such as acute tubular necrosis needs to be ruled out. I doubt obstruction. PLAN: I would take the liberty and discontinue the blood pressure medications to get higher in the 120s to 130 systolic. I would restart the patient on amlodipine at lower dose 5 mg daily later. I will give the patient a normal saline at 75 mL an hour. Her urinary tract infection will be treated with Cipro 250 mg daily. Case will be discussed with Dr. Benson. Thank you very much, Dr. Benson, for this consultation. Reynaldo Wang M.D. DR: MARCIA JOB#: [id number] CC:
--- NOTE | 2018-09-01 19:18 | NUR ---
HAND-OFF: Report given to POLLY Hemphill. Patient is in stable condition. Endorsed plan of care.
--- NOTE | 2018-09-01 19:59 | Internal Med Progress Note ---
Subjective Physician Name José Miguel Benson Attending Physician José Miguel Benson MD Current Medications Medications (Trade) Dose Ordered Sig/Amos Route PRN Reason Start Time Stop Time Status Last Admin Dose Admin Acetaminophen (Tylenol) 650 mg Q4H PRN ORAL Mild Pain (Pain Scale 1-3) 08/31/18 17:30 09/30/18 17:29 Aspirin (Ecotrin) 81 mg DAILY ORAL 09/01/18 09:00 10/01/18 08:59 09/01/18 08:59 Atorvastatin Calcium (Lipitor) 40 mg BEDTIME ORAL 08/31/18 21:00 09/30/18 20:59 08/31/18 21:10 Ciprofloxacin (Cipro 250mg tab) 250 mg DAILY ORAL 09/01/18 12:00 09/08/18 11:59 09/01/18 12:17 Dextrose (Dextrose 50%) 25 ml Q30M PRN IV Hypoglycemia 08/31/18 17:30 09/30/18 17:29 Dextrose (Dextrose 50%) 50 ml Q30M PRN IV Hypoglycemia 08/31/18 17:30 09/30/18 17:29 Docusate Sodium (Colace) 100 mg THREE TIMES A DAY ORAL 09/01/18 13:00 10/01/18 12:59 09/01/18 17:36 Ergocalciferol (Drisdol) 50,000 intlu ONCE A WEEK ORAL 09/04/18 09:00 10/04/18 08:59 Heparin Sodium (Porcine) (Heparin 5000 units/ml) 5,000 units EVERY 12 HOURS SUBQ 08/31/18 21:00 09/30/18 20:59 09/01/18 09:07 Losartan Potassium (Cozaar) 100 mg DAILY ORAL 09/01/18 09:00 10/01/18 08:59 09/01/18 09:00 Polyethylene Glycol (Miralax) 17 gm BEDTIME ORAL 09/01/18 21:00 10/01/18 20:59 Simethicone (Mylicon) 80 mg Q6H PRN ORAL Gas 08/31/18 21:00 09/30/18 20:59 09/01/18 09:42 Sodium Chloride 1,000 ml @ 75 mls/hr [id number] IV 09/01/18 12:00 10/01/18 11:59 09/01/18 12:17 Allergies: Coded Allergies: PENICILLINS (Verified Allergy, Unknown, 06/24/18) Subjective Cr up to 1.8 Hypotensive earlier with SBP in 90s no CP or sOB 12 pt ROS neg except above positives Objective Last Vital Signs Date Time Temp Pulse Resp B/P (MAP) Pulse Ox O2 Delivery O2 Flow Rate FiO2 09/01/18 16:00 88 09/01/18 16:00 98.9 20 112/65 (81) 95 09/01/18 09:00 Room Air General Appearance: no apparent distress, alert EENT: PERRL/EOMI, normal ENT inspection Neck: supple Cardiovascular: normal rate, regular rhythm Respiratory/Chest: lungs clear, normal breath sounds Abdomen: soft, no organomegaly Extremities: normal range of motion, non-tender Edema: trace edema Neurologic: alert, oriented x 3 Laboratory Tests Test 09/01/18 06:10 09/01/18 07:15 White Blood Count 4.9 K/UL (4.8-10.8) Red Blood Count 3.69 M/UL (4.20-5.40) L Hemoglobin 10.3 G/DL (12.0-16.0) L Hematocrit 32.3 % (37.0-47.0) L Mean Corpuscular Volume 88 FL (80-99) Mean Corpuscular Hemoglobin 27.8 PG (27.0-31.0) Mean Corpuscular Hemoglobin Concent 31.7 G/DL (32.0-36.0) L Red Cell Distribution Width 12.1 % (11.6-14.8) Platelet Count 248 K/UL (150-450) Mean Platelet Volume 5.8 FL (6.5-10.1) L Neutrophils (%) (Auto) 56.2 % (45.0-75.0) Lymphocytes (%) (Auto) 29.3 % (20.0-45.0) Monocytes (%) (Auto) 12.7 % (1.0-10.0) H Eosinophils (%) (Auto) 0.5 % (0.0-3.0) Basophils (%) (Auto) 1.3 % (0.0-2.0) Sodium Level 137 MMOL/L (136-145) Potassium Level 5.1 MMOL/L (3.5-5.1) Chloride Level 102 MMOL/L (98-107) Carbon Dioxide Level 27 MMOL/L (21-32) Anion Gap 8 mmol/L (5-15) Blood Urea Nitrogen 27 mg/dL (7-18) H Creatinine 1.8 MG/DL (0.55-1.30) H Estimat Glomerular Filtration Rate mL/min (>60) Glucose Level 90 MG/DL (74-106) Calcium Level 9.2 MG/DL (8.5-10.1) Urine Random Sodium 62 mmol/L (20-110) Microbiology Date/Time Source Procedure Growth Status 08/31/18 14:40 Urine,Clean Catch Urine Culture - Preliminary NO GROWTH Resulted Intake and Output 08/31/18 09/01/18 19:00 07:00 # Voids 1 Assessment/Plan Assessment/Plan ASSESSMENT: 1. Near syncope - likely orthostatic hypotension (tachycardia and dizziness when standing; she is on fluid restriction bc of SIADH) 2. SIADH 3. Weakness, likely secondary to dehydration. 4. Hypertension ----> Hypotension 5. CKD, stage 3. 6. Burping and abd cramps PLAN: 1. medsurg 2. IV fluids 3. Continue losartan 100mg qd; held hydralazine and amlodipine bc of hypotension 4. Renal consult for SIADH 5. GI consult for burping and abdominal cramps José Miguel Benson MD Sep 01, 2018 19:59
[2018-09-01 20:00] VITALS: BP 113/60
[2018-09-01] MEDS ORDERED: Miralax 17gm pkt ORAL SCH (21:00)
[2018-09-01] MEDS: Atorvastatin 20mg tab ORAL SCH (21:08)
[2018-09-02] VITALS (8 sets, daily range): BP systolic 116–168; BP diastolic 60–89
--- NOTE | 2018-09-02 07:20 | NUR ---
NURSE NOTES: Received report from POLLY Hemphill. Patient is in stable condition. No acute distress/SOB noted. Patient denies any pain/discomfort. Will continue plan of care.
--- NOTE | 2018-09-02 07:27 | NUR ---
HAND-OFF: Report given to POLLY Nichols.
[2018-09-02 08:01] LABS: ALANINE AMINOTRANSFERASE 23 U/L (12-78); ALBUMIN 3.1 G/DL (3.4-5.0); ALBUMIN/GLOBULIN RATIO 0.9 (1.0-2.7); ALKALINE PHOSPHATASE 74 U/L (46-116); ANION GAP 7 mmol/L (5-15); ASPARTATE AMINO TRANSFERASE 23 U/L (15-37); BILIRUBIN,TOTAL 0.4 MG/DL (0.2-1.0); BLOOD UREA NITROGEN 31 mg/dL (7-18); CALCIUM 8.2 MG/DL (8.5-10.1); CARBON DIOXIDE 27 MMOL/L (21-32); CHLORIDE 102 MMOL/L (98-107); FERRITIN 120 NG/ML (8-388); POTASSIUM 4.8 MMOL/L (3.5-5.1); SODIUM 136 MMOL/L (136-145)
[2018-09-02] MEDS: Aspirin EC 81mg tab ORAL SCH (08:47)
[2018-09-02] MEDS: Docusate 100mg cap ORAL SCH ×3 (08:47→17:22)
[2018-09-02 08:49] LABS: % IRON SATURATION 43 % (15-50); IRON 109 ug/dL (50-175); TOTAL IRON BINDING CAPACITY 252 ug/dL (250-450)
[2018-09-02] MEDS: Losartan 50mg tab ORAL SCH (08:49)
[2018-09-02] MEDS: Heparin 5000 units/ml inj SUBQ SCH ×2 (08:52→20:17)
[2018-09-02] MEDS ORDERED: Simethicone 80mg tab ORAL PRN (11:00)
--- NOTE | 2018-09-02 11:00 | GI Progress Note ---
Assessment/Plan Problems: (1) GERD (gastroesophageal reflux disease) ICD Codes: K21.9 - Gastro-esophageal reflux disease without esophagitis SNOMED: 004816393 (2) Gastroenteritis ICD Codes: K52.9 - Noninfective gastroenteritis and colitis, unspecified SNOMED: 05179839 (3) Anemia ICD Codes: D64.9 - Anemia, unspecified SNOMED: 567139145 (4) Constipation ICD Codes: K59.00 - Constipation, unspecified SNOMED: 96192662 (5) Dehydration ICD Codes: E86.0 - Dehydration SNOMED: 12347414 (6) Episode of generalized weakness ICD Codes: R53.1 - Weakness SNOMED: 79082397 Status: unchanged Status Narrative Discussed with Dr. Maurice Assessment/Plan Recent history of endoscopy and colonoscopy regular diet bowel regimen, Colace plus MiraLAX magnesium citrate x1 simethicone prn anemia work up OB stool r/o GI bleed monitor H&H, prn transfusions ppi fu labs The patient was seen and examined at bedside and all new and available data was reviewed in the patients chart. I agree with the above findings, impression and plan. (Patient seen earlier today. Signature stamp does not reflect patient encounter time.). - Dallin Maurice MD Subjective Subjective The patient still has complaint of constipation Abdominal discomfort Belching Objective Last 24 Hour Vital Signs Date Time Temp Pulse Resp B/P (MAP) Pulse Ox O2 Delivery O2 Flow Rate FiO2 09/02/18 09:00 Room Air 09/02/18 08:49 119/89 09/02/18 08:00 98.3 88 21 119/89 (99) 96 09/02/18 04:00 78 09/02/18 04:00 98.4 82 20 116/62 (80) 97 09/02/18 00:00 81 09/02/18 00:00 99.4 86 20 134/65 (88) 96 09/01/18 21:00 Room Air 09/01/18 20:00 98.5 92 19 113/60 (77) 98 09/01/18 20:00 89 09/01/18 16:00 88 09/01/18 16:00 98.9 93 20 112/65 (81) 95 09/01/18 12:00 94 09/01/18 12:00 99.8 102 20 93/46 (62) 93 Intake and Output 09/01/18 09/02/18 19:00 07:00 Intake Total 855 ml 900 ml Balance 855 ml 900 ml Intake IV Total 375 ml 900 ml Other 480 ml # Voids 6 4 # Bowel Movements 2 Laboratory Tests Test 09/02/18 05:52 Reticulocyte Count 0.5 % (0.0-2.0) Prothrombin Time 10.6 SEC (9.30-11.50) Prothromb Time International Ratio 1.0 (0.9-1.1) Activated Partial Thromboplast Time 30 SEC (23-33) Sodium Level 136 MMOL/L (136-145) Potassium Level 4.8 MMOL/L (3.5-5.1) Chloride Level 102 MMOL/L (98-107) Carbon Dioxide Level 27 MMOL/L (21-32) Anion Gap 7 mmol/L (5-15) Blood Urea Nitrogen 31 mg/dL (7-18) H Creatinine 2.0 MG/DL (0.55-1.30) H Estimat Glomerular Filtration Rate mL/min (>60) Glucose Level 82 MG/DL (74-106) Calcium Level 8.2 MG/DL (8.5-10.1) L Iron Level 109 ug/dL (50-175) Total Iron Binding Capacity 252 ug/dL (250-450) Percent Iron Saturation 43 % (15-50) Unsaturated Iron Binding 143 ug/dL (112-346) Ferritin 120 NG/ML (8-388) Total Bilirubin 0.4 MG/DL (0.2-1.0) Aspartate Amino Transf (AST/SGOT) 23 U/L (15-37) Alanine Aminotransferase (ALT/SGPT) 23 U/L (12-78) Alkaline Phosphatase 74 U/L (46-116) Total Protein 6.6 G/DL (6.4-8.2) Albumin 3.1 G/DL (3.4-5.0) L Globulin 3.5 g/dL Albumin/Globulin Ratio 0.9 (1.0-2.7) L Carcinoembryonic Antigen Pending Vitamin B12 Level 548 PG/ML (193-986) Folate 26.1 NG/ML (8.6-58.9) Height (Feet): 5 Height (Inches): 4.00 Weight (Pounds): 184 General Appearance: WD/WN, no apparent distress, alert Cardiovascular: normal rate Respiratory/Chest: normal breath sounds, no respiratory distress Abdominal Exam: normal bowel sounds, non tender, soft Extremities: normal range of motion, non-tender Urszula Acevedo NP Sep 02, 2018 11:00
[2018-09-02] MEDS ORDERED: Magnesium Citrate Liq Btl ORAL SCH (12:00)
--- NOTE | 2018-09-02 12:00 | Nephrology Progress Note ---
Assessment/Plan Problem List: (1) Acute on chronic renal failure Assessment: Serum creatinine is slightly higher today but no significant change. Urine output is not recorded. (2) HTN (hypertension) Assessment: Blood pressure is normal off blood pressure medications (3) SIADH (syndrome of inappropriate ADH production) Assessment: Resolved (4) Osteoarthritis (5) GERD (gastroesophageal reflux disease) Assessment: Causing nausea? (6) UTI (urinary tract infection) Assessment: On Cipro Plan Continue with IV fluid. Hold off on any blood pressure medications. Nurse as well as patient was told to keep urine for measurement. Follow BMP Subjective Subjective Patient feels nauseated today Objective Objective Last 24 Hour Vital Signs Date Time Temp Pulse Resp B/P (MAP) Pulse Ox O2 Delivery O2 Flow Rate FiO2 09/02/18 09:00 Room Air 09/02/18 08:49 119/89 09/02/18 08:00 98.3 88 21 119/89 (99) 96 09/02/18 04:00 78 09/02/18 04:00 98.4 82 20 116/62 (80) 97 09/02/18 00:00 81 09/02/18 00:00 99.4 86 20 134/65 (88) 96 09/01/18 21:00 Room Air 09/01/18 20:00 98.5 92 19 113/60 (77) 98 09/01/18 20:00 89 09/01/18 16:00 88 09/01/18 16:00 98.9 93 20 112/65 (81) 95 09/01/18 12:00 94 09/01/18 12:00 99.8 102 20 93/46 (62) 93 Intake and Output 09/01/18 09/02/18 19:00 07:00 Intake Total 855 ml 900 ml Balance 855 ml 900 ml Intake IV Total 375 ml 900 ml Other 480 ml # Voids 6 4 # Bowel Movements 2 Laboratory Tests 09/02/18 05:52: Reticulocyte Count 0.5, Prothrombin Time 10.6, Prothromb Time International Ratio 1.0, Activated Partial Thromboplast Time 30, Sodium Level 136, Potassium Level 4.8, Chloride Level 102, Carbon Dioxide Level 27, Anion Gap 7, Blood Urea Nitrogen 31H, Creatinine 2.0H, Estimat Glomerular Filtration Rate , Glucose Level 82, Calcium Level 8.2L, Iron Level 109, Total Iron Binding Capacity 252, Percent Iron Saturation 43, Unsaturated Iron Binding 143, Ferritin 120, Total Bilirubin 0.4, Aspartate Amino Transf (AST/SGOT) 23, Alanine Aminotransferase ( ALT/SGPT) 23, Alkaline Phosphatase 74, Total Protein 6.6, Albumin 3.1L, Globulin 3.5, Albumin/Globulin Ratio 0.9L, Carcinoembryonic Antigen [Pending], Vitamin B12 Level 548, Folate 26.1 Height (Feet): 5 Height (Inches): 4.00 Weight (Pounds): 184 Cardiovascular: normal rate Respiratory/Chest: chest wall non-tender Extremities: other - No edema Reynaldo Wang MD Sep 02, 2018 12:00
--- NOTE | 2018-09-02 12:29 | NUR ---
CASE MANAGEMENT:REVIEW 09/02/18 SI: NEAR SYNCOPE. SAIDH. CKD BURPING AD CRAMPS 98.3 88 21 119/89 96% ON RA BUN+31 CR+2.0 IS: MAG CITRATE PO X1 PROTONIX PO QD CIPRO PO QD IVF @ 75/HR ASA PO QD COZAAR PO QD HEPARIN SQ Q12 : TELEMETRY STATUS PLAN: GI CONSULT FOR
--- NOTE | 2018-09-02 16:45 | NUR ---
NURSE NOTES: REC'D FROM 2E A 77 YR OLD FEMALE WITH DX OF NEAR SYNCOPE AND UTI. AWAKE/ALERT. NO C/O PAIN. IN NO DISTRESS/
--- NOTE | 2018-09-02 16:50 | NUR ---
TRANSFER TO FLOOR: Patient transferred to 3E/310-1. Report given to POLLY Conklin. Inventory check done. Patient is in stable condition and denies any pain/discomfort. Endorsed plan of care.
[2018-09-02] MEDS ORDERED: Magnesium Citrate Liq Btl ORAL ONE (17:15)
--- NOTE | 2018-09-02 17:24 | Internal Med Progress Note ---
Subjective Physician Name José Miguel Benson Attending Physician José Miguel Benson MD Current Medications Medications (Trade) Dose Ordered Sig/Amos Route PRN Reason Start Time Stop Time Status Last Admin Dose Admin Acetaminophen (Tylenol) 650 mg Q4H PRN ORAL Mild Pain (Pain Scale 1-3) 09/02/18 17:07 09/30/18 17:06 Aspirin (Ecotrin) 81 mg DAILY ORAL 09/03/18 09:00 10/01/18 08:59 Atorvastatin Calcium (Lipitor) 40 mg BEDTIME ORAL 09/02/18 21:00 09/30/18 20:59 Ciprofloxacin (Cipro 250mg tab) 250 mg DAILY ORAL 09/03/18 09:00 09/08/18 11:59 Dextrose (Dextrose 50%) 25 ml Q30M PRN IV Hypoglycemia 09/02/18 17:30 09/30/18 17:29 Dextrose (Dextrose 50%) 50 ml Q30M PRN IV Hypoglycemia 09/02/18 17:30 09/30/18 17:29 Docusate Sodium (Colace) 100 mg THREE TIMES A DAY ORAL 09/02/18 18:00 10/01/18 12:59 Ergocalciferol (Drisdol) 50,000 intlu ONCE A WEEK ORAL 09/04/18 09:00 10/04/18 08:59 Heparin Sodium (Porcine) (Heparin 5000 units/ml) 5,000 units EVERY 12 HOURS SUBQ 09/02/18 21:00 09/30/18 20:59 Losartan Potassium (Cozaar) 100 mg DAILY ORAL 09/03/18 09:00 10/01/18 08:59 Ondansetron HCl (Zofran) 4 mg Q6H PRN IVP Nausea & Vomiting 09/02/18 17:08 10/02/18 17:07 Pantoprazole (Protonix) 40 mg DAILY ORAL 09/03/18 09:00 10/02/18 10:59 Polyethylene Glycol (Miralax) 17 gm BEDTIME ORAL 09/02/18 21:00 10/01/18 20:59 Simethicone (Mylicon) 80 mg QIDPRN PRN ORAL GAS PAIN 09/02/18 17:09 10/02/18 17:08 Sodium Chloride 1,000 ml @ 75 mls/hr [id number] IV 09/02/18 17:07 10/02/18 17:06 Allergies: Coded Allergies: PENICILLINS (Verified Allergy, Unknown, 06/24/18) Subjective Cr up to 2 Bp normotensive no CP or sOB 12 pt ROS neg except above positives Objective Last Vital Signs Date Time Temp Pulse Resp B/P (MAP) Pulse Ox O2 Delivery O2 Flow Rate FiO2 09/02/18 16:00 98.5 85 20 136/66 (89) 96 09/02/18 09:00 Room Air General Appearance: WD/WN, no apparent distress EENT: PERRL/EOMI, normal ENT inspection Neck: supple, normal inspection Cardiovascular: normal rate, regular rhythm Respiratory/Chest: lungs clear, normal breath sounds Abdomen: soft, no organomegaly Edema: trace edema, mild edema Laboratory Tests Test 09/02/18 05:52 Reticulocyte Count 0.5 % (0.0-2.0) Prothrombin Time 10.6 SEC (9.30-11.50) Prothromb Time International Ratio 1.0 (0.9-1.1) Activated Partial Thromboplast Time 30 SEC (23-33) Sodium Level 136 MMOL/L (136-145) Potassium Level 4.8 MMOL/L (3.5-5.1) Chloride Level 102 MMOL/L (98-107) Carbon Dioxide Level 27 MMOL/L (21-32) Anion Gap 7 mmol/L (5-15) Blood Urea Nitrogen 31 mg/dL (7-18) H Creatinine 2.0 MG/DL (0.55-1.30) H Estimat Glomerular Filtration Rate mL/min (>60) Glucose Level 82 MG/DL (74-106) Calcium Level 8.2 MG/DL (8.5-10.1) L Iron Level 109 ug/dL (50-175) Total Iron Binding Capacity 252 ug/dL (250-450) Percent Iron Saturation 43 % (15-50) Unsaturated Iron Binding 143 ug/dL (112-346) Ferritin 120 NG/ML (8-388) Total Bilirubin 0.4 MG/DL (0.2-1.0) Aspartate Amino Transf (AST/SGOT) 23 U/L (15-37) Alanine Aminotransferase (ALT/SGPT) 23 U/L (12-78) Alkaline Phosphatase 74 U/L (46-116) Total Protein 6.6 G/DL (6.4-8.2) Albumin 3.1 G/DL (3.4-5.0) L Globulin 3.5 g/dL Albumin/Globulin Ratio 0.9 (1.0-2.7) L Carcinoembryonic Antigen Pending Vitamin B12 Level 548 PG/ML (193-986) Folate 26.1 NG/ML (8.6-58.9) Microbiology Date/Time Source Procedure Growth Status 08/31/18 14:40 Urine,Clean Catch Urine Culture - Preliminary Mixed Gram Positive Organism Resulted Intake and Output 09/01/18 09/02/18 19:00 07:00 Intake Total 855 ml 900 ml Balance 855 ml 900 ml Intake IV Total 375 ml 900 ml Other 480 ml # Voids 6 4 # Bowel Movements 2 Assessment/Plan Assessment/Plan ASSESSMENT: 1. Near syncope - likely orthostatic hypotension (tachycardia and dizziness when standing; she is on fluid restriction bc of SIADH) 2. SIADH 3. Weakness, likely secondary to dehydration. 4. Hypertension ----> Hypotension 5. GUILLERMO on CKD - possibly ATN 6. Burping and abd cramps PLAN: 1. medsurg 2. IV fluids 3. Continue losartan 100mg qd; 4. Renal consult for SIADH 5. GI consult for burping and abdominal cramps 6. bowel regimen, Colace plus MiraLAX 7. simethicone prn 8. anemia work up needs hospitalization for ATN. if Cr plateaus and comes down then can go home José Miguel Benson MD Sep 02, 2018 17:24
--- NOTE | 2018-09-02 18:54 | NUR ---
NURSE NOTES: comfortable in bed. in no apparent distress.
--- NOTE | 2018-09-02 19:24 | NUR ---
HAND-OFF: Report given to CAREY MATIAS.
--- NOTE | 2018-09-02 19:44 | NUR ---
NURSE NOTES: Received patient awake,alert,verbal,ambulates with a cane,no complaints.
[2018-09-02] MEDS: Miralax 17gm pkt ORAL SCH (20:15)
[2018-09-02] MEDS: Atorvastatin 20mg tab ORAL SCH (20:15)
[2018-09-02] MEDS: Simethicone 80mg tab ORAL PRN (20:16)
[2018-09-03 00:10] VITALS: BP 156/82
[2018-09-03 04:00] VITALS: BP 158/82
[2018-09-03] MEDS: Simethicone 80mg tab ORAL PRN ×3 (05:40→15:57)
[2018-09-03 06:13] LABS: BASOPHILS % (AUTO) 1.8 % (0.0-2.0); EOSINOPHILS % (AUTO) 3.2 % (0.0-3.0); HEMATOCRIT 27.9 % (37.0-47.0); MEAN CORPUSCULAR VOLUME 88 FL (80-99); MONOCYTES % (AUTO) 12.1 % (1.0-10.0); NEUTROPHILS % (AUTO) 39.9 % (45.0-75.0); PLATELET COUNT 183 K/UL (150-450); RED BLOOD COUNT 3.18 M/UL (4.20-5.40); RED CELL DISTRIBUTION WIDTH 11.9 % (11.6-14.8); WHITE BLOOD COUNT 4.1 K/UL (4.8-10.8)
[2018-09-03 06:36] LABS: ANION GAP 4 mmol/L (5-15); BLOOD UREA NITROGEN 29 mg/dL (7-18); CALCIUM 8.7 MG/DL (8.5-10.1); CARBON DIOXIDE 28 MMOL/L (21-32); CHLORIDE 105 MMOL/L (98-107); CREATININE 1.6 MG/DL (0.55-1.30); POTASSIUM 5.3 MMOL/L (3.5-5.1); SODIUM 137 MMOL/L (136-145)
--- NOTE | 2018-09-03 07:26 | NUR ---
HAND-OFF: Written Report given to Katerin Dean RN .
--- NOTE | 2018-09-03 07:49 | NUR ---
NURSE NOTES: AWAKE/ALERT.NO C/O PAIN. IN NO DISTRESS.
[2018-09-03 08:00] VITALS: BP 148/76
[2018-09-03] MEDS: Docusate 100mg cap ORAL SCH ×3 (08:40→17:29)
[2018-09-03] MEDS: Aspirin EC 81mg tab ORAL SCH (08:40)
[2018-09-03] MEDS: Losartan 50mg tab ORAL SCH (08:40)
[2018-09-03] MEDS: Heparin 5000 units/ml inj SUBQ SCH ×2 (08:42→20:52)
--- NOTE | 2018-09-03 10:27 | NUR ---
NURSE NOTES: dr gregorio called re K 5.3. no further order.
[2018-09-03 12:00] VITALS: BP 138/53
--- NOTE | 2018-09-03 12:20 | GI Progress Note ---
Assessment/Plan Problems: (1) GERD (gastroesophageal reflux disease) ICD Codes: K21.9 - Gastro-esophageal reflux disease without esophagitis SNOMED: 770730650 (2) Gastroenteritis ICD Codes: K52.9 - Noninfective gastroenteritis and colitis, unspecified SNOMED: 07461198 (3) Anemia ICD Codes: D64.9 - Anemia, unspecified SNOMED: 806191135 (4) Constipation ICD Codes: K59.00 - Constipation, unspecified SNOMED: 46354425 (5) Dehydration ICD Codes: E86.0 - Dehydration SNOMED: 20931238 (6) Episode of generalized weakness ICD Codes: R53.1 - Weakness SNOMED: 94353304 Status: stable Status Narrative Discussed with Dr. Maurice Assessment/Plan Recent history of endoscopy and colonoscopy regular diet bowel regimen, Colace plus MiraLAX simethicone prn anemia work up OB stool r/o GI bleed monitor H&H, prn transfusions ppi fu labs okay for DC per GI standpoint The patient was seen and examined at bedside and all new and available data was reviewed in the patients chart. I agree with the above findings, impression and plan. (Patient seen earlier today. Signature stamp does not reflect patient encounter time.). - Dallin Maurice MD Subjective Subjective Patient had bowel movement Denies any abdominal pain Denies any syncope Denies any nausea vomiting Objective Last 24 Hour Vital Signs Date Time Temp Pulse Resp B/P (MAP) Pulse Ox O2 Delivery O2 Flow Rate FiO2 09/03/18 09:24 Room Air 09/03/18 08:40 148/76 09/03/18 08:00 98.3 80 19 148/76 (100) 99 09/03/18 04:00 97.7 89 18 158/82 (107) 98 09/03/18 00:10 98.7 89 18 156/82 (106) 97 09/02/18 20:41 Room Air 09/02/18 19:54 98.2 85 20 130/70 (90) 96 09/02/18 19:03 98.1 91 20 158/77 (104) 95 09/02/18 17:00 91 20 168/80 (109) 09/02/18 16:00 98.5 85 20 136/66 (89) 96 Intake and Output 09/02/18 09/03/18 18:59 06:59 Intake Total 352.5 ml 525 ml Output Total 600 ml Balance -247.5 ml 525 ml Intake Oral 240 ml IV Total 112.5 ml 525 ml Output Urine Total 600 ml # Voids 5 5 Laboratory Tests Test 09/03/18 05:05 White Blood Count 4.1 K/UL (4.8-10.8) L Red Blood Count 3.18 M/UL (4.20-5.40) L Hemoglobin 9.0 G/DL (12.0-16.0) L Hematocrit 27.9 % (37.0-47.0) L Mean Corpuscular Volume 88 FL (80-99) Mean Corpuscular Hemoglobin 28.2 PG (27.0-31.0) Mean Corpuscular Hemoglobin Concent 32.2 G/DL (32.0-36.0) Red Cell Distribution Width 11.9 % (11.6-14.8) Platelet Count 183 K/UL (150-450) Mean Platelet Volume 6.5 FL (6.5-10.1) Neutrophils (%) (Auto) 39.9 % (45.0-75.0) L Lymphocytes (%) (Auto) 43.0 % (20.0-45.0) Monocytes (%) (Auto) 12.1 % (1.0-10.0) H Eosinophils (%) (Auto) 3.2 % (0.0-3.0) H Basophils (%) (Auto) 1.8 % (0.0-2.0) Sodium Level 137 MMOL/L (136-145) Potassium Level 5.3 MMOL/L (3.5-5.1) H Chloride Level 105 MMOL/L (98-107) Carbon Dioxide Level 28 MMOL/L (21-32) Anion Gap 4 mmol/L (5-15) L Blood Urea Nitrogen 29 mg/dL (7-18) H Creatinine 1.6 MG/DL (0.55-1.30) H Estimat Glomerular Filtration Rate mL/min (>60) Glucose Level 80 MG/DL (74-106) Calcium Level 8.7 MG/DL (8.5-10.1) Height (Feet): 5 Height (Inches): 4.00 Weight (Pounds): 184 General Appearance: WD/WN, no apparent distress, alert Cardiovascular: normal rate Respiratory/Chest: normal breath sounds, no respiratory distress Abdominal Exam: normal bowel sounds, non tender, soft Extremities: normal range of motion, non-tender Urszula Acevedo NP Sep 03, 2018 12:20
--- NOTE | 2018-09-03 14:56 | Nephrology Progress Note ---
Assessment/Plan Problem List: (1) Acute on chronic renal failure Assessment: Serum creatinine is slightly higher today but no significant change. Urine output is not recorded. (2) HTN (hypertension) Assessment: Blood pressure is normal off blood pressure medications (3) SIADH (syndrome of inappropriate ADH production) Assessment: Resolved (4) Osteoarthritis (5) GERD (gastroesophageal reflux disease) Assessment: Causing nausea? (6) UTI (urinary tract infection) Assessment: off abxs Plan DC IVF Hold off on any blood pressure medications. Discussed with Dr Benson Follow BMP Subjective Subjective still nauseated Objective Objective Last 24 Hour Vital Signs Date Time Temp Pulse Resp B/P (MAP) Pulse Ox O2 Delivery O2 Flow Rate FiO2 09/03/18 12:00 100.1 87 18 138/53 (81) 97 09/03/18 09:24 Room Air 09/03/18 08:40 148/76 09/03/18 08:00 98.3 80 19 148/76 (100) 99 09/03/18 04:00 97.7 89 18 158/82 (107) 98 09/03/18 00:10 98.7 89 18 156/82 (106) 97 09/02/18 20:41 Room Air 09/02/18 19:54 98.2 85 20 130/70 (90) 96 09/02/18 19:03 98.1 91 20 158/77 (104) 95 09/02/18 17:00 91 20 168/80 (109) 09/02/18 16:00 98.5 85 20 136/66 (89) 96 Intake and Output 09/02/18 09/03/18 19:00 07:00 Intake Total 352.5 ml 600 ml Output Total 600 ml Balance -247.5 ml 600 ml Intake Oral 240 ml IV Total 112.5 ml 600 ml Output Urine Total 600 ml # Voids 5 5 Laboratory Tests 09/03/18 05:05: White Blood Count 4.1L, Red Blood Count 3.18L, Hemoglobin 9.0L, Hematocrit 27.9L , Mean Corpuscular Volume 88, Mean Corpuscular Hemoglobin 28.2, Mean Corpuscular Hemoglobin Concent 32.2, Red Cell Distribution Width 11.9, Platelet Count 183, Mean Platelet Volume 6.5, Neutrophils (%) (Auto) 39.9L, Lymphocytes ( %) (Auto) 43.0, Monocytes (%) (Auto) 12.1H, Eosinophils (%) (Auto) 3.2H, Basophils (%) (Auto) 1.8, Sodium Level 137, Potassium Level 5.3H, Chloride Level 105, Carbon Dioxide Level 28, Anion Gap 4L, Blood Urea Nitrogen 29H, Creatinine 1.6H, Estimat Glomerular Filtration Rate , Glucose Level 80, Calcium Level 8.7 Height (Feet): 5 Height (Inches): 4.00 Weight (Pounds): 184 Cardiovascular: normal rate Respiratory/Chest: lungs clear Extremities: trace edema Reynaldo Wang MD Sep 03, 2018 14:56
[2018-09-03 16:37] VITALS: BP 151/90
[2018-09-03] MEDS: Benzonatate 100mg Perles ORAL SCH (17:29)
--- NOTE | 2018-09-03 18:50 | NUR ---
NURSE NOTES: QUIET IN BED. NO APPARENT DISTRESS.
--- NOTE | 2018-09-03 18:52 | Internal Med Progress Note ---
Subjective Physician Name José Miguel Benson Attending Physician José Miguel Benson MD Current Medications Medications (Trade) Dose Ordered Sig/Amos Route PRN Reason Start Time Stop Time Status Last Admin Dose Admin Acetaminophen (Tylenol) 650 mg Q4H PRN ORAL Mild Pain (Pain Scale 1-3) 09/02/18 17:07 09/30/18 17:06 Aspirin (Ecotrin) 81 mg DAILY ORAL 09/03/18 09:00 10/01/18 08:59 09/03/18 08:40 Atorvastatin Calcium (Lipitor) 40 mg BEDTIME ORAL 09/02/18 21:00 09/30/18 20:59 09/02/18 20:15 Benzonatate (Tessalon Perles) 100 mg THREE TIMES A DAY ORAL 09/03/18 18:00 10/03/18 17:59 09/03/18 17:29 Ciprofloxacin (Cipro 250mg tab) 250 mg DAILY ORAL 09/03/18 09:00 09/08/18 11:59 09/03/18 08:40 Dextrose (Dextrose 50%) 25 ml Q30M PRN IV Hypoglycemia 09/02/18 17:30 09/30/18 17:29 Dextrose (Dextrose 50%) 50 ml Q30M PRN IV Hypoglycemia 09/02/18 17:30 09/30/18 17:29 Docusate Sodium (Colace) 100 mg THREE TIMES A DAY ORAL 09/02/18 18:00 10/01/18 12:59 09/03/18 17:29 Ergocalciferol (Drisdol) 50,000 intlu ONCE A WEEK ORAL 09/04/18 09:00 10/04/18 08:59 Heparin Sodium (Porcine) (Heparin 5000 units/ml) 5,000 units EVERY 12 HOURS SUBQ 09/02/18 21:00 09/30/18 20:59 09/03/18 08:42 Losartan Potassium (Cozaar) 100 mg DAILY ORAL 09/03/18 09:00 10/01/18 08:59 09/03/18 08:40 Ondansetron HCl (Zofran) 4 mg Q6H PRN IVP Nausea & Vomiting 09/02/18 17:08 10/02/18 17:07 Pantoprazole (Protonix) 40 mg DAILY ORAL 09/03/18 09:00 10/02/18 10:59 09/03/18 08:38 Polyethylene Glycol (Miralax) 17 gm BEDTIME ORAL 09/02/18 21:00 10/01/18 20:59 09/02/18 20:15 Simethicone (Mylicon) 80 mg QIDPRN PRN ORAL GAS PAIN 09/02/18 17:09 10/02/18 17:08 09/03/18 15:57 Sodium Chloride 1,000 ml @ 75 mls/hr [id number] IV 09/02/18 17:07 10/02/18 17:06 09/02/18 17:23 Allergies: Coded Allergies: PENICILLINS (Verified Allergy, Unknown, 06/24/18) Subjective abd bloating had a BM today SBP in 150s feels better Cr down 1.6 12 pt ROS neg except above positives Objective Last Vital Signs Date Time Temp Pulse Resp B/P (MAP) Pulse Ox O2 Delivery O2 Flow Rate FiO2 09/03/18 16:37 98.8 78 20 151/90 (110) 99 09/03/18 09:24 Room Air General Appearance: no apparent distress, alert EENT: PERRL/EOMI, normal ENT inspection Neck: normal alignment, supple Cardiovascular: normal rate, regular rhythm Respiratory/Chest: lungs clear, normal breath sounds, no respiratory distress Abdomen: non tender, soft, no organomegaly Neurologic: alert, oriented x 3 Laboratory Tests Test 09/03/18 05:05 White Blood Count 4.1 K/UL (4.8-10.8) L Red Blood Count 3.18 M/UL (4.20-5.40) L Hemoglobin 9.0 G/DL (12.0-16.0) L Hematocrit 27.9 % (37.0-47.0) L Mean Corpuscular Volume 88 FL (80-99) Mean Corpuscular Hemoglobin 28.2 PG (27.0-31.0) Mean Corpuscular Hemoglobin Concent 32.2 G/DL (32.0-36.0) Red Cell Distribution Width 11.9 % (11.6-14.8) Platelet Count 183 K/UL (150-450) Mean Platelet Volume 6.5 FL (6.5-10.1) Neutrophils (%) (Auto) 39.9 % (45.0-75.0) L Lymphocytes (%) (Auto) 43.0 % (20.0-45.0) Monocytes (%) (Auto) 12.1 % (1.0-10.0) H Eosinophils (%) (Auto) 3.2 % (0.0-3.0) H Basophils (%) (Auto) 1.8 % (0.0-2.0) Sodium Level 137 MMOL/L (136-145) Potassium Level 5.3 MMOL/L (3.5-5.1) H Chloride Level 105 MMOL/L (98-107) Carbon Dioxide Level 28 MMOL/L (21-32) Anion Gap 4 mmol/L (5-15) L Blood Urea Nitrogen 29 mg/dL (7-18) H Creatinine 1.6 MG/DL (0.55-1.30) H Estimat Glomerular Filtration Rate mL/min (>60) Glucose Level 80 MG/DL (74-106) Calcium Level 8.7 MG/DL (8.5-10.1) Intake and Output 09/02/18 09/03/18 19:00 07:00 Intake Total 352.5 ml 600 ml Output Total 600 ml Balance -247.5 ml 600 ml Intake Oral 240 ml IV Total 112.5 ml 600 ml Output Urine Total 600 ml # Voids 5 5 Assessment/Plan Assessment/Plan ASSESSMENT: 1. Near syncope - likely orthostatic hypotension (tachycardia and dizziness when standing; she is on fluid restriction bc of SIADH) 2. SIADH 3. Weakness, likely secondary to dehydration. 4. Hypertension ----> Hypotension 5. GUILLERMO on CKD - possibly ATN - resolving 6. Burping and abd cramps PLAN: 1. medsurg 2. IV fluids 3. Continue losartan 100mg qd;start amlodipine 5mg PO Q day 4. Renal consult for SIADH 5. GI consult for burping and abdominal cramps 6. bowel regimen, Colace plus MiraLAX 7. simethicone prn 8. anemia work up 9. DC home tomorrow José Miguel Benson MD Sep 03, 2018 18:51
--- NOTE | 2018-09-03 19:15 | NUR ---
NURSE NOTES: Report received from POLLY Conklin. Patient is in stable condition lying comfortably in bed. Bed is in lowest position, brakes engaged, side rails up x3 with call light within reach. Will continue to monitor.
--- NOTE | 2018-09-03 19:15 | NUR ---
HAND-OFF: Report given to YIMI MATIAS.
[2018-09-03 20:00] VITALS: BP 155/75
[2018-09-03] MEDS: Atorvastatin 20mg tab ORAL SCH (20:41)
[2018-09-03] MEDS: Miralax 17gm pkt ORAL SCH (20:52)
[2018-09-03 21:21] LABS: APPEARANCE,URINE CLEAR; BILIRUBIN, URINE NEGATIVE (NEGATIVE); COLOR,URINE PALE YELLOW; GLUCOSE, URINE (UA) NEGATIVE (NEGATIVE); KETONES,URINE NEGATIVE (NEGATIVE); LEUKOCYTE ESTERASE ,URINE NEGATIVE (NEGATIVE); NITRITE,URINE NEGATIVE (NEGATIVE); PH,URINE 5 (4.5-8.0); PROTEIN,URINE NEGATIVE (NEGATIVE); UROBILINOGEN,URINE NORMAL MG/DL (0.0-1.0)
[2018-09-04] VITALS: BP 177/82
[2018-09-04] MEDS: Simethicone 80mg tab ORAL PRN (01:37)
[2018-09-04 04:00] VITALS: BP 171/80
--- NOTE | 2018-09-04 06:35 | NUR ---
NURSE NOTES: MD notified of BP readings. MD ordered no vital signs until 8am.
--- NOTE | 2018-09-04 07:15 | NUR ---
HAND-OFF: Report given to POLLY Conklin. Plan of care endorsed.
--- NOTE | 2018-09-04 07:33 | NUR ---
NURSE NOTES: AWAKE/ALERT, NO C/O PAIN. IN NO DISTRESS.
[2018-09-04 08:03] VITALS: BP 186/88
--- NOTE | 2018-09-04 08:06 | NUR ---
NURSE NOTES: REFUSED KUB. STATES NO MORE C/O ABDOMINAL PAIN.
[2018-09-04] MEDS: Losartan 50mg tab ORAL SCH (08:35)
[2018-09-04] MEDS: Benzonatate 100mg Perles ORAL SCH ×2 (08:35→12:31)
[2018-09-04] MEDS: Aspirin EC 81mg tab ORAL SCH (08:35)
[2018-09-04] MEDS: Docusate 100mg cap ORAL SCH ×2 (08:35→12:31)
[2018-09-04] MEDS: Heparin 5000 units/ml inj SUBQ SCH (08:39)
[2018-09-04] MEDS ORDERED: Vitamin D 50,000 units cap ORAL SCH ×2 (09:00)
[2018-09-04] MEDS ORDERED: SIMETHICONE80 MG ORAL (10:49)
--- NOTE | 2018-09-04 10:50 | Discharge Instructions ---
Discharge Instructions Discharge Instructions Follow up with: PCP in 1 wk Call MD/Return to Hospital if: worsening symptoms Activity: resume normal activities Follow Up Orders DO NOT TAKE DEMECYCLINE NEEDS TO CHECK BP 3 x DAY AND KEEP LOG FOR DOCTOR For Congestive Heart Failure Reminder Report to your physician any weight gain of 5 pounds or more in one week. José Miguel Benson MD Sep 04, 2018 10:50
[2018-09-04 11:17] LABS: ANION GAP 8 mmol/L (5-15); BLOOD UREA NITROGEN 23 mg/dL (7-18); CALCIUM 8.9 MG/DL (8.5-10.1); CARBON DIOXIDE 28 MMOL/L (21-32); CHLORIDE 101 MMOL/L (98-107); CREATININE 1.3 MG/DL (0.55-1.30); POTASSIUM 4.5 MMOL/L (3.5-5.1); SODIUM 137 MMOL/L (136-145)
[2018-09-04 12:00] VITALS: BP 171/87
--- NOTE | 2018-09-04 12:06 | NUR ---
CASE MANAGEMENT:REVIEW 09/04/2018 SI: NEAR SYNCOPE. SAIDH. CKD BURPING AD CRAMPS T 97.2 HR 82 RR 19 B/P 186/88 SATS 96% ON RA BUN 23 IS: PROTONIX PO QD CIPRO PO QD IVF @ 75 mL/HR ASA PO QD COZAAR PO QD HEPARIN SUBQ Q12H : MED/SURG STATUS PLAN: ABD XRAY
--- NOTE | 2018-09-04 13:52 | Discharge Summary ---
Discharge Summary Hospital Course Date of Admission Aug 31, 2018 at 16:40 Date of Discharge Admitting Diagnosis near syncope, uti HPI Leeanna Sanchez is a 77 year old female who was admitted on Aug 31, 2018 at 16:40 for Near Syncope and UTI. She was found to have orthostatic near syncope. Her Bp medications were lowered and she was rehydrated. Her Cr initially increased then with IVF resolved. Her hydralazine was held because of concern for episodes of orthostatic syncope. Her amlodipine was restarted at 10mg PO q day. Discharge Medications New Medications: Simethicone* (Simethicone*) 80 Mg Tab.chew 80 MG ORAL QIDPRN PRN for 30 Days, #30 TAB Continued Medications: Amlodipine Besylate (Norvasc) 10 Mg Tablet 10 MG ORAL DAILY, #30 TAB Aspirin Ec* (Aspirin Ec*) 81 Mg Tablet.dr 81 MG ORAL DAILY, TAB Atorvastatin Calcium* (Atorvastatin Calcium*) 40 Mg Tablet 40 MG ORAL BEDTIME, #30 TAB Benzonatate* (Benzonatate*) 200 Mg Capsule 200 MG ORAL THREE TIMES A DAY, PERLE (This prescription has been renewed) Calcium Carbonate (Calcium Carbonate) 200 Mg Tab.chew 200 MG PO, TAB (This prescription has been renewed) Ergocalciferol (Vitamin D2)* (Vitamin D*) 50,000 Unit Capsule 24629 UNIT ORAL ONCE A WEEK, CAP (This prescription has been renewed) Losartan Potassium (Losartan Potassium) 100 Mg Tablet 100 MG ORAL DAILY, TAB (This prescription has been renewed) Omeprazole (Omeprazole) 20 Mg Capsule.dr 20 MG ORAL DAILY, CAP Rosuvastatin Calcium (Crestor) 5 Mg Tablet 10 MG ORAL DAILY, TAB (This prescription has been renewed) Discharge Condition Upon Discharge: stable Discharge Disposition Patient was discharged to HOME Discharge Instructions Discharge Instructions Follow up with: PCP in 1 wk Call MD/Return to Hospital if: worsening symptoms Activity: resume normal activities José Miguel Benson MD Sep 04, 2018 13:52
--- NOTE | 2018-09-04 15:17 | Nephrology Progress Note ---
Assessment/Plan Problem List: (1) Acute on chronic renal failure Assessment: Serum creatinine is slightly higher today but no significant change. Urine output is not recorded. (2) HTN (hypertension) Assessment: Blood pressure is normal off blood pressure medications (3) SIADH (syndrome of inappropriate ADH production) Assessment: Resolved (4) Osteoarthritis (5) GERD (gastroesophageal reflux disease) Assessment: Causing nausea? (6) UTI (urinary tract infection) Assessment: off abxs Plan discussed with dr Benson Increase Amlodipine to 10 mg daily Dc today Subjective Subjective all noted Objective Objective Last 24 Hour Vital Signs Date Time Temp Pulse Resp B/P (MAP) Pulse Ox O2 Delivery O2 Flow Rate FiO2 09/04/18 12:00 97.9 81 17 171/87 (115) 97 09/04/18 09:12 Room Air 09/04/18 08:36 82 186/88 09/04/18 08:35 186/88 09/04/18 08:03 97.2 82 19 186/88 (120) 96 09/04/18 04:00 98.5 80 18 171/80 (110) 98 09/04/18 00:00 98.6 83 20 177/82 (113) 99 09/03/18 21:00 Room Air 09/03/18 20:44 85 155/75 09/03/18 20:00 99.5 83 20 155/75 (101) 98 09/03/18 16:37 98.8 78 20 151/90 (110) 99 Intake and Output 09/03/18 09/04/18 18:59 06:59 Intake Total 1050 ml Balance 1050 ml Intake Oral 300 ml IV Total 750 ml # Voids 5 5 Laboratory Tests 09/03/18 21:00: Urine Color Pale yellow, Urine Appearance Clear, Urine pH 5, Urine Specific [place] 1.010, Urine Protein Negative, Urine Glucose (UA) Negative, Urine Ketones Negative, Urine Blood Negative, Urine Nitrite Negative, Urine Bilirubin Negative, Urine Urobilinogen Normal, Urine Leukocyte Esterase Negative 09/04/18 11:00: Sodium Level 137, Potassium Level 4.5, Chloride Level 101, Carbon Dioxide Level 28, Anion Gap 8, Blood Urea Nitrogen 23H, Creatinine 1.3, Estimat Glomerular Filtration Rate , Glucose Level 95, Calcium Level 8.9 Height (Feet): 5 Height (Inches): 4.00 Weight (Pounds): 184 Cardiovascular: normal rate Respiratory/Chest: lungs clear Reynaldo Wang MD Sep 04, 2018 15:17
[2018-09-04 16:00] VITALS: BP 155/73
--- NOTE | 2018-09-04 16:16 | NUR ---
NURSE NOTES: DISCHARGED HOME PER WHEELCHAIR ACCPD BY SON IN STABLE CONDITION. DC INSTRUCTIONS GIVEN
== END 2018-09-04 16:10 | disposition home or self-care (01) | DRG 312 ==
LOC: EDBD 14:31 → EMR 14:36 → 2E 16:40 → EDBEDREQ 17:08 → 2E 18:00 → 3E 09-02 16:46
DX: I95.1 Orthostatic hypotension (principal); E22.2 Syndrome of inappropriate secretion of antidiuretic hormone; N39.0 Urinary tract infection, site not specified; N17.9 Acute kidney failure, unspecified; E78.5 Hyperlipidemia, unspecified; I12.9 Hypertensive chronic kidney disease with stage 1 through stage 4 chronic kidney disease, or unspecified chronic kidney disease; N18.9 Chronic kidney disease, unspecified; K21.9 Gastro-esophageal reflux disease without esophagitis; K52.9 Noninfective gastroenteritis and colitis, unspecified; K59.00 Constipation, unspecified; E86.0 Dehydration; M19.90 Unspecified osteoarthritis, unspecified site
CPT/HCPCS: 36415; 80048; 80053; 81001; 81003; 82378; 82607; 82728; 82746; 83540; 83550; 83690; 83880; 84300; 84443; 84484; 85025; 85044; 85610; 85730; 87086; 93005; 99285; J2405

== ENCOUNTER 2018-09-10 03:48 | Emergency (ER) | payer MEDICARE ==
[~2018-09-10] VITALS: Ht 167.6 cm; Wt 83.9 kg
[~2018-09-10 03:48] MED LIST changes: +SIMETHICONE80 MG ORAL; +[UNRECOGNIZED DRUG - OTHER]
--- NOTE | 2018-09-10 04:10 | Emergency Room Report ---
History of Present Illness General Chief Complaint: Syncope Source: Patient Present Illness HPI Patient presents with complaints of lightheaded sensation Reports that one time previously when she had similar feeling her sodium was low patient also has a bottle of amlodipine with her reporting that this is a new medication for her Patient feels her symptoms are worsened with standing Denies any chest pain denies any vomiting or diarrhea The triage note reports syncope however patient denies any lapse of consciousness Denies any focal weakness Allergies: Coded Allergies: PENICILLINS (Verified Allergy, Unknown, 09/10/18) Patient History Past Medical History: see triage record Pertinent Family History: none Reviewed Nursing Documentation: PMH: Agreed; PSxH: Agreed Nursing Documentation-PMH Hx Cardiac Problems: Yes - high cholesterol,arthritis Hx Hypertension: Yes Hx Cancer: No Hx Gastrointestinal Problems: No Hx Neurological Problems: No Review of Systems All Other Systems: negative except mentioned in HPI Physical Exam Vital Signs Date Time Temp Pulse Resp B/P (MAP) Pulse Ox O2 Delivery O2 Flow Rate FiO2 09/10/18 03:50 98.2 96 14 177/72 97 Room Air Sp02 EP Interpretation: reviewed, normal General Appearance: well appearing, no apparent distress Head: normocephalic, atraumatic Eyes: bilateral eye PERRL, bilateral eye EOMI ENT: hearing grossly normal, normal pharynx, TMs + canals normal, uvula midline Neck: full range of motion, supple, no meningismus, no bony tend Respiratory: lungs clear, normal breath sounds, no rhonchi, no respiratory distress, no retraction, no accessory muscle use Cardiovascular #1: normal peripheral pulses, regular rate, rhythm, no edema, no gallop, no JVD, no murmur Gastrointestinal: normal bowel sounds, non tender, soft, no mass, no organomegaly, non-distended, no guarding, no hernia, no pulsatile mass, no rebound Genitourinary: no CVA tenderness Musculoskeletal: normal inspection Neurologic: oriented x3, responsive, hospice superintendent III-XII nml as tested, motor strength/ tone normal, sensory intact Psychiatric: mood/affect normal Skin: normal color, no rash, warm/dry, palpation normal Lymphatic: normal inspection, no adenopathy Medical Decision Making Diagnostic Impression: Primary Impression: Episode of generalized weakness ER Course Patient is a fairly complex patient with multiple differential to consideration including but not limited to cardiac cardiopulmonary and vascular emergencies Patient appears to describe some orthostatic-type findings however on presentation here has remained appropriate blood pressure remains appropriate Patient was hydrated total CK come back mildly elevated patient has had previous elevation Electrolytes were rechecked as the patient has had fairly significantly low sodium levels in the past today's examination reveals normal levels patient remains hemodynamic stable she has just had a recent extensive hospitalization and is otherwise stable for close follow-up Labs Test 09/10/18 04:15 White Blood Count 5.0 K/UL (4.8-10.8) Red Blood Count 3.73 M/UL (4.20-5.40) Hemoglobin 10.4 G/DL (12.0-16.0) Hematocrit 32.5 % (37.0-47.0) Mean Corpuscular Volume 87 FL (80-99) Mean Corpuscular Hemoglobin 27.9 PG (27.0-31.0) Mean Corpuscular Hemoglobin Concent 32.1 G/DL (32.0-36.0) Red Cell Distribution Width 12.6 % (11.6-14.8) Platelet Count 223 K/UL (150-450) Mean Platelet Volume 6.6 FL (6.5-10.1) Neutrophils (%) (Auto) 56.3 % (45.0-75.0) Lymphocytes (%) (Auto) 29.1 % (20.0-45.0) Monocytes (%) (Auto) 11.0 % (1.0-10.0) Eosinophils (%) (Auto) 2.1 % (0.0-3.0) Basophils (%) (Auto) 1.5 % (0.0-2.0) Urine Color Pale yellow Urine Appearance Clear Urine pH 6.5 (4.5-8.0) Urine Specific [place] 1.010 (1.005-1.035) Urine Protein 1+ (NEGATIVE) Urine Glucose (UA) Negative (NEGATIVE) Urine Ketones Negative (NEGATIVE) Urine Blood 1+ (NEGATIVE) Urine Nitrite Negative (NEGATIVE) Urine Bilirubin Negative (NEGATIVE) Urine Urobilinogen Normal MG/DL (0.0-1.0) Urine Leukocyte Esterase 1+ (NEGATIVE) Urine RBC 2-4 /HPF (0 - 2) Urine WBC 2-4 /HPF (0 - 2) Urine Squamous Epithelial Cells Few /LPF (NONE/OCC) Urine Bacteria Few /HPF (NONE) Sodium Level 140 MMOL/L (136-145) Potassium Level 4.6 MMOL/L (3.5-5.1) Chloride Level 103 MMOL/L (98-107) Carbon Dioxide Level 29 MMOL/L (21-32) Anion Gap 9 mmol/L (5-15) Blood Urea Nitrogen 32 mg/dL (7-18) Creatinine 1.3 MG/DL (0.55-1.30) Estimat Glomerular Filtration Rate mL/min (>60) Glucose Level 93 MG/DL (74-106) Calcium Level 8.6 MG/DL (8.5-10.1) Total Bilirubin 0.3 MG/DL (0.2-1.0) Aspartate Amino Transf (AST/SGOT) 44 U/L (15-37) Alanine Aminotransferase (ALT/SGPT) 31 U/L (12-78) Alkaline Phosphatase 81 U/L (46-116) Total Creatine Kinase 994 U/L (26-308) Creatine Kinase MB 4.2 NG/ML (0.0-3.6) Creatine Kinase MB Relative Index 0.4 Troponin I 0.000 ng/mL (0.000-0.056) Total Protein 7.2 G/DL (6.4-8.2) Albumin 3.3 G/DL (3.4-5.0) Globulin 3.9 g/dL Albumin/Globulin Ratio 0.8 (1.0-2.7) EKG Diagnostic Results Rate: normal Rhythm: NSR ST Segments: other - Nonspecific ST T-wave changes Rhythm Strip Diag. Results EP Interpretation: yes Rate: 77 Rhythm: NSR, no PVC's, no ectopy Chest X-Ray Diagnostic Results Chest X-Ray Diagnostic Results : Chest X-Ray Ordered: Yes # of Views/Limited/Complete: 1 View Indication: Chest Pain EP Interpretation: Yes Interpretation: no consolidation, no effusion, no pneumothorax Impression: No acute disease Electronically Signed by: Fallon Barcenas DO Last Vital Signs Date Time Temp Pulse Resp B/P (MAP) Pulse Ox O2 Delivery O2 Flow Rate FiO2 09/10/18 03:50 98.2 96 14 177/72 97 Room Air Status: improved Disposition: HOME, SELF-CARE Condition: Improved Additional Instructions: Patient is provided with the discharge instructions notified to follow up with primary doctor in the next 2-3 days otherwise return to the er with any worsening symptoms. Please note that this report is being documented using DRAGON technology. This can lead to erroneous entry secondary to incorrect interpretation by the dictating instrument. Fallon Barcenas DO Sep 10, 2018 04:10
[2018-09-10 04:30] VITALS: BP 177/72
--- NOTE | 2018-09-10 04:30 | NUR ---
ER Nurse Note: Pt came from home c/o light headness at 0130. Pt stated she got up to use the restroom and felt light headed. Pt denies head trauma, pain, and fall. Pt was recently discharged from [facility] for same symptom. Pt a&ox4, VSS, no signs of distress. Pt is taking a new medication for BP. ERMD at pt side; will continue to [facility].
[2018-09-10 04:42] LABS: APPEARANCE,URINE CLEAR; BASOPHILS % (AUTO) 1.5 % (0.0-2.0); BILIRUBIN, URINE NEGATIVE (NEGATIVE); COLOR,URINE PALE YELLOW; EOSINOPHILS % (AUTO) 2.1 % (0.0-3.0); GLUCOSE, URINE (UA) NEGATIVE (NEGATIVE); HEMATOCRIT 32.5 % (37.0-47.0); HEMOGLOBIN 10.4 G/DL (12.0-16.0); KETONES,URINE NEGATIVE (NEGATIVE); LEUKOCYTE ESTERASE ,URINE 1+ (NEGATIVE); LYMPHOCYTES % (AUTO) 29.1 % (20.0-45.0); MEAN CORPUSCULAR VOLUME 87 FL (80-99); NEUTROPHILS % (AUTO) 56.3 % (45.0-75.0); NITRITE,URINE NEGATIVE (NEGATIVE); PH,URINE 6.5 (4.5-8.0); PLATELET COUNT 223 K/UL (150-450); PROTEIN,URINE 1+ (NEGATIVE); RED BLOOD COUNT 3.73 M/UL (4.20-5.40); RED CELL DISTRIBUTION WIDTH 12.6 % (11.6-14.8); UROBILINOGEN,URINE NORMAL MG/DL (0.0-1.0)
[2018-09-10 04:55] LABS: ANION GAP 9 mmol/L (5-15); BLOOD UREA NITROGEN 32 mg/dL (7-18); CALCIUM 8.6 MG/DL (8.5-10.1); CARBON DIOXIDE 29 MMOL/L (21-32); CHLORIDE 103 MMOL/L (98-107); CREATININE 1.3 MG/DL (0.55-1.30); POTASSIUM 4.6 MMOL/L (3.5-5.1); SODIUM 140 MMOL/L (136-145)
[2018-09-10 05:08] LABS: ALANINE AMINOTRANSFERASE 31 U/L (12-78); ALBUMIN 3.3 G/DL (3.4-5.0); ALBUMIN/GLOBULIN RATIO 0.8 (1.0-2.7); ALKALINE PHOSPHATASE 81 U/L (46-116); ASPARTATE AMINO TRANSFERASE 44 U/L (15-37); BILIRUBIN,TOTAL 0.3 MG/DL (0.2-1.0); CKMB 4.2 NG/ML (0.0-3.6); CREATINE KINASE 994 U/L (26-308)
--- NOTE | 2018-09-10 07:00 | NUR ---
ER Nurse Note: Report given to POLLY Johnson.
[2018-09-10 08:11] VITALS: BP 153/76
--- NOTE | 2018-09-10 08:20 | NUR ---
ED Nurse Note:pt. is A/Ox4 ambulatory with [place] ,ate 2 sandwiches, VSS, ready for d/c home wating for her ride
[2018-09-10 08:21] VITALS: BP 153/76
--- NOTE | 2018-09-10 09:00 | NUR ---
ER DISCHARGE NOTE: Patient is cleared to be discharged per ERMD, pt is aox4, on room air, with stable vital signs. pt was given dc and instructions, pt was able to verbalize understanding, pt id band and iv site removed without complications. pt is able to ambulate with cane. pt took all belongings.picked up by family member
--- NOTE | 2018-09-10 11:19 | Diagnostic Imaging Report ---
Indication: Chest pain Technique: One view of the chest Comparison: 12/10/2015 Findings: The heart is borderline enlarged. The lungs and pleural spaces are clear. No significant interim change Impression: No acute process
--- NOTE | 2018-09-10 17:25 | Cardiology Report ---
APPROVED REPORT EKG Measurement Heart [id number] Normal sinus rhythm Possible Left atrial enlargement Septal infarct, age undetermined Abnormal ECG
== END 2018-09-10 09:30 | disposition home or self-care (01) ==
LOC: EDBD 03:48 → EMR 04:01
DX: R53.1 Weakness (principal); I10 Essential (primary) hypertension; Z88.0 Allergy status to penicillin
CPT/HCPCS: 36415; 71045; 80053; 80307; 81003; 82550; 82553; 84484; 85025; 93005; 99284

== ENCOUNTER 2018-09-21 03:21 | Emergency (ER) | payer MEDICARE ==
[~2018-09-21] VITALS: Ht 162.6 cm; Wt 83.0 kg
--- NOTE | 2018-09-21 03:29 | NUR ---
ED Nurse Note: PT CAME TO ED VIA RA 894 FROM HOME C/O OF DIZZINESS. PER PT SHE WAS GETTING UP TO USE THE RESTROOM AND FELT DIZZY. PT HAS HISTORY OF HTN AND SHE STATES SHE TOOK HER MEDICATIOM THIS MORNING.
[2018-09-21 03:31] VITALS: BP 181/83
--- NOTE | 2018-09-21 03:36 | Emergency Room Report ---
History of Present Illness General Chief Complaint: Dizziness Source: Patient Present Illness HPI Is is a 77-year-old female with a history of hypertension. She presents with chief complaint of lightheadedness and dizziness. This occurred tonight. She has several episode like this before. She said that she started on new blood pressure medication recently. She took it in the morning. Tonight she got up to go the bathroom and felt lightheaded. No syncopal episode. She sat down and called 911. Denies any chest pain. Denies any focal deficit. Denies any headache. Better now. Allergies: Coded Allergies: PENICILLINS (Verified Allergy, Unknown, 09/10/18) Patient History Past Medical History: see triage record, old chart reviewed, HTN Past Surgical History: other Pertinent Family History: none Social History: Denies: smoking Now: No Immunizations: other Reviewed Nursing Documentation: PMH: Agreed; PSxH: Agreed Nursing Documentation-PMH Past Medical History: No History, Except For Hx Cardiac Problems: Yes - high cholesterol,arthritis Hx Hypertension: Yes Hx Cancer: No Hx Gastrointestinal Problems: No Hx Neurological Problems: No Review of Systems Eye: Denies: eye pain, blurred vision ENT: Denies: ear pain, nose congestion, throat swelling Respiratory: Denies: cough, shortness of breath Cardiovascular: Denies: chest pain, palpitations Gastrointestinal: Denies: abdominal pain, diarrhea, nausea, vomiting Musculoskeletal: Denies: back pain, joint pain Skin: Denies: rash Neurological: Denies: headache, numbness Endocrine: Denies: increased thirst, increased urine Hematologic/Lymphatic: Denies: easy bruising All Other Systems: negative except mentioned in HPI Physical Exam Vital Signs Date Time Temp Pulse Resp B/P (MAP) Pulse Ox O2 Delivery O2 Flow Rate FiO2 09/21/18 03:22 98.1 96 16 181/83 95 Room Air vitals with high blood pressure Sp02 EP Interpretation: reviewed, normal General Appearance: well appearing, no apparent distress, alert Head: normocephalic, atraumatic Eyes: bilateral eye PERRL, bilateral eye EOMI ENT: hearing grossly normal, normal pharynx Neck: full range of motion, supple, no meningismus Respiratory: chest non-tender, lungs clear, normal breath sounds Cardiovascular #1: regular rate, rhythm, no murmur Gastrointestinal: normal bowel sounds, non tender, no mass, no organomegaly, no bruit, non-distended Musculoskeletal: back normal, gait/station normal, normal range of motion Psychiatric: mood/affect normal Skin: warm/dry Medical Decision Making Diagnostic Impression: Primary Impression: Dizziness of unknown cause Additional Impressions: HTN (hypertension) Qualified Codes: I10 - Essential (primary) hypertension Prerenal azotemia Anemia Qualified Codes: D64.9 - Anemia, unspecified ER Course Patient presents with weakness and dizziness. No evidence of TIA or CVA. No evidence of ACS. She felt better now. This may be orthostatic in nature. Blood pressure improved. She's eating drinking now. She does have some evidence of prerenal azotemia. IV fluid given. Lab Results Impression labs unremarkable EKG Diagnostic Results Rate: normal Rhythm: NSR ST Segments: no acute changes Rhythm Strip Diag. Results EP Interpretation: yes Rate: 75 Rhythm: NSR, no PVC's Last Vital Signs Date Time Temp Pulse Resp B/P (MAP) Pulse Ox O2 Delivery O2 Flow Rate FiO2 09/21/18 03:31 98.1 96 16 181/83 95 Room Air Status: improved Disposition: HOME, SELF-CARE Condition: Stable Patient Instructions: Dizziness Additional Instructions: Follow-up with your Dr. in 3-5 days if not better. Return if worse. Kj Acevedo MD Sep 21, 2018 03:36
[2018-09-21 04:05] LABS: BASOPHILS % (AUTO) 1.1 % (0.0-2.0); EOSINOPHILS % (AUTO) 1.9 % (0.0-3.0); HEMATOCRIT 33.9 % (37.0-47.0); LYMPHOCYTES % (AUTO) 35.4 % (20.0-45.0); MEAN CORPUSCULAR VOLUME 86 FL (80-99); MONOCYTES % (AUTO) 9.1 % (1.0-10.0); NEUTROPHILS % (AUTO) 52.5 % (45.0-75.0); PLATELET COUNT 252 K/UL (150-450); RED BLOOD COUNT 3.93 M/UL (4.20-5.40); RED CELL DISTRIBUTION WIDTH 12.1 % (11.6-14.8); WHITE BLOOD COUNT 5.4 K/UL (4.8-10.8)
[2018-09-21 04:13] LABS: APPEARANCE,URINE CLEAR; BILIRUBIN, URINE NEGATIVE (NEGATIVE); COLOR,URINE PALE YELLOW; GLUCOSE, URINE (UA) NEGATIVE (NEGATIVE); KETONES,URINE NEGATIVE (NEGATIVE); LEUKOCYTE ESTERASE ,URINE NEGATIVE (NEGATIVE); NITRITE,URINE NEGATIVE (NEGATIVE); PH,URINE 6 (4.5-8.0); PROTEIN,URINE 2+ (NEGATIVE); UROBILINOGEN,URINE NORMAL MG/DL (0.0-1.0)
[2018-09-21 04:17] LABS: ANION GAP 8 mmol/L (5-15); BLOOD UREA NITROGEN 31 mg/dL (7-18); CALCIUM 9.1 MG/DL (8.5-10.1); CARBON DIOXIDE 29 MMOL/L (21-32); CHLORIDE 104 MMOL/L (98-107); CREATININE 1.2 MG/DL (0.55-1.30); POTASSIUM 4.6 MMOL/L (3.5-5.1); SODIUM 141 MMOL/L (136-145)
--- NOTE | 2018-09-21 05:00 | NUR ---
ER DISCHARGE NOTE: Patient is cleared to be discharged per ERMD, pt is aox4, on room air, with stable vital signs. pt was given dc and prescription instructions, pt was able to verbalize understanding, pt id band and iv site removed without complications. pt is able to ambulate with steady gait. pt took all belongings.ED Nurse Note:
[2018-09-21 05:11] VITALS: BP 140/101
--- NOTE | 2018-09-24 15:46 | Cardiology Report ---
APPROVED REPORT EKG Measurement Heart [id number] Normal sinus rhythm Cannot rule out Anteroseptal infarct, age undetermined Abnormal ECG
[2018-10-22] MEDS ORDERED: MACROBID100 MG ORAL (23:10)
== END 2018-09-21 05:00 | disposition home or self-care (01) ==
LOC: EDBD 03:21 → EDUNIT# 03:21 → EMR 03:41
DX: R42 Dizziness and giddiness (principal); I10 Essential (primary) hypertension; D64.9 Anemia, unspecified; R79.89 Other specified abnormal findings of blood chemistry; Z88.0 Allergy status to penicillin; E78.00 Pure hypercholesterolemia, unspecified; M19.90 Unspecified osteoarthritis, unspecified site
CPT/HCPCS: 36415; 80048; 81001; 84484; 85025; 93005; 96360; 99284

== ENCOUNTER 2018-10-02 04:38 | Inpatient (IN) | payer MEDICARE ==
[~2018-10-02] VITALS: Ht 162.6 cm; Wt 93.4 kg
[2018-10-02] MEDS ORDERED: APRESOLINE10 MG ORAL (04:54)
--- NOTE | 2018-10-02 05:00 | NUR ---
ED Nurse Note: RECIEVED PT FROM HOME, SON AT BEDSIDE, HERE WITH C/O DIZZINESS, SON STATES PT IS NON-COMPLIANT WITH MEDS AND EATING HABITS, PT DENIES CP OR ANY PAIN, NO SOB OR LABORED BREATHING AND STATES DOES NOT WANT TO BE HERE, PT IS COOPERATIVE, PT GOWNED AND PLACED ON MONITORING, WILL RESUME CARE ORDERED AND CLOSELY MONITOR FOR ANY CHANGES.
[2018-10-02 05:36] LABS: APPEARANCE,URINE CLEAR; BILIRUBIN, URINE NEGATIVE (NEGATIVE); COLOR,URINE PALE YELLOW; GLUCOSE, URINE (UA) NEGATIVE (NEGATIVE); KETONES,URINE NEGATIVE (NEGATIVE); LEUKOCYTE ESTERASE ,URINE 1+ (NEGATIVE); NITRITE,URINE NEGATIVE (NEGATIVE); PH,URINE 5 (4.5-8.0); PROTEIN,URINE NEGATIVE (NEGATIVE); UROBILINOGEN,URINE NORMAL MG/DL (0.0-1.0)
[2018-10-02 05:39] LABS: BASOPHILS % (AUTO) 1.4 % (0.0-2.0); EOSINOPHILS % (AUTO) 2.8 % (0.0-3.0); HEMATOCRIT 31.8 % (37.0-47.0); HEMOGLOBIN 10.2 G/DL (12.0-16.0); LYMPHOCYTES % (AUTO) 36.4 % (20.0-45.0); MEAN CORPUSCULAR VOLUME 87 FL (80-99); MONOCYTES % (AUTO) 13.7 % (1.0-10.0); NEUTROPHILS % (AUTO) 45.8 % (45.0-75.0); PLATELET COUNT 221 K/UL (150-450); RED BLOOD COUNT 3.65 M/UL (4.20-5.40); RED CELL DISTRIBUTION WIDTH 12.3 % (11.6-14.8); WHITE BLOOD COUNT 5.4 K/UL (4.8-10.8)
--- NOTE | 2018-10-02 05:40 | Diagnostic Imaging Report ---
EXAM: XR Chest, 1 View CLINICAL HISTORY: DIZZY TECHNIQUE: Frontal view of the chest. COMPARISON: Chest x-ray 09/10/18 FINDINGS: Lungs: Unremarkable. No consolidation. Pleural space: Unremarkable. No pneumothorax. Heart: Stable upper normal heart size. Mediastinum: Unremarkable. Bones/joints: Unremarkable. IMPRESSION: Stable upper normal heart size. No acute superimposed cardiopulmonary process.
[2018-10-02 05:45] VITALS: BP 158/73
[2018-10-02 05:51] LABS: ANION GAP 7 mmol/L (5-15); BLOOD UREA NITROGEN 44 mg/dL (7-18); CALCIUM 8.7 MG/DL (8.5-10.1); CARBON DIOXIDE 26 MMOL/L (21-32); CHLORIDE 105 MMOL/L (98-107); CREATININE 1.4 MG/DL (0.55-1.30); POTASSIUM 4.4 MMOL/L (3.5-5.1); SODIUM 138 MMOL/L (136-145)
[2018-10-02 06:07] LABS: ALANINE AMINOTRANSFERASE 23 U/L (12-78); ALBUMIN 3.2 G/DL (3.4-5.0); ALBUMIN/GLOBULIN RATIO 0.8 (1.0-2.7); ALKALINE PHOSPHATASE 95 U/L (46-116); ASPARTATE AMINO TRANSFERASE 16 U/L (15-37); BILIRUBIN,TOTAL 0.2 MG/DL (0.2-1.0); CKMB 0.7 NG/ML (0.0-3.6); CREATINE KINASE 90 U/L (26-308)
--- NOTE | 2018-10-02 06:40 | Emergency Room Report ---
History of Present Illness General Chief Complaint: Hypertension Source: Patient Present Illness HPI 77 yo F presents to ED c/o dizziness and high BP. BP in triage 158/73. Son at bedside states that patient is complaining of dizziness since last night. States that she is not compliant with her diet and not compliant with her blood pressure meds. Patient denies chest pain or shortness of breath. Denies headache. Denies smoking or drug use. No other aggravating relieving factors. Denies any other associated symptoms Allergies: Coded Allergies: PENICILLINS (Verified Allergy, Unknown, 09/10/18) Patient History Past Medical History: HTN Past Surgical History: none Pertinent Family History: none Social History: Denies: smoking, alcohol use, drug use Last Menstrual Period: SHAYLA Now: No Immunizations: UTD Reviewed Nursing Documentation: PMH: Agreed; PSxH: Agreed Nursing Documentation-PMH Past Medical History: No History, Except For Hx Cardiac Problems: Yes - high cholesterol,arthritis Hx Hypertension: Yes Hx Cancer: No Hx Gastrointestinal Problems: No Hx Neurological Problems: No Review of Systems All Other Systems: negative except mentioned in HPI Physical Exam Vital Signs Date Time Temp Pulse Resp B/P (MAP) Pulse Ox O2 Delivery O2 Flow Rate FiO2 10/02/18 04:50 97.5 98 18 96 10/02/18 05:45 158/73 Sp02 EP Interpretation: reviewed, normal General Appearance: no apparent distress, alert, GCS 15, non-toxic Head: normocephalic, atraumatic Eyes: bilateral eye normal inspection, bilateral eye PERRL ENT: hearing grossly normal, normal pharynx, no angioedema, normal voice Neck: full range of motion, supple/symm/no masses Respiratory: chest non-tender, lungs clear, normal breath sounds, speaking full sentences Cardiovascular #1: regular rate, rhythm, no edema Cardiovascular #2: 2+ carotid (R), 2+ carotid (L), 2+ radial (R), 2+ radial (L) , 2+ dorsalis pedis (R), 2+ dorsalis pedis (L) Gastrointestinal: normal bowel sounds, non tender, soft, non-distended, no guarding, no rebound Rectal: deferred Genitourinary: normal inspection, no CVA tenderness Musculoskeletal: back normal, gait/station normal, normal range of motion, non- tender Neurologic: alert, oriented x3, responsive, motor strength/tone normal, sensory intact, speech normal Psychiatric: judgement/insight normal, memory normal, mood/affect normal, no suicidal/homicidal ideation Reflexes: 3+ bicep (R), 3+ bicep (L), 3+ tricep (R), 3+ tricep (L), 3+ knee (R) , 3+ knee (L) Skin: normal color, no rash, warm/dry, well hydrated Lymphatic: no adenopathy Medical Decision Making Diagnostic Impression: Primary Impression: Acute on chronic renal failure Qualified Codes: N17.9 - Acute kidney failure, unspecified; N18.9 - Chronic kidney disease, unspecified Additional Impressions: HTN (hypertension) Qualified Codes: I10 - Essential (primary) hypertension Dizziness ER Course Hospital Course 77-year-old female presents ED complaining of dizziness, BP high Differential diagnoses include: VA/unstable angina, dehydration, hypertensive urgency Clinical course Patient placed on stretcher. on monitor tech. After initial history and physical I ordered labs, EKG, IVFs labs reviewed- no leukocytosis, hemoglobin/hematocrit stable, BUN/Cr eleavted, troponins negative EKG - NSR, no acute ischemic changes interpreted by me Chest x-ray- unremarkable Patient has been seen in this ED several times in the last few months for similar presentation. Clearly there is a point of noncompliance by the patient. Given increased renal insufficiency and persistent dizziness, we will admit I. I feel this is a highly complex case requiring extensive working including EKG/Rhythm strip, Xray/CT/US, Blood/urine lab work, repeat exams while in ED, and administration of strong opiates/narcotics for pain control, admission to hospital or close patient follow up. Diagnosis - acute on chronic renal failure, hypertension, dizziness admitted to telemetry in serious condition Labs Test 10/02/18 05:00 10/02/18 05:10 Urine Color Pale yellow Urine Appearance Clear Urine pH 5 (4.5-8.0) Urine Specific Wagoner 1.010 (1.005-1.035) Urine Protein Negative (NEGATIVE) Urine Glucose (UA) Negative (NEGATIVE) Urine Ketones Negative (NEGATIVE) Urine Blood Negative (NEGATIVE) Urine Nitrite Negative (NEGATIVE) Urine Bilirubin Negative (NEGATIVE) Urine Urobilinogen Normal MG/DL (0.0-1.0) Urine Leukocyte Esterase 1+ (NEGATIVE) Urine RBC 0 /HPF (0 - 2) Urine WBC 0-2 /HPF (0 - 2) Urine Squamous Epithelial Cells Occasional /LPF Urine Bacteria None /HPF (NONE) White Blood Count 5.4 K/UL (4.8-10.8) Red Blood Count 3.65 M/UL (4.20-5.40) Hemoglobin 10.2 G/DL (12.0-16.0) Hematocrit 31.8 % (37.0-47.0) Mean Corpuscular Volume 87 FL (80-99) Mean Corpuscular Hemoglobin 28.0 PG (27.0-31.0) Mean Corpuscular Hemoglobin Concent 32.1 G/DL (32.0-36.0) Red Cell Distribution Width 12.3 % (11.6-14.8) Platelet Count 221 K/UL (150-450) Mean Platelet Volume 6.1 FL (6.5-10.1) Neutrophils (%) (Auto) 45.8 % (45.0-75.0) Lymphocytes (%) (Auto) 36.4 % (20.0-45.0) Monocytes (%) (Auto) 13.7 % (1.0-10.0) Eosinophils (%) (Auto) 2.8 % (0.0-3.0) Basophils (%) (Auto) 1.4 % (0.0-2.0) Sodium Level 138 MMOL/L (136-145) Potassium Level 4.4 MMOL/L (3.5-5.1) Chloride Level 105 MMOL/L (98-107) Carbon Dioxide Level 26 MMOL/L (21-32) Anion Gap 7 mmol/L (5-15) Blood Urea Nitrogen 44 mg/dL (7-18) Creatinine 1.4 MG/DL (0.55-1.30) Estimat Glomerular Filtration Rate mL/min (>60) Glucose Level 102 MG/DL (74-106) Calcium Level 8.7 MG/DL (8.5-10.1) Total Bilirubin 0.2 MG/DL (0.2-1.0) Aspartate Amino Transf (AST/SGOT) 16 U/L (15-37) Alanine Aminotransferase (ALT/SGPT) 23 U/L (12-78) Alkaline Phosphatase 95 U/L (46-116) Total Creatine Kinase 90 U/L (26-308) Creatine Kinase MB 0.7 NG/ML (0.0-3.6) Creatine Kinase MB Relative Index 0.7 Troponin I 0.000 ng/mL (0.000-0.056) Pro-B-Type Natriuretic Peptide 62 pg/mL (0-125) Total Protein 7.2 G/DL (6.4-8.2) Albumin 3.2 G/DL (3.4-5.0) Globulin 4.0 g/dL Albumin/Globulin Ratio 0.8 (1.0-2.7) EKG Diagnostic Results Rate: normal Rhythm: NSR ST Segments: no acute changes ASA given to the pt in ED: No Rhythm Strip Diag. Results EP Interpretation: yes Rhythm: NSR, no PVC's, no ectopy Chest X-Ray Diagnostic Results Chest X-Ray Diagnostic Results : Chest X-Ray Ordered: Yes # of Views/Limited/Complete: 1 View Indication: Other - dizziness EP Interpretation: Yes Interpretation: no consolidation, no effusion, no pneumothorax, no acute cardiopulmonary disease Impression: No acute disease Electronically Signed by: Electronically signed by Jeremy Huang MD Last Vital Signs Date Time Temp Pulse Resp B/P (MAP) Pulse Ox O2 Delivery O2 Flow Rate FiO2 10/02/18 05:45 97.5 83 18 158/73 100 Status: improved Disposition: ADMITTED INPATIENT Condition: Serious Referrals: NOT CHOSEN IPA/,REFERRING (PCP) Jeremy Huang MD October 02, 2018 06:40
--- NOTE | 2018-10-02 07:32 | NUR ---
ED Nurse Note: Recieved report from POLLY Storm. Pt VSS, denies pain,denies sob. Pt A&O x4.
[2018-10-02 07:40] VITALS: BP 149/75
--- NOTE | 2018-10-02 09:21 | NUR ---
ED Nurse Note: Pt refused Nasal MRSA swab.
--- NOTE | 2018-10-02 09:32 | NUR ---
TRANSFER TO FLOOR: Patient transferred to as ordered, per Dr Benson. Report given to . Belongings and medications given to . Family and or S/O informed of transfer. RN resuesting transport in 15 mins. Addendum: 10/02/18 at 0934 by KDEARING Transfered to [facility], 218-2
--- NOTE | 2018-10-02 10:10 | NUR ---
NURSE NOTES: Patient transferred from ED, received report from Jane/RN, Patient awake and alert, Heart monitor placed. Inventory check done. IV on right AC running NS at 200cc/hr. Vital signs, Temp. 98,.7, B/P 146/72, O2 sat 98%, HR 89, RR 18. No acute distress at this time. Bed in low position, Call light within reach. Will continue plan of care.
[2018-10-02] MEDS ORDERED: Losartan 50mg tab ORAL SCH (10:45)
[2018-10-02] MEDS ORDERED: HydrALAZINE 25mg tab ORAL SCH ×2 (10:45→14:00)
[2018-10-02] MEDS ORDERED: Enoxaparin 40mg Inj SUBQ SCH (11:00)
[2018-10-02] MEDS ORDERED: Enoxaparin 30mg Inj SUBQ SCH (11:30)
[2018-10-02 12:00] VITALS: BP 146/72
--- NOTE | 2018-10-02 12:00 | NUR ---
NURSE NOTES: Patient refuse Hydralazine for blood pressure. She said it makes her drowsy.
--- NOTE | 2018-10-02 14:57 | NUR ---
CASE MANAGEMENT: REVIEW 77Y/F PRESENTED TO ED FROM HOME CC: DIZZINESS . HTN BP 180/85 SI: HTN . RENAL INSUFFICIENCY T 97.5 HR 94 RR 18 BP 158/73 SAT 96% ROOM AIR H/H 10.2/31.8 BUN 44 CR 1.4 IS: NS IVF BOLUS X1 PATIENT ADMITTED TO TELEMETRY UNIT 10/02/2018 DCP: PATIENT IS FROM HOME
[2018-10-02 16:00] VITALS: BP 145/76
--- NOTE | 2018-10-02 18:00 | History and Physical Report ---
DATE OF ADMISSION: 10/02/2018 PURPOSE FOR ADMISSION: 1. Hypertensive urgency. 2. Dizziness. HISTORY OF PRESENT ILLNESS: The patient is a 77-year-old female, who presented to the emergency room complaining of [id number] hypertension with elevated blood pressure with systolic of 158 in the emergency room and slight dizziness. The patient says that she does not tolerate losartan because it makes her nauseous and she has episodes of emesis. She had recently been started on a small dose of hydralazine in addition to her Norvasc. She denies any current chest pain, shortness of breath, nausea, vomiting, or diarrhea. Denies smoking or using illicit drug use. PAST MEDICAL HISTORY: Hypertension. PAST SURGICAL HISTORY: None. ALLERGIES: Penicillin. FAMILY HISTORY: Positive for hypertension. SOCIAL HISTORY: No tobacco, alcohol, or illicit drug use. REVIEW OF SYSTEMS: NEUROLOGIC: The patient was feeling a little lightheaded and dizzy. No syncope or presyncopal episodes. CARDIOVASCULAR: No current chest pain, palpitations, or angina. PULMONARY: No difficulty breathing, productive cough, or sputum. GASTROINTESTINAL/GENITOURINARY: No change in urinary or bowel habits. No nausea, vomiting, or diarrhea. ENDOCRINOLOGY: No night sweats, fevers, or chills. PHYSICAL EXAMINATION: VITAL SIGNS: Blood pressure 158/73, respiratory rate 18, pulse 83, temperature 97.5, and 100% oxygen saturation on room air. GENERAL: The patient is awake, alert, and not otherwise in distress. HEENT: Extraocular muscles intact. No lymphadenopathy noted. CARDIOVASCULAR: S1, S2. No murmurs or gallops. PULMONARY: Clear to auscultation bilaterally. No rales, rhonchi, or wheezes. ABDOMINAL: Nondistended and nontender. EXTREMITIES: No edema. LABORATORY DATA: Labs dated 10/02/2018 sodium 138, potassium 4.4, BUN 44, and creatinine 1.4. Troponin 0. Hemoglobin 10.2, white cell count 5.4, and platelet count 221,000. ASSESSMENT AND PLAN: 1. Hypertensive urgency. The patient at this time will be re-initiated on her Norvasc. We will discontinue losartan as it causes nausea and vomiting. We will increase hydralazine dose up to 25 mg t.i.d. Low-sodium diet and continued education on medicine compliance with antihypertensive medications. 2. Acute kidney injury. The patient was aggressively hydrated. Creatinine was 1.4. At this time, no further renal investigations and we will repeat BMP in a.m. If renal function continues to deteriorate, we will address at that time. 3. DVT prophylaxis with Lovenox. 4. Gastrointestinal prophylaxis with famotidine. David Stapleton MD DR: CASEY JOB#: [id number] CC:
[2018-10-02 20:00] VITALS: BP 153/82
--- NOTE | 2018-10-02 20:01 | NUR ---
HAND-OFF: Report given to Leon/RN, Patient alert and oriented, No acute distress. Endorsed plan of care.
--- NOTE | 2018-10-02 20:05 | NUR ---
NURSE NOTES: Received report from Gus Guzman RN. Patient in bed AAO X4 and is able to express needs and wants appropriately with no difficulty. No complaints of acute pain or discomfort at this time. Kept clean, dry, and comfortable in bed at all times. Placed on continuous cardiac monitoring per protocol. IV line intact and patent SL; tolerating RA with no S/S of resp distress or SOB noted, saturating at 95-96%. Patient is able to get up with assist to the bathroom. Safety precaution in place; siderails X2 up, call light within reach, bed in lowest position, brakes and alarm on at all times. Needs and wants anticipated and attended. Will continue plan of care and monitor for any changes noted.
[2018-10-02] MEDS ORDERED: CRESTOR20 MG ORAL (20:30)
[2018-10-02] MEDS ORDERED: VITAMIN D1000 UNI1 ORAL (20:30)
[2018-10-02] MEDS ORDERED: ASPIR 8181 MG ORAL (20:30)
[2018-10-02] MEDS ORDERED: OMEPRAZOLE20 M2 ORAL (20:30)
[2018-10-03] VITALS (7 sets, daily range): BP systolic 129–159; BP diastolic 63–89
--- NOTE | 2018-10-03 01:58 | NUR ---
NURSE NOTES: Patient in bed asleep with no S/S of distress noted at this time. Will continue to monitor.
[2018-10-03 07:31] LABS: BASOPHILS % (AUTO) 1.5 % (0.0-2.0); EOSINOPHILS % (AUTO) 3.2 % (0.0-3.0); HEMATOCRIT 30.7 % (37.0-47.0); HEMOGLOBIN 9.9 G/DL (12.0-16.0); LYMPHOCYTES % (AUTO) 41.6 % (20.0-45.0); MEAN CORPUSCULAR VOLUME 87 FL (80-99); NEUTROPHILS % (AUTO) 41.6 % (45.0-75.0); PLATELET COUNT 194 K/UL (150-450); RED BLOOD COUNT 3.51 M/UL (4.20-5.40); RED CELL DISTRIBUTION WIDTH 12.3 % (11.6-14.8); WHITE BLOOD COUNT 4.6 K/UL (4.8-10.8)
--- NOTE | 2018-10-03 07:35 | NUR ---
HAND-OFF: Report given to Jose Perez RN. Patient in bed in stable condition, endorsed plan of care.
[2018-10-03 07:48] LABS: ANION GAP 7 mmol/L (5-15); BLOOD UREA NITROGEN 38 mg/dL (7-18); CARBON DIOXIDE 28 MMOL/L (21-32); CHLORIDE 103 MMOL/L (98-107); CREATININE 1.3 MG/DL (0.55-1.30); POTASSIUM 4.8 MMOL/L (3.5-5.1); SODIUM 137 MMOL/L (136-145)
--- NOTE | 2018-10-03 07:50 | NUR ---
NURSE NOTES: Pt received from POLLY Quintero alert and oriented x4 with no acute s/s of distress. IV site asymptomatic and patent. Bed in lowest position, bed alarm on. Call light and belongings within reach. Pt is asking for second tray - RN called [facility] to order new one.
[2018-10-03] MEDS: Aspirin Baby 81mg ORAL SCH (08:51)
[2018-10-03] MEDS ORDERED: Losartan 25mg tab ORAL SCH (09:00)
[2018-10-03] MEDS: Enoxaparin 40mg Inj SUBQ SCH (09:02)
--- NOTE | 2018-10-03 12:55 | General Progress Note ---
Assessment/Plan Problem List: (1) ARF (acute renal failure) ICD Codes: N17.9 - Acute kidney failure, unspecified SNOMED: 60092840 (2) SIADH (syndrome of inappropriate ADH production) Assessment & Plan: Serum sodium normal now ICD Codes: E22.2 - Syndrome of inappropriate secretion of antidiuretic hormone SNOMED: 17658398 (3) HTN (hypertension) ICD Codes: I10 - Essential (primary) hypertension SNOMED: 21820882 Qualifiers: Qualified Codes: I10 - Essential (primary) hypertension (4) Dizziness ICD Codes: R42 - Dizziness and giddiness SNOMED: 404814595, 638123332 Assessment/Plan: Check orthostatic blood pressure Adjust BP meds as tolerated Physical therapy Discussed with RN Subjective Allergies: Coded Allergies: PENICILLINS (Verified Allergy, Unknown, 09/10/18) Subjective Patient states she is feeling horrible Objective Last 24 Hour Vital Signs Date Time Temp Pulse Resp B/P (MAP) Pulse Ox O2 Delivery O2 Flow Rate FiO2 10/03/18 09:00 Room Air 10/03/18 08:52 173/68 10/03/18 08:00 79 10/03/18 08:00 98.1 86 20 154/78 (103) 100 10/03/18 04:00 98.3 87 18 139/72 (94) 95 10/03/18 04:00 74 10/03/18 00:00 88 10/03/18 00:00 98.0 89 16 140/76 (97) 98 10/02/18 21:00 Room Air 10/02/18 20:00 84 10/02/18 20:00 97.9 92 18 153/82 (105) 96 10/02/18 18:00 82 10/02/18 16:00 98.8 95 20 145/76 (99) 96 Intake and Output 10/02/18 10/03/18 19:00 07:00 Intake Total 560 ml Balance 560 ml Intake Oral 360 ml IV Total 200 ml # Voids 5 3 # Bowel Movements 1 1 Laboratory Tests 10/03/18 06:55: White Blood Count 4.6L, Red Blood Count 3.51L, Hemoglobin 9.9L, Hematocrit 30.7L , Mean Corpuscular Volume 87, Mean Corpuscular Hemoglobin 28.2, Mean Corpuscular Hemoglobin Concent 32.3, Red Cell Distribution Width 12.3, Platelet Count 194, Mean Platelet Volume 6.6, Neutrophils (%) (Auto) 41.6L, Lymphocytes ( %) (Auto) 41.6, Monocytes (%) (Auto) 12.0H, Eosinophils (%) (Auto) 3.2H, Basophils (%) (Auto) 1.5, Sodium Level 137, Potassium Level 4.8, Chloride Level 103, Carbon Dioxide Level 28, Anion Gap 7, Blood Urea Nitrogen 38H, Creatinine 1.3, Estimat Glomerular Filtration Rate , Glucose Level 93, Calcium Level 9.0 Height (Feet): 5 Height (Inches): 4.00 Weight (Pounds): 185 Cardiovascular: normal rate Respiratory/Chest: lungs clear Edema: no edema noted Generalized Reynaldo Wang MD October 03, 2018 12:55
--- NOTE | 2018-10-03 13:07 | NUR ---
NURSE NOTES: Received order from Dr. Wang to assess pt's ortho VS. RN educated pt on the need for and how to assess ortho VS. Pt agreed to it initially and agreed to take vitals supine and sitting down but when prompted to stand up, pt became irate and stated - "I don't feel like getting up right now. Just take it with me sitting down." Educated that ortho VS must be taken lying down, sitting down, and standing up. Pt replied - "Then I'm not doing it right now, I'm not getting up." RN will attempt to do another ortho VS later.
--- NOTE | 2018-10-03 15:26 | NUR ---
NURSE NOTES: Endorsed ortho VS to Dr. Wang who ordered that the pt be started on IVF - NS at 75 ml/hr. BMP tomorrow. Check ortho VS qshift. Orders implemented and carried out. Will continue to monitor pt.
--- NOTE | 2018-10-03 19:30 | NUR ---
NURSE NOTES: Received patient from POLLY Valero. Will continue plan of care.
--- NOTE | 2018-10-03 19:35 | NUR ---
HAND-OFF: Report given to POLLY Caldera. No acute s/s of distress noted.
[2018-10-03] MEDS: Losartan 50mg tab ORAL SCH (20:42)
[2018-10-04] VITALS: BP 149/72
[2018-10-04 04:00] VITALS: BP 140/64
--- NOTE | 2018-10-04 07:10 | NUR ---
HAND-OFF: Report given to POLLY Quijano.
--- NOTE | 2018-10-04 07:19 | NUR ---
NURSE NOTES: Pt received from POLLY Caldera alert and oriented x4 with no s/s of acute distress noted. IV site asymptomatic and patent. Cane at bedside, advised pt to call when she needs assistance getting out of bed. Bed alarm on at all times. Bed in lowest position, call light and belongings within reach.
[2018-10-04 08:00] VITALS: BP 134/69
[2018-10-04 08:03] LABS: ANION GAP 7 mmol/L (5-15); BLOOD UREA NITROGEN 40 mg/dL (7-18); CALCIUM 8.6 MG/DL (8.5-10.1); CARBON DIOXIDE 28 MMOL/L (21-32); CHLORIDE 101 MMOL/L (98-107); CREATININE 1.4 MG/DL (0.55-1.30); POTASSIUM 4.6 MMOL/L (3.5-5.1); SODIUM 136 MMOL/L (136-145)
[2018-10-04] MEDS: Losartan 50mg tab ORAL SCH (09:00)
[2018-10-04] MEDS: Aspirin Baby 81mg ORAL SCH (09:03)
[2018-10-04] MEDS: Enoxaparin 40mg Inj SUBQ SCH (09:23)
--- NOTE | 2018-10-04 11:40 | Nephrology Progress Note ---
Assessment/Plan Problem List: (1) ARF (acute renal failure) Assessment: Renal function is stable (2) SIADH (syndrome of inappropriate ADH production) Assessment: Serum sodium normal now (3) HTN (hypertension) Assessment: Controlled (4) Dizziness Assessment: Better Plan Continue IV fluids for another 24 hours. Watch blood pressure Follow labs Physical therapy Subjective Subjective Patient feels better Objective Objective Last 24 Hour Vital Signs Date Time Temp Pulse Resp B/P (MAP) Pulse Ox O2 Delivery O2 Flow Rate FiO2 10/04/18 09:00 Room Air 10/04/18 09:00 134/69 10/04/18 08:00 98.7 79 18 134/69 (90) 99 10/04/18 08:00 76 10/04/18 04:00 98.4 80 20 140/64 (89) 99 10/04/18 03:40 78 10/04/18 00:00 98.0 85 20 149/72 (97) 99 10/03/18 23:35 80 10/03/18 23:35 69 10/03/18 21:00 Room Air 10/03/18 20:42 129/73 10/03/18 20:15 80 10/03/18 20:00 98.5 89 20 129/73 (91) 98 10/03/18 16:00 98.5 63 19 153/89 (110) 100 10/03/18 16:00 77 10/03/18 15:00 76 78 85 10/03/18 13:00 76 159/76 (103) 78 159/76 (103) 85 141/63 (89) 10/03/18 12:00 97.9 78 20 146/74 (98) 98 10/03/18 12:00 104 Intake and Output 10/03/18 10/04/18 19:00 07:00 Intake Total 240 ml 1050 ml Balance 240 ml 1050 ml Intake Oral 240 ml 300 ml IV Total 750 ml # Voids 5 5 # Bowel Movements 1 1 Laboratory Tests 10/04/18 07:45: Sodium Level 136, Potassium Level 4.6, Chloride Level 101, Carbon Dioxide Level 28, Anion Gap 7, Blood Urea Nitrogen 40H, Creatinine 1.4H, Estimat Glomerular Filtration Rate , Glucose Level 99, Calcium Level 8.6 Height (Feet): 5 Height (Inches): 4.00 Weight (Pounds): 185 Cardiovascular: normal rate Respiratory/Chest: lungs clear Extremities: trace edema - No edema Reynaldo Wang MD October 04, 2018 11:40
[2018-10-04 12:00] VITALS: BP_SYST 154; BP_SYST 159; BP_SYST 160; BP_DIAS 68; BP_DIAS 73; BP_DIAS 78
--- NOTE | 2018-10-04 13:43 | NUR ---
P.T Note: P.T consult received. P.T evaluation completed. See P.T evaluation for details. Based on P.T evaluation, pt functioning safely at baseline with ADL and gait/locomotion using her cane. Current functional status does not warrant skilled P.T service at this time. DC P.T services .Thank you for this referral.
[2018-10-04 16:00] VITALS: BP 122/72
--- NOTE | 2018-10-04 19:07 | Internal Med Progress Note ---
Subjective Physician Name José Miguel Benson Attending Physician José Miguel Benson MD Current Medications Medications (Trade) Dose Ordered Sig/Amos Route PRN Reason Start Time Stop Time Status Last Admin Dose Admin Acetaminophen (Tylenol) 650 mg Q4H PRN ORAL Mild Pain (Pain Scale 1-3) 10/02/18 10:30 11/01/18 10:29 Aspirin (ASA) 81 mg DAILY ORAL 10/03/18 09:00 11/02/18 08:59 10/04/18 09:03 Dextrose (Dextrose 50%) 25 ml Q30M PRN IV Hypoglycemia 10/02/18 10:30 11/01/18 10:29 Dextrose (Dextrose 50%) 50 ml Q30M PRN IV Hypoglycemia 10/02/18 10:30 11/01/18 10:29 Enoxaparin Sodium (Lovenox) 40 mg DAILY SUBQ 10/03/18 09:00 11/02/18 08:59 10/04/18 09:23 Famotidine (Pepcid) 40 mg DAILY ORAL 10/03/18 09:00 11/02/18 08:59 10/04/18 09:13 Losartan Potassium (Cozaar) 50 mg Q12HR ORAL 10/03/18 21:00 11/02/18 20:59 Ondansetron HCl (Zofran) 4 mg Q4H PRN IVP Nausea & Vomiting 10/03/18 10:45 11/02/18 10:44 10/03/18 10:59 Sodium Chloride 1,000 ml @ 75 mls/hr [id number] IV 10/03/18 15:23 11/02/18 15:22 10/04/18 05:04 Allergies: Coded Allergies: PENICILLINS (Verified Allergy, Unknown, 09/10/18) All Systems: reviewed and negative except above - dizzy Objective Last Vital Signs Date Time Temp Pulse Resp B/P (MAP) Pulse Ox O2 Delivery O2 Flow Rate FiO2 10/04/18 16:00 97.0 85 18 122/72 (89) 100 10/04/18 09:00 Room Air General Appearance: no apparent distress, alert EENT: PERRL/EOMI, normal ENT inspection Neck: normal alignment, supple Cardiovascular: regular rhythm Respiratory/Chest: lungs clear, normal breath sounds Abdomen: non tender, soft Extremities: normal range of motion, non-tender Edema: mild edema Neurologic: oriented x 3 Laboratory Tests Test 10/04/18 07:45 Sodium Level 136 MMOL/L (136-145) Potassium Level 4.6 MMOL/L (3.5-5.1) Chloride Level 101 MMOL/L (98-107) Carbon Dioxide Level 28 MMOL/L (21-32) Anion Gap 7 mmol/L (5-15) Blood Urea Nitrogen 40 mg/dL (7-18) H Creatinine 1.4 MG/DL (0.55-1.30) H Estimat Glomerular Filtration Rate mL/min (>60) Glucose Level 99 MG/DL (74-106) Calcium Level 8.6 MG/DL (8.5-10.1) Intake and Output 10/03/18 10/04/18 19:00 07:00 Intake Total 240 ml 1050 ml Balance 240 ml 1050 ml Intake Oral 240 ml 300 ml IV Total 750 ml # Voids 5 5 # Bowel Movements 1 1 Assessment/Plan Assessment/Plan ASSESSMENT AND PLAN: 1.HTN 2. Acute kidney injury. 3.SIADH 4. recurrent dizziness - likely orthostatic hypotension Plan 1. Medsurg 2. dc losartan which she refuses 3. start coreg 3.125mg PO BID. titrate up 4. Neuro consult 5. renal Consult DVT prophylaxis with Lovenox. Gastrointestinal prophylaxis with famotidine. José Miguel Benson MD October 04, 2018 19:07
--- NOTE | 2018-10-04 19:15 | NUR ---
NURSE NOTES: Dr. Benson assessed pt at bedside. Endorsed that pt has been refusing Losartan d/t complaints of dizziness and nausea. Dr. Benson placed new orders to switch for Coreg PO, OB stool, bladder scan, renal US, and Passenger [place] consult for potential SNF.
--- NOTE | 2018-10-04 19:45 | NUR ---
HAND-OFF: Report given to POLLY Barron. No acute s/s of distress noted.
--- NOTE | 2018-10-04 19:50 | NUR ---
NURSE NOTES: patient received. patient in no acute distress at this time. patient complains of no pain at this time. patient awake alert and oriented x4. patient son at bedside. patient ambulatory. cane at bedside. IV intact and asymptomatic. bed in lowest position and locked. call light within reach. will continue to monitor.
[2018-10-04 20:00] VITALS: BP 147/75
[2018-10-04] MEDS ORDERED: Carvedilol 6.25mg Tab ORAL SCH (21:00)
--- NOTE | 2018-10-04 21:45 | Consultation ---
History of Present Illness General Date patient seen: October 04, 2018 Chief Complaint: Dizziness Present Illness HPI Leeanna Sanchez is a 77-year-old female with a PMH of HTN, who presented to the emergency room complaining high blood pressure and dizziness. She has been noncompliant with her Losartan secondary to episodes of nausea and a single episode of emesis. Although she has recently been started on hydralazine, it was meant to be taken along with her Losartan. At present, she is alert and oriented, and reporting a mild headache. She denies any dizziness now and has no focal weakness. Allergies: Coded Allergies: PENICILLINS (Verified Allergy, Unknown, 09/10/18) Medication History Scheduled Amlodipine Besylate (Norvasc), 10 MG ORAL DAILY Aspirin* (Aspir 81*), 81 MG ORAL DAILY, (Reported) Cholecalciferol (Vitamin D3)* (Vitamin D*), 1,000 UNITS ORAL DAILY, (Reported) Hydralazine HCl (Hydralazine HCl), 10 MG ORAL EVERY 8 HOURS, (Reported) Omeprazole (Omeprazole), 20 MG ORAL DAILY, (Reported) Rosuvastatin Calcium* (Crestor*), 20 MG ORAL DAILY, (Reported) Discontinued Medications Losartan Potassium (Losartan Potassium), 100 MG ORAL DAILY, (Reported) Discontinued Reason: Therapy completed Patient History Healthcare decision maker N Resuscitation status Full Code Advanced Directive on File Past Medical/Surgical History Past Medical/Surgical History: (1) HTN (hypertension) (2) GERD (gastroesophageal reflux disease) Review of Systems Constitutional: Denies: no symptoms, see HPI, chills, sweats, fever, malaise, weakness, other Eye: Denies: no symptoms, see HPI, eye pain, blurred vision, tearing, double vision, nose pain, nose congestion, acuity changes, discharge, other ENT: Denies: no symptoms, see HPI, ear pain, ear discharge, nose pain, nose congestion, throat pain, throat swelling, mouth pain, hearing loss, nasal discharge, other Respiratory: Denies: no symptoms, see HPI, cough, orthopnea, shortness of breath, stridor, wheezing, MCGINNIS, sputum, other Cardiovascular: Denies: no symptoms, see HPI, chest pain, edema, palpitations, syncope, PND, other Gastrointestinal: Denies: no symptoms, see HPI, abdominal pain, constipation, diarrhea, nausea, vomiting, melena, hematemesis, other Genitourinary: Denies: no symptoms, see HPI, discharge, dysuria, frequency, hematuria, pain, retention, incontinence, urgency, vag bleed/dc, other Musculoskeletal: Denies: no symptoms, see HPI, back pain, gout, joint pain, joint swelling, muscle pain, muscle stiffness, other Skin: Denies: no symptoms, see HPI, rash, change in color, change in hair/nails , dryness, lesions, other Psychiatric: Denies: no symptoms, see HPI, prior hx, anxiety, depressed feelings, emotional problems, SI, HI, hallucinations, other Neurological: Denies: no symptoms, see HPI, headache, numbness, paresthesia, seizure, tingling, tremors, focal weakness, syncope, dizziness, other Endocrine: Denies: no symptoms, see HPI, excessive sweating, flushing, intolerance to temperature, increased thirst, increased urine, unexplained weight loss, other Hematologic/Lymphatic: Denies: no symptoms, see HPI, anemia, blood clots, easy bleeding, easy bruising, swollen glands, diathesis, other All Other Systems: negative except mentioned in HPI Physical Exam General Appearance: WD/WN, no apparent distress, alert, overweight Lines, tubes and drains: peripheral HEENT: normocephalic, atraumatic, anicteric, mucous membranes moist, PERRL, EOMI, pharynx normal, supple, no JVD Neck: non-tender, normal alignment, supple, normal inspection Cardiovascular/Chest: normal peripheral pulses Extremities: normal range of motion, non-tender, normal inspection, no calf tenderness, normal capillary refill, non-pitting, no edema, no cyanosis Skin Exam: normal pigmentation, warm/dry, no diaphoresis 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, no motor/sensory deficits, alert, oriented x 3, responsive, normal mood/affect Musculoskeletal: normal muscle bulk, no effusion Last 24 Hour Vital Signs Date Time Temp Pulse Resp B/P (MAP) Pulse Ox O2 Delivery O2 Flow Rate FiO2 10/04/18 21:04 77 122/72 10/04/18 16:00 97.0 85 18 122/72 (89) 100 10/04/18 16:00 77 10/04/18 12:00 88 10/04/18 12:00 98.6 87 18 159/68 (98) 99 94 154/73 (100) 98 160/78 (105) 10/04/18 09:00 Room Air 10/04/18 09:00 134/69 10/04/18 08:00 87 94 98 10/04/18 08:00 98.7 79 18 134/69 (90) 99 10/04/18 08:00 76 10/04/18 04:00 98.4 80 20 140/64 (89) 99 10/04/18 03:40 78 10/04/18 00:00 98.0 85 20 149/72 (97) 99 10/03/18 23:35 80 10/03/18 23:35 69 Intake and Output 10/03/18 10/04/18 19:00 07:00 Intake Total 240 ml 1050 ml Balance 240 ml 1050 ml Intake Oral 240 ml 300 ml IV Total 750 ml # Voids 5 5 # Bowel Movements 1 1 Laboratory Tests Test 10/04/18 07:45 Sodium Level 136 MMOL/L (136-145) Potassium Level 4.6 MMOL/L (3.5-5.1) Chloride Level 101 MMOL/L (98-107) Carbon Dioxide Level 28 MMOL/L (21-32) Anion Gap 7 mmol/L (5-15) Blood Urea Nitrogen 40 mg/dL (7-18) H Creatinine 1.4 MG/DL (0.55-1.30) H Estimat Glomerular Filtration Rate mL/min (>60) Glucose Level 99 MG/DL (74-106) Calcium Level 8.6 MG/DL (8.5-10.1) Height (Feet): 5 Height (Inches): 4.00 Weight (Pounds): 185 Medications Current Medications Medications (Trade) Dose Ordered Sig/Amos Route PRN Reason Start Time Stop Time Status Last Admin Dose Admin Acetaminophen (Tylenol) 650 mg Q4H PRN ORAL Mild Pain (Pain Scale 1-3) 10/02/18 10:30 11/01/18 10:29 Aspirin (ASA) 81 mg DAILY ORAL 10/03/18 09:00 11/02/18 08:59 10/04/18 09:03 Carvedilol (Coreg) 3.125 mg EVERY 12 HOURS ORAL 10/04/18 21:00 11/03/18 20:59 10/04/18 21:04 Dextrose (Dextrose 50%) 25 ml Q30M PRN IV Hypoglycemia 10/02/18 10:30 11/01/18 10:29 Dextrose (Dextrose 50%) 50 ml Q30M PRN IV Hypoglycemia 10/02/18 10:30 11/01/18 10:29 Enoxaparin Sodium (Lovenox) 40 mg DAILY SUBQ 10/03/18 09:00 11/02/18 08:59 10/04/18 09:23 Famotidine (Pepcid) 40 mg DAILY ORAL 10/03/18 09:00 11/02/18 08:59 10/04/18 09:13 Ondansetron HCl (Zofran) 4 mg Q4H PRN IVP Nausea & Vomiting 10/03/18 10:45 11/02/18 10:44 10/03/18 10:59 Sodium Chloride 1,000 ml @ 75 mls/hr [id number] IV 10/03/18 15:23 11/02/18 15:22 10/04/18 05:04 Assessment/Plan Problem List: (1) UTI (urinary tract infection) ICD Codes: N39.0 - Urinary tract infection, site not specified SNOMED: 75392512 Qualifiers: (2) Dizziness Assessment & Plan: Resolved ICD Codes: R42 - Dizziness and giddiness SNOMED: 268098180, 159941061 (3) HTN (hypertension) ICD Codes: I10 - Essential (primary) hypertension SNOMED: 31392215 Qualifiers: Qualified Codes: I10 - Essential (primary) hypertension (4) Episode of generalized weakness ICD Codes: R53.1 - Weakness SNOMED: 02606150 (5) Anemia ICD Codes: D64.9 - Anemia, unspecified SNOMED: 862232041 Qualifiers: Status: doing well, stable Assessment/Plan: Continue Q4 Hr Neuro Obs Na 135-145 Treat Iron deficient Anemia - HgB>8 Meclizine PRN for dizziness - if any recurs OOB w/ PT Abx as per ID SBP<140 Kiesha Harper N.P. October 04, 2018 21:45
[2018-10-05] VITALS: BP 154/76
[2018-10-05 04:00] VITALS: BP 126/71
--- NOTE | 2018-10-05 07:15 | NUR ---
HAND-OFF: Report given to alan guido. Addendum: 10/05/18 at 0716 by ALEJANDRA GALEAS RN HAND-OFF: Report given to alan gimenez.
--- NOTE | 2018-10-05 07:20 | NUR ---
NURSE NOTES: Pt received from POLLY Barron alert and oriented x4 with no acute s/s of distress noted. IV site aysmptomatic and patent. Bed in lowest position, call light and belongings within reach. Bed alarm on.
[2018-10-05 07:38] LABS: BASOPHILS % (AUTO) 1.3 % (0.0-2.0); EOSINOPHILS % (AUTO) 3.2 % (0.0-3.0); HEMATOCRIT 30.3 % (37.0-47.0); HEMOGLOBIN 9.8 G/DL (12.0-16.0); LYMPHOCYTES % (AUTO) 38.9 % (20.0-45.0); MEAN CORPUSCULAR VOLUME 87 FL (80-99); NEUTROPHILS % (AUTO) 45.7 % (45.0-75.0); PLATELET COUNT 216 K/UL (150-450); RED BLOOD COUNT 3.49 M/UL (4.20-5.40); RED CELL DISTRIBUTION WIDTH 12.2 % (11.6-14.8); WHITE BLOOD COUNT 4.8 K/UL (4.8-10.8)
[2018-10-05 07:55] LABS: % IRON SATURATION 16 % (15-50); IRON 44 ug/dL (50-175); TOTAL IRON BINDING CAPACITY 271 ug/dL (250-450)
[2018-10-05 08:00] VITALS: BP_SYST 125; BP_SYST 138; BP_SYST 156; BP_DIAS 69; BP_DIAS 73; BP_DIAS 81
[2018-10-05 08:00] LABS: ANION GAP 6 mmol/L (5-15); BLOOD UREA NITROGEN 44 mg/dL (7-18); CALCIUM 8.8 MG/DL (8.5-10.1); CARBON DIOXIDE 28 MMOL/L (21-32); CHLORIDE 105 MMOL/L (98-107); CREATININE 1.3 MG/DL (0.55-1.30); POTASSIUM 4.9 MMOL/L (3.5-5.1); SODIUM 139 MMOL/L (136-145)
[2018-10-05] MEDS: Aspirin Baby 81mg ORAL SCH (08:17)
[2018-10-05] MEDS: Enoxaparin 40mg Inj SUBQ SCH (08:25)
[2018-10-05 08:32] LABS: FERRITIN 68 NG/ML (8-388)
--- NOTE | 2018-10-05 10:15 | NUR ---
NURSE NOTES: Ortho VS positive - endorsed to Dr. Benson.
--- NOTE | 2018-10-05 11:02 | NUR ---
CASE MANAGEMENT:REVIEW 10/05/18 SI: HTN. GUILLERMO. SIADH 98.2 70 20 126/71 99% ON RA H/H-9.8/30.3 IS: COREG PO Q12 IVF@75/HR ASA PO PEPCID PO QD LOVENOX SQ QD : TELEMETRY STATUS DCP: FROM HOME
--- NOTE | 2018-10-05 11:24 | NUR ---
Social Service Note AARON spoke with patient's son Mann Sanchez [phone] to assess for home safety. Son states patient previous doses of medication were to high and patient complained of feeling drowsy. Medication has been changed several times and now patient is suppose to take blood pressure pill three times a day. Son states patient lives alone and he either visits or speaks to her on the phone daily. Son doesn't believe she may be taking the medication as ordered due to her multiple recent hospital visits. Dr. Benson is patient's PCP and is compliant with office visits. Vlad and Dr. Benson have discussed with patient weight loss to help with maintaining her blood pressure. Son shops for healthier foods to be in the home to eat. Patient uses a cane at home. Son will provide transportation home once medically appropriate. AARON informed Dr. Benson recommendations for dietary consult and home health nurse visit upon discharge home. Will monitor and be available as needed.
[2018-10-05 12:00] VITALS: BP 126/60
--- NOTE | 2018-10-05 12:03 | NUR ---
RD ASSESSMENT & RECOMMENDATIONS SEE CARE ACTIVITY FOR COMPLETE ASSESSMENT DAILY ESTIMATED NEEDS: Needs based on cardiac, obese 64kg adj 22-27 kcals/kg 6806-4489 total kcals 1-1.2 g protein/kg 64-77 g total protein 25-30 mL/kg 6716-0903 total fluid mLs NUTRITION DIAGNOSIS: Decreased sodium and fat needs r/t cardiac history as evidenced by pt w/ h/o HTN, BMI is obese per guidelines. CURRENT DIET: Low Na PO DIET RECOMMENDATIONS: CARDIAC DIET (Low Na/ Low Fat) ADDITIONAL RECOMMENDATIONS: 1) Provided diet edu for Low Na diet 2) Obtain a standing scale weight 3) Pt is edentulous, rec soft easy chew foods
[2018-10-05 16:00] VITALS: BP 123/67
--- NOTE | 2018-10-05 16:03 | Internal Med Progress Note ---
Subjective Physician Name José Miguel Benson Attending Physician José Miguel Benson MD Current Medications Medications (Trade) Dose Ordered Sig/Amos Route PRN Reason Start Time Stop Time Status Last Admin Dose Admin Acetaminophen (Tylenol) 650 mg Q4H PRN ORAL Mild Pain (Pain Scale 1-3) 10/02/18 10:30 11/01/18 10:29 Aspirin (ASA) 81 mg DAILY ORAL 10/03/18 09:00 11/02/18 08:59 10/05/18 08:17 Carvedilol (Coreg) 3.125 mg EVERY 12 HOURS ORAL 10/04/18 21:00 11/03/18 20:59 10/05/18 08:17 Dextrose (Dextrose 50%) 25 ml Q30M PRN IV Hypoglycemia 10/02/18 10:30 11/01/18 10:29 Dextrose (Dextrose 50%) 50 ml Q30M PRN IV Hypoglycemia 10/02/18 10:30 11/01/18 10:29 Enoxaparin Sodium (Lovenox) 40 mg DAILY SUBQ 10/03/18 09:00 11/02/18 08:59 10/05/18 08:25 Famotidine (Pepcid) 40 mg DAILY ORAL 10/03/18 09:00 11/02/18 08:59 10/05/18 08:16 Ondansetron HCl (Zofran) 4 mg Q4H PRN IVP Nausea & Vomiting 10/03/18 10:45 11/02/18 10:44 10/03/18 10:59 Sodium Chloride 1,000 ml @ 75 mls/hr [id number] IV 10/03/18 15:23 11/02/18 15:22 10/05/18 08:15 Allergies: Coded Allergies: PENICILLINS (Verified Allergy, Unknown, 09/10/18) All Systems: reviewed and negative except above - + orthostatics today ; dizziness earlier Objective Last Vital Signs Date Time Temp Pulse Resp B/P (MAP) Pulse Ox O2 Delivery O2 Flow Rate FiO2 10/05/18 12:00 98.4 74 18 126/60 (82) 99 10/05/18 09:00 Room Air General Appearance: WD/WN, no apparent distress EENT: PERRL/EOMI, normal ENT inspection Neck: normal alignment, supple Cardiovascular: normal peripheral pulses, normal rate Respiratory/Chest: lungs clear, normal breath sounds Abdomen: non tender, soft Extremities: normal range of motion, non-tender Edema: trace edema, mild edema Skin: normal pigmentation, warm/dry Laboratory Tests Test 10/05/18 07:02 White Blood Count 4.8 K/UL (4.8-10.8) Red Blood Count 3.49 M/UL (4.20-5.40) L Hemoglobin 9.8 G/DL (12.0-16.0) L Hematocrit 30.3 % (37.0-47.0) L Mean Corpuscular Volume 87 FL (80-99) Mean Corpuscular Hemoglobin 28.2 PG (27.0-31.0) Mean Corpuscular Hemoglobin Concent 32.4 G/DL (32.0-36.0) Red Cell Distribution Width 12.2 % (11.6-14.8) Platelet Count 216 K/UL (150-450) Mean Platelet Volume 6.4 FL (6.5-10.1) L Neutrophils (%) (Auto) 45.7 % (45.0-75.0) Lymphocytes (%) (Auto) 38.9 % (20.0-45.0) Monocytes (%) (Auto) 11.0 % (1.0-10.0) H Eosinophils (%) (Auto) 3.2 % (0.0-3.0) H Basophils (%) (Auto) 1.3 % (0.0-2.0) Sodium Level 139 MMOL/L (136-145) Potassium Level 4.9 MMOL/L (3.5-5.1) Chloride Level 105 MMOL/L (98-107) Carbon Dioxide Level 28 MMOL/L (21-32) Anion Gap 6 mmol/L (5-15) Blood Urea Nitrogen 44 mg/dL (7-18) H Creatinine 1.3 MG/DL (0.55-1.30) Estimat Glomerular Filtration Rate mL/min (>60) Glucose Level 92 MG/DL (74-106) Calcium Level 8.8 MG/DL (8.5-10.1) Iron Level 44 ug/dL (50-175) L Total Iron Binding Capacity 271 ug/dL (250-450) Percent Iron Saturation 16 % (15-50) Unsaturated Iron Binding 227 ug/dL (112-346) Ferritin 68 NG/ML (8-388) Intake and Output 10/04/18 10/05/18 19:00 07:00 Intake Total 1460 ml 240 ml Balance 1460 ml 240 ml Intake Oral 1160 ml 240 ml IV Total 300 ml # Voids 5 3 # Bowel Movements 1 1 Assessment/Plan Assessment/Plan ASSESSMENT AND PLAN: 1.HTN 2. Acute kidney injury. 3.SIADH 4. recurrent dizziness - likely orthostatic hypotension 5. azotemia (BUN elevated at 40) - ddx: r/o GI bleed 6. anemia - fe deficiency Plan 1. Medsurg 2. dc losartan which she refuses 3. cw coreg 3.125mg PO BID. titrate up 4. Neuro consult 5. renal Consult 6. compression stalkings 7. + orthostatics today; 8. Will discuss GI consult for elevated BUN and fe deficiency. BUN not decreasing with IVF. r/o GI bleed DVT prophylaxis with Lovenox. Gastrointestinal prophylaxis with famotidine. José Miguel Benson MD October 05, 2018 16:03
--- NOTE | 2018-10-05 16:35 | NUR ---
NURSE NOTES: Pt refused IV fluids stating "it makes me dizzy". RN educated pt about why she has IV fluids as well as the risks and benefits, pt stated "But I just get dizzy from it. I don't like it." Endorsed to Dr. Benson
--- NOTE | 2018-10-05 19:20 | NUR ---
NURSE NOTES: Received pt. and report from POLLY Quijano. Observe pt. resting in bed with both eyes open and watching television. IV site intact, asymptomatic, and patent; pt. is refusing IV fluids. air sampling and monitoring is in placed, call light within reach. Bed is in the lowest position, locked, and alarmed. No signs/symptoms of acute distress noted at this time. Will continue plan of care.
--- NOTE | 2018-10-05 19:32 | NUR ---
HAND-OFF: Report given to POLLY Hemphill. No acute s/s of distress noted.
--- NOTE | 2018-10-05 19:50 | NUR ---
NURSE NOTES: Pt. refused MILI hose. Educated pt. that MILI hose is to be worn to prevent blood clots. Pt. still refused and said, "I don't need it. I walk and get a shot." Pt receives Lovenox subQ 0900 daily. Addendum: 10/06/18 at 0251 by Mariam Huitron Mai, RN Pt. also refused IV fluids. Educated pt. reason for IV fluids and risks/benefits of it. Pt still refused it stating, "I don't want it. I keep having to get up to use the bathroom."
[2018-10-05 20:00] VITALS: BP_SYST 139; BP_SYST 146; BP_SYST 147; BP_DIAS 69; BP_DIAS 73; BP_DIAS 74
--- NOTE | 2018-10-05 20:07 | Nephrology Progress Note ---
Assessment/Plan Problem List: (1) ARF (acute renal failure) Assessment: Renal function is stable (2) SIADH (syndrome of inappropriate ADH production) Assessment: Serum sodium normal now (3) HTN (hypertension) Assessment: Controlled (4) Dizziness Assessment: Better Plan Continue IV fluids Discussed with Dr Benson Watch blood pressure Follow labs Physical therapy Subjective Subjective Patient feels better Still feels not completely back to normal Objective Objective Last 24 Hour Vital Signs Date Time Temp Pulse Resp B/P (MAP) Pulse Ox O2 Delivery O2 Flow Rate FiO2 10/05/18 16:00 79 10/05/18 16:00 98.7 87 18 123/67 (85) 100 10/05/18 12:00 98.4 74 18 126/60 (82) 99 10/05/18 12:00 77 10/05/18 09:00 Room Air 10/05/18 08:17 82 128/73 10/05/18 08:00 98.6 82 18 156/81 (106) 100 80 138/73 (94) 92 125/69 (87) 10/05/18 08:00 74 10/05/18 08:00 80 82 92 10/05/18 04:00 98.2 72 20 126/71 (89) 99 10/05/18 04:00 70 10/05/18 00:00 98.1 85 20 154/76 (102) 99 10/04/18 21:04 77 122/72 10/04/18 21:00 Room Air 10/04/18 21:00 89 98 96 Intake and Output 10/04/18 10/05/18 19:00 07:00 Intake Total 1460 ml 240 ml Balance 1460 ml 240 ml Intake Oral 1160 ml 240 ml IV Total 300 ml # Voids 5 3 # Bowel Movements 1 1 Laboratory Tests 10/05/18 07:02: White Blood Count 4.8, Red Blood Count 3.49L, Hemoglobin 9.8L, Hematocrit 30.3L , Mean Corpuscular Volume 87, Mean Corpuscular Hemoglobin 28.2, Mean Corpuscular Hemoglobin Concent 32.4, Red Cell Distribution Width 12.2, Platelet Count 216, Mean Platelet Volume 6.4L, Neutrophils (%) (Auto) 45.7, Lymphocytes ( %) (Auto) 38.9, Monocytes (%) (Auto) 11.0H, Eosinophils (%) (Auto) 3.2H, Basophils (%) (Auto) 1.3, Sodium Level 139, Potassium Level 4.9, Chloride Level 105, Carbon Dioxide Level 28, Anion Gap 6, Blood Urea Nitrogen 44H, Creatinine 1.3, Estimat Glomerular Filtration Rate , Glucose Level 92, Calcium Level 8.8, Iron Level 44L, Total Iron Binding Capacity 271, Percent Iron Saturation 16, Unsaturated Iron Binding 227, Ferritin 68 Height (Feet): 5 Height (Inches): 4.00 Weight (Pounds): 185 Cardiovascular: normal rate Respiratory/Chest: lungs clear Extremities: other - No edema Reynaldo Wang MD October 05, 2018 20:07
--- NOTE | 2018-10-05 21:47 | Neurology Progress Note ---
Interim History Interim History ROS Limited/Unobtainable: No Complaints: Dizziness/ Weakness Events: None new Review of Systems All Systems: reviewed and negative except above Objective Physical Exam Last Vital Signs Date Time Temp Pulse Resp B/P (MAP) Pulse Ox O2 Delivery O2 Flow Rate FiO2 10/05/18 21:14 88 147/74 10/05/18 16:00 98.7 18 100 10/05/18 09:00 Room Air Laboratory Tests Test 10/05/18 07:02 White Blood Count 4.8 K/UL (4.8-10.8) Red Blood Count 3.49 M/UL (4.20-5.40) L Hemoglobin 9.8 G/DL (12.0-16.0) L Hematocrit 30.3 % (37.0-47.0) L Mean Corpuscular Volume 87 FL (80-99) Mean Corpuscular Hemoglobin 28.2 PG (27.0-31.0) Mean Corpuscular Hemoglobin Concent 32.4 G/DL (32.0-36.0) Red Cell Distribution Width 12.2 % (11.6-14.8) Platelet Count 216 K/UL (150-450) Mean Platelet Volume 6.4 FL (6.5-10.1) L Neutrophils (%) (Auto) 45.7 % (45.0-75.0) Lymphocytes (%) (Auto) 38.9 % (20.0-45.0) Monocytes (%) (Auto) 11.0 % (1.0-10.0) H Eosinophils (%) (Auto) 3.2 % (0.0-3.0) H Basophils (%) (Auto) 1.3 % (0.0-2.0) Sodium Level 139 MMOL/L (136-145) Potassium Level 4.9 MMOL/L (3.5-5.1) Chloride Level 105 MMOL/L (98-107) Carbon Dioxide Level 28 MMOL/L (21-32) Anion Gap 6 mmol/L (5-15) Blood Urea Nitrogen 44 mg/dL (7-18) H Creatinine 1.3 MG/DL (0.55-1.30) Estimat Glomerular Filtration Rate mL/min (>60) Glucose Level 92 MG/DL (74-106) Calcium Level 8.8 MG/DL (8.5-10.1) Iron Level 44 ug/dL (50-175) L Total Iron Binding Capacity 271 ug/dL (250-450) Percent Iron Saturation 16 % (15-50) Unsaturated Iron Binding 227 ug/dL (112-346) Ferritin 68 NG/ML (8-388) Impression/Recommendations Problems: (1) Dizziness Assessment & Plan: Resolved (2) UTI (urinary tract infection) (3) HTN (hypertension) (4) Episode of generalized weakness (5) Dehydration (6) Anemia (7) Encephalopathy acute Assessment & Plan: Improved Continue Q4 Hour Neuro Obs Na 135-145 SBP< 140 Asa 81mg Status: doing well, stable, tolerating diet, ambulating well Kiesha Harper N.P. October 05, 2018 21:47
[2018-10-06] VITALS: BP 149/71
[2018-10-06 04:00] VITALS: BP 142/74
--- NOTE | 2018-10-06 05:41 | NUR ---
NURSE NOTES: Completed post void residual bladder scan. Pt had 0ml residual after pt. voided.
[2018-10-06 07:39] LABS: ANION GAP 8 mmol/L (5-15); BLOOD UREA NITROGEN 41 mg/dL (7-18); CALCIUM 8.9 MG/DL (8.5-10.1); CARBON DIOXIDE 26 MMOL/L (21-32); CHLORIDE 106 MMOL/L (98-107); CREATININE 1.4 MG/DL (0.55-1.30); SODIUM 140 MMOL/L (136-145)
--- NOTE | 2018-10-06 07:43 | NUR ---
HAND-OFF: Report given to POLLY Segal.
--- NOTE | 2018-10-06 07:47 | NUR ---
NURSE NOTES: Received report from Kanchan MATIAS. AOx4. Pt in bed and eating breakfast. No c/o pain. Denied dizziness. No signs of distress noted. IV RAC 20g SL patent and intact. Refused IV hydration of NS ordered. Made awake. Bed in lowest position and locked. Will continue plan of care.
[2018-10-06 08:00] VITALS: BP 140/80
[2018-10-06] MEDS: Aspirin Baby 81mg ORAL SCH (08:05)
[2018-10-06] MEDS: Enoxaparin 40mg Inj SUBQ SCH (08:08)
--- NOTE | 2018-10-06 09:21 | GI Initial Consult Note ---
History of Present Illness General Reason for Hospitalization: Hypertension Present Illness Home Meds Active Scripts Amlodipine Besylate (Norvasc) 10 Mg Tablet, 10 MG ORAL DAILY, #30 TAB Prov:José Miguel Benson MD 12/13/15 Reported Medications Cholecalciferol (Vitamin D3)* (VITAMIN D*) 1,000 Unit Tablet, 1000 UNITS ORAL DAILY 10/02/18 Aspirin* (ASPIR 81*) 81 Mg Tablet.dr, 81 MG ORAL DAILY 10/02/18 Omeprazole (OMEPRAZOLE) 20 Mg Capsule.dr, 20 MG ORAL DAILY 10/02/18 Rosuvastatin Calcium* (CRESTOR*) 20 Mg Tablet, 20 MG ORAL DAILY 10/02/18 Hydralazine HCl (Hydralazine HCl) 10 Mg Tablet, 10 MG ORAL EVERY 8 HOURS, TAB 10/02/18 Discontinued Reported Medications Losartan Potassium (LOSARTAN POTASSIUM) 100 Mg Tablet, 100 MG ORAL DAILY, TAB 06/24/18 Allergies: Coded Allergies: PENICILLINS (Verified Allergy, Unknown, 09/10/18) Physical Exam Vital Signs Date Time Temp Pulse Resp B/P (MAP) Pulse Ox O2 Delivery O2 Flow Rate FiO2 10/02/18 07:36 84 14 Room Air 10/02/18 07:40 149/75 99 10/02/18 12:00 98.7 Labs Laboratory Tests Test 10/06/18 06:33 Sodium Level 140 MMOL/L (136-145) Potassium Level 5.0 MMOL/L (3.5-5.1) Chloride Level 106 MMOL/L (98-107) Carbon Dioxide Level 26 MMOL/L (21-32) Anion Gap 8 mmol/L (5-15) Blood Urea Nitrogen 41 mg/dL (7-18) H Creatinine 1.4 MG/DL (0.55-1.30) H Estimat Glomerular Filtration Rate mL/min (>60) Glucose Level 96 MG/DL (74-106) Calcium Level 8.9 MG/DL (8.5-10.1) Current Medications Current Medications Medications (Trade) Dose Ordered Sig/Amos Route PRN Reason Start Time Stop Time Status Last Admin Dose Admin Acetaminophen (Tylenol) 650 mg Q4H PRN ORAL Mild Pain (Pain Scale 1-3) 10/02/18 10:30 11/01/18 10:29 Aspirin (ASA) 81 mg DAILY ORAL 10/03/18 09:00 11/02/18 08:59 10/06/18 08:05 Carvedilol (Coreg) 3.125 mg EVERY 12 HOURS ORAL 10/04/18 21:00 11/03/18 20:59 10/06/18 08:20 Dextrose (Dextrose 50%) 25 ml Q30M PRN IV Hypoglycemia 10/02/18 10:30 11/01/18 10:29 Dextrose (Dextrose 50%) 50 ml Q30M PRN IV Hypoglycemia 10/02/18 10:30 11/01/18 10:29 Enoxaparin Sodium (Lovenox) 40 mg DAILY SUBQ 10/03/18 09:00 11/02/18 08:59 10/06/18 08:08 Famotidine (Pepcid) 40 mg DAILY ORAL 10/03/18 09:00 11/02/18 08:59 10/06/18 08:05 Ondansetron HCl (Zofran) 4 mg Q4H PRN IVP Nausea & Vomiting 10/03/18 10:45 11/02/18 10:44 10/03/18 10:59 Sodium Chloride 1,000 ml @ 75 mls/hr [id number] IV 10/03/18 15:23 11/02/18 15:22 10/05/18 08:15 GI: Plan Plan see full dictation anemia work up fu stool ob ppi patient refusing colonoscopy Thank you Dallin Maurice MD October 06, 2018 09:21
--- NOTE | 2018-10-06 10:51 | NUR ---
NURSE NOTES: Refused Dulcolax supp as ordered. She states "I tried it before and it did note work. I don't want to try again. Explain pt the benefits and risks of med x3 but still refused.
--- NOTE | 2018-10-06 11:47 | Nephrology Progress Note ---
Assessment/Plan Problem List: (1) ARF (acute renal failure) Assessment: Renal function is stable (2) SIADH (syndrome of inappropriate ADH production) Assessment: Serum sodium normal now (3) HTN (hypertension) Assessment: Adequately controlled for now (4) Dizziness Assessment: Better Assessment No orthostatic blood pressure drop from supine to standing position, however patient's heart rate goes up slightly. Plan Continue IV fluids Discussed with Dr Benson Follow labs Physical therapy Subjective Subjective Patient does not feel dizzy when she stands up Objective Objective Last 24 Hour Vital Signs Date Time Temp Pulse Resp B/P (MAP) Pulse Ox O2 Delivery O2 Flow Rate FiO2 10/06/18 09:00 Room Air 10/06/18 08:20 79 140/80 10/06/18 08:00 97.6 79 20 140/80 (100) 95 10/06/18 08:00 80 82 94 10/06/18 08:00 85 10/06/18 04:00 97.1 77 18 142/74 (96) 98 10/06/18 04:00 86 10/06/18 00:00 83 10/06/18 00:00 97.5 81 19 149/71 (97) 97 10/05/18 21:14 88 147/74 10/05/18 21:00 Room Air 10/05/18 21:00 88 84 93 10/05/18 20:00 106 10/05/18 20:00 97.5 88 18 147/74 (98) 100 139/73 (95) 146/69 (94) 10/05/18 16:00 79 10/05/18 16:00 98.7 87 18 123/67 (85) 100 10/05/18 12:00 98.4 74 18 126/60 (82) 99 10/05/18 12:00 77 Intake and Output 10/05/18 10/06/18 18:59 06:59 Intake Total 2043 ml Balance 2043 ml Intake Oral 990 ml IV Total 1053 ml # Voids 2 4 # Bowel Movements 1 3 Laboratory Tests 10/06/18 06:33: Sodium Level 140, Potassium Level 5.0, Chloride Level 106, Carbon Dioxide Level 26, Anion Gap 8, Blood Urea Nitrogen 41H, Creatinine 1.4H, Estimat Glomerular Filtration Rate , Glucose Level 96, Calcium Level 8.9 Height (Feet): 5 Height (Inches): 4.00 Weight (Pounds): 206 Cardiovascular: normal rate Respiratory/Chest: lungs clear Reynaldo Wang MD October 06, 2018 11:47
[2018-10-06 12:00] VITALS: BP 148/78
[2018-10-06] MEDS ORDERED: Meclizine 25mg tab ORAL PRN (12:15)
--- NOTE | 2018-10-06 15:42 | Diagnostic Imaging Report ---
Indication: Abnormal renal function Technique: grayscale and proximal Doppler imaging of the kidneys Comparison: 06/29/2018 Findings: Very technically limited exam due to patient body habitus. Right kidney is poorly evaluated. Echogenicity appears grossly unremarkable. No definite hydronephrosis is identified. Multiple cysts noted in the left kidney the largest measures approximately 8 cm in diameter. No obvious hydronephrosis is noted on the left. Echogenicity appears grossly unremarkable. Bladder is poorly evaluated but grossly unremarkable. IMPRESSION: Technically limited exam as above, kidneys are poorly visualized. No definite evidence of hydronephrosis. Renal echogenicity appears grossly unremarkable. Renal cysts noted. Additional imaging with CT or MRI can be obtained for more sensitive evaluation as clinically indicated.
--- NOTE | 2018-10-06 15:45 | Cardiology Report ---
APPROVED REPORT EKG Measurement Heart [id number] Normal sinus rhythm Septal infarct, age undetermined Abnormal ECG
[2018-10-06 16:00] VITALS: BP 157/70
--- NOTE | 2018-10-06 16:04 | NUR ---
P.T NOTE: P.T RE CONSULT RECEIVED. P.T RE EVALUATION COMPLETED. NO SIGNIFICANT DECLINED IN FUNCTIONAL MOBILITY NOTED. SKILLED P.T SERVICE NOT NEEDED AT THIS TIME. DISCUSSED PATIENT'S CURRENT FUNCTIONAL STATUS WITH RN. RN AWARE. ENCOURAGED PATIENT OOB ACTIVITIES VS BEDREST : PATIENT VERBALIZED UNDERSTANDING. DC P.T SERVICES. Addendum: 10/06/18 at 1604 by BURKE ROBBINS PT Amended: Links added.
--- NOTE | 2018-10-06 17:30 | Consultation ---
DATE OF CONSULTATION: 10/06/2018 CONSULTING PHYSICIAN: Dallin Maurice M.D. REFERRING PHYSICIAN: José Miguel Benson M.D. CHIEF COMPLAINT: Constipation and anemia. HISTORY OF PRESENT ILLNESS: This is a 77-year-old female, came to the hospital with high blood pressures, complained of dizziness. The patient was found to be profoundly anemic. GI consultation is requested for evaluation. The patient denies any nausea or vomiting. Denies any dysphagia or odynophagia. Denies any melena or hematochezia. The patient complained of some constipation. Denies any seen blood in her stool. Last colonoscopy according to her, three years ago. She does not remember the results, but she does not want to have another one at this time. PAST MEDICAL HISTORY: Hypertension. ALLERGIES: Penicillin. MEDICATIONS: Please see medication reconciliation list. SOCIAL HISTORY: The patient denies any tobacco usage. She used to drink alcohol, but quit. No IV drug abuse. FAMILY HISTORY: Positive for hypertension. REVIEW OF SYSTEMS: A 10-point review of systems was performed and pertinent positive in HPI. PHYSICAL EXAMINATION: VITAL SIGNS: Temperature 97.6, pulse 79, respirations 20, and blood pressure is 140/80. HEENT: Normocephalic and atraumatic. Sclerae anicteric. NECK: Supple. No evidence of lymphadenopathy. CARDIOVASCULAR: Regular rate and rhythm. Plus S1 and S2. No obvious murmur. LUNGS: Clear to auscultation bilaterally. ABDOMEN: Positive bowel sounds. Soft and nontender. No rebound. No guarding. No peritoneal sign. EXTREMITIES: No cyanosis, no clubbing, and no edema. NEUROLOGIC: Nonfocal. LABORATORY DATA: White count is 12.8, hemoglobin 9.8, hematocrit 30, platelet count is 216,000. Chem 7, BUN is 41, creatinine is 1.4. ASSESSMENT AND PLAN: This is a 77-year-old female with normocytic anemia, possibly secondary to renal insufficiency with creatinine of 1.4. There is no significant iron deficiency, iron saturation is 16%. Stool OB has been sent, which is pending. Our plan will be to start the patient on Colace and MiraLAX. We are also going to give her Dulcolax suppository one dose today. We will send the stool for OB. At this time, the patient does not want to have another colonoscopy. We will continue monitoring and make further recommendation as we go along. We also ordered tumor markers for this patient. I want to thank, Dr. José Miguel Benson, for this kind referral. Dallin Josh Maurice DR: WILLIAM JOB#: [id number] CC: José Miguel Benson MD
[2018-10-06] MEDS: Docusate 100mg cap ORAL SCH (17:35)
--- NOTE | 2018-10-06 19:15 | NUR ---
NURSE NOTES: Received pt. and report from POLLY Segal. Observe pt. resting in bed with both eyes open and watching television. Pt. is A/O x4. IV site intact, asymptomatic and patent. monitoring analyst in placed. Bed is in the lowest position and locked. Call light within reach. No signs/symptoms of acute distress noted at this time. Will continue plan of care. Addendum: 10/07/18 at 8283 by Mariam Huitron Mai, RN Pt. has med surg order; no available bed at this time.
--- NOTE | 2018-10-06 19:29 | NUR ---
HAND-OFF: Report given to Kanchan RN. Pt remains stable..
--- NOTE | 2018-10-06 19:59 | Internal Med Progress Note ---
Subjective Physician Name José Miguel Benson Attending Physician José Miguel Benson MD Current Medications Medications (Trade) Dose Ordered Sig/Amos Route PRN Reason Start Time Stop Time Status Last Admin Dose Admin Acetaminophen (Tylenol) 650 mg Q4H PRN ORAL Mild Pain (Pain Scale 1-3) 10/02/18 10:30 11/01/18 10:29 Aspirin (ASA) 81 mg DAILY ORAL 10/03/18 09:00 11/02/18 08:59 10/06/18 08:05 Carvedilol (Coreg) 3.125 mg EVERY 12 HOURS ORAL 10/04/18 21:00 11/03/18 20:59 10/06/18 08:20 Dextrose (Dextrose 50%) 25 ml Q30M PRN IV Hypoglycemia 10/02/18 10:30 11/01/18 10:29 Dextrose (Dextrose 50%) 50 ml Q30M PRN IV Hypoglycemia 10/02/18 10:30 11/01/18 10:29 Docusate Sodium (Colace) 100 mg TWICE A DAY ORAL 10/06/18 18:00 11/05/18 17:59 10/06/18 17:35 Enoxaparin Sodium (Lovenox) 40 mg DAILY SUBQ 10/03/18 09:00 11/02/18 08:59 10/06/18 08:08 Famotidine (Pepcid) 40 mg DAILY ORAL 10/03/18 09:00 11/02/18 08:59 10/06/18 08:05 Meclizine HCl (Antivert) 25 mg Q6H PRN ORAL for dizziness 10/06/18 12:15 11/05/18 12:14 Ondansetron HCl (Zofran) 4 mg Q4H PRN IVP Nausea & Vomiting 10/03/18 10:45 11/02/18 10:44 10/03/18 10:59 Polyethylene Glycol (Miralax) 17 gm BEDTIME ORAL 10/06/18 21:00 11/05/18 20:59 Sodium Chloride 1,000 ml @ 75 mls/hr [id number] IV 10/03/18 15:23 11/02/18 15:22 10/05/18 08:15 Allergies: Coded Allergies: PENICILLINS (Verified Allergy, Unknown, 09/10/18) All Systems: reviewed and negative except above - doesnt like coreg Objective Last Vital Signs Date Time Temp Pulse Resp B/P (MAP) Pulse Ox O2 Delivery O2 Flow Rate FiO2 10/06/18 16:00 97.8 84 18 157/70 (99) 96 10/06/18 09:00 Room Air General Appearance: WD/WN, alert EENT: PERRL/EOMI, normal ENT inspection Neck: normal alignment, supple Cardiovascular: normal rate, regular rhythm Respiratory/Chest: lungs clear, normal breath sounds Abdomen: non tender, soft Extremities: normal range of motion, non-tender Edema: trace edema, mild edema Neurologic: no motor/sensory deficits, alert Skin: normal pigmentation, warm/dry Laboratory Tests Test 10/06/18 06:33 Sodium Level 140 MMOL/L (136-145) Potassium Level 5.0 MMOL/L (3.5-5.1) Chloride Level 106 MMOL/L (98-107) Carbon Dioxide Level 26 MMOL/L (21-32) Anion Gap 8 mmol/L (5-15) Blood Urea Nitrogen 41 mg/dL (7-18) H Creatinine 1.4 MG/DL (0.55-1.30) H Estimat Glomerular Filtration Rate mL/min (>60) Glucose Level 96 MG/DL (74-106) Calcium Level 8.9 MG/DL (8.5-10.1) Intake and Output 10/05/18 10/06/18 19:00 07:00 Intake Total 2043 ml Balance 2043 ml Intake Oral 990 ml IV Total 1053 ml # Voids 2 4 # Bowel Movements 1 3 Assessment/Plan Assessment/Plan ASSESSMENT AND PLAN: 1.HTN 2. Acute kidney injury. 3.SIADH 4. recurrent dizziness - likely orthostatic hypotension 5. azotemia (BUN elevated at 40) - ddx: r/o GI bleed 6. anemia - fe deficiency Plan 1. Medsurg 2. Losartan 25mg PO BID 3. DC coreg 4. Neuro consult 5. renal Consult 6. compression stalkings 7. + orthostatics today; 8. Will discuss GI consult for elevated BUN and fe deficiency. BUN not decreasing with IVF. refusing colonoscopy DC HOME WITH TOMORROW DVT prophylaxis with Lovenox. Gastrointestinal prophylaxis with famotidine. José Miguel Benson MD October 06, 2018 19:59
[2018-10-06 20:00] VITALS: BP 159/80
--- NOTE | 2018-10-06 20:00 | Discharge Instructions ---
Discharge Instructions Discharge Instructions Follow up with: PCP in 1 wk Call MD/Return to Hospital if: worsening symptoms Diet: regular Resume Normal Activity?: Yes For Congestive Heart Failure Reminder Report to your physician any weight gain of 5 pounds or more in one week. José Miguel Benson MD October 06, 2018 20:00
[2018-10-06] MEDS ORDERED: Miralax 17gm pkt ORAL SCH (21:00)
[2018-10-06] MEDS: Losartan 25mg tab ORAL SCH (21:11)
[2018-10-07] VITALS: BP_SYST 139; BP_SYST 149; BP_SYST 150; BP_DIAS 71; BP_DIAS 79
--- NOTE | 2018-10-07 03:17 | Neurology Progress Note ---
Interim History Interim History ROS Limited/Unobtainable: No Complaints: Dizziness/ Weakness Events: None new Interim History This visit was conducted on October 06, 2018 with supervision of Eliana Joe MD Objective Physical Exam Last Vital Signs Date Time Temp Pulse Resp B/P (MAP) Pulse Ox O2 Delivery O2 Flow Rate FiO2 10/07/18 00:00 80 82 87 10/07/18 00:00 98.9 19 139/71 (93) 98 149/79 (102) 150/79 (102) 10/06/18 21:00 Room Air Laboratory Tests Test 10/06/18 06:33 Sodium Level 140 MMOL/L (136-145) Potassium Level 5.0 MMOL/L (3.5-5.1) Chloride Level 106 MMOL/L (98-107) Carbon Dioxide Level 26 MMOL/L (21-32) Anion Gap 8 mmol/L (5-15) Blood Urea Nitrogen 41 mg/dL (7-18) H Creatinine 1.4 MG/DL (0.55-1.30) H Estimat Glomerular Filtration Rate mL/min (>60) Glucose Level 96 MG/DL (74-106) Calcium Level 8.9 MG/DL (8.5-10.1) Neurologic Exam Mental Status: awake Speech: normal speech, no dysarthia Language: normal language, no aphasia Cranial Nerve II: fundus normal, visual gilbert, no papilledema Cranial Nerves III, IV, : PERRLA, EOMI, pupils Cranial Nerve V: normal facial sensations, temporales function normal, masseters function normal, pterygoids function normal Cranial Nerve VII: no facial asymmetry, normal facial expressions Cranial Nerve VIII: normal hearing, no nystagmus Cranial Nerve IX: normal palate elevation, gag response Cranial Nerve X: no voice hoarseness Cranial Nerve XI: SCM symmetric, trapezii function normal Cranial Nerve XII: tongue midline, no tongue atrophy/fasciculations Motor System: normal muscle tone, strength 5/5, no involuntary movement, no muscle wasting Sensory: normal pinprick, normal light touch, normal position sense, normal graphesthesia Coordination: normal finger to nose bilaterally, normal heel to webber bilaterally, negative Romberg test Deep Tendon Reflexes: 2+ bicep (L), 2+ bicep (R), 2+ tricep (L), 2+ tricep (R) , 2+ brachioradialis (L), 2+ brachioradialis (R), 2+ knee (L), 2+ knee (R), 2+ ankle (L), 2+ ankle (R) Stance: normal Gait: stable, normal regular, heel + toe gait Impression/Recommendations Problems: (1) Dizziness Assessment & Plan: Resolved (2) UTI (urinary tract infection) (3) HTN (hypertension) (4) Episode of generalized weakness (5) Dehydration (6) Anemia (7) Encephalopathy acute Assessment & Plan: Improved Continue Q4 Hour Neuro Obs Na 135-145 SBP< 140 Asa 81mg Status: doing well, stable, tolerating diet, ambulating well Recommendations Stable for discharge from a neurological perspective . Contintue neuro obs Complete abx for UTI D/C Planning Kiesha Harper N.P. October 07, 2018 03:17
--- NOTE | 2018-10-07 03:20 | Neurology Progress Note ---
Interim History Interim History ROS Limited/Unobtainable: No Complaints: Dizziness/ Weakness Events: None new Interim History This visit was performed on October 07, [address] Eliana Joe. Review of Systems All Systems: reviewed and negative except above Objective Physical Exam Last Vital Signs Date Time Temp Pulse Resp B/P (MAP) Pulse Ox O2 Delivery O2 Flow Rate FiO2 10/07/18 00:00 80 82 87 10/07/18 00:00 98.9 19 139/71 (93) 98 149/79 (102) 150/79 (102) 10/06/18 21:00 Room Air Laboratory Tests Test 10/06/18 06:33 Sodium Level 140 MMOL/L (136-145) Potassium Level 5.0 MMOL/L (3.5-5.1) Chloride Level 106 MMOL/L (98-107) Carbon Dioxide Level 26 MMOL/L (21-32) Anion Gap 8 mmol/L (5-15) Blood Urea Nitrogen 41 mg/dL (7-18) H Creatinine 1.4 MG/DL (0.55-1.30) H Estimat Glomerular Filtration Rate mL/min (>60) Glucose Level 96 MG/DL (74-106) Calcium Level 8.9 MG/DL (8.5-10.1) Neurologic Exam Mental Status: awake Speech: normal speech, no dysarthia Language: normal language, no aphasia Cranial Nerve II: fundus normal, visual gilbert, no papilledema Cranial Nerves III, IV, : PERRLA, EOMI, pupils Cranial Nerve V: normal facial sensations, temporales function normal, masseters function normal, pterygoids function normal Cranial Nerve VII: no facial asymmetry, normal facial expressions Cranial Nerve VIII: normal hearing, no nystagmus Cranial Nerve IX: normal palate elevation, gag response Cranial Nerve X: no voice hoarseness Cranial Nerve XI: SCM symmetric, trapezii function normal Cranial Nerve XII: tongue midline, no tongue atrophy/fasciculations Motor System: normal muscle tone, strength 5/5, no involuntary movement, no muscle wasting Sensory: normal pinprick, normal light touch, normal position sense, normal graphesthesia Coordination: normal finger to nose bilaterally, normal heel to webber bilaterally, negative Romberg test Deep Tendon Reflexes: 2+ bicep (L), 2+ bicep (R), 2+ tricep (L), 2+ tricep (R) , 2+ brachioradialis (L), 2+ brachioradialis (R), 2+ knee (L), 2+ knee (R), 2+ ankle (L), 2+ ankle (R) Stance: normal Gait: stable, normal regular, heel + toe gait Impression/Recommendations Problems: (1) Dizziness Assessment & Plan: Resolved (2) UTI (urinary tract infection) (3) HTN (hypertension) (4) Episode of generalized weakness (5) Dehydration (6) Anemia (7) Encephalopathy acute Assessment & Plan: Improved Continue Q4 Hour Neuro Obs Na 135-145 SBP< 140 Asa 81mg Status: doing well, stable, tolerating diet, ambulating well Recommendations Stable for discharge from a neurological perspective . Contintue neuro obs Complete abx for UTI D/C Planning Kiesha Harper N.P. October 07, 2018 03:20
[2018-10-07 04:00] VITALS: BP 132/81
[2018-10-07 07:08] LABS: BASOPHILS % (AUTO) 1.2 % (0.0-2.0); EOSINOPHILS % (AUTO) 3.5 % (0.0-3.0); HEMATOCRIT 29.9 % (37.0-47.0); HEMOGLOBIN 9.8 G/DL (12.0-16.0); LYMPHOCYTES % (AUTO) 32.7 % (20.0-45.0); MEAN CORPUSCULAR VOLUME 86 FL (80-99); NEUTROPHILS % (AUTO) 48.6 % (45.0-75.0); PLATELET COUNT 210 K/UL (150-450); RED BLOOD COUNT 3.49 M/UL (4.20-5.40); WHITE BLOOD COUNT 4.9 K/UL (4.8-10.8)
[2018-10-07 07:11] LABS: ANION GAP 6 mmol/L (5-15); BLOOD UREA NITROGEN 34 mg/dL (7-18); CALCIUM 8.9 MG/DL (8.5-10.1); CARBON DIOXIDE 27 MMOL/L (21-32); CHLORIDE 103 MMOL/L (98-107); CREATININE 1.2 MG/DL (0.55-1.30); POTASSIUM 4.6 MMOL/L (3.5-5.1); SODIUM 136 MMOL/L (136-145)
--- NOTE | 2018-10-07 07:33 | NUR ---
HAND-OFF: Report given to POLLY Robison.
--- NOTE | 2018-10-07 07:36 | NUR ---
NURSE NOTES: received patient report from solange rn. patient is on bed awake, comfortably eating breakfast. not in acute distress. will follow plan of care.
[2018-10-07 08:00] VITALS: BP 137/75
[2018-10-07] MEDS: Losartan 25mg tab ORAL SCH (08:52)
[2018-10-07] MEDS: Aspirin Baby 81mg ORAL SCH (08:52)
[2018-10-07] MEDS: Docusate 100mg cap ORAL SCH ×2 (08:52→08:58)
[2018-10-07] MEDS: Enoxaparin 40mg Inj SUBQ SCH (08:53)
--- NOTE | 2018-10-07 10:08 | NUR ---
NURSE NOTES: left a message to dr gregorio if he wants to dc patient today or transfer to [facility]. awaits callback and new order.
[2018-10-07 12:00] VITALS: BP 122/73
--- NOTE | 2018-10-07 12:38 | Discharge Summary ---
Discharge Summary Hospital Course Date of Admission October 02, 2018 at 09:16 Date of Discharge Admitting Diagnosis hypertension, dizziness, renal insufficiency RICHARD Sanchez is a 77 year old female who was admitted on October 02, 2018 at 09:16 for Hypertension,Dizziness. Patient was orthostatic. She had IVF and was was started on losartan 25mg PO BID. Her dizziness resolved Discharge Medications Continued Medications: Aspirin* (Aspir 81*) 81 Mg Tablet.dr 81 MG ORAL DAILY (This prescription has been renewed) Cholecalciferol (Vitamin D3)* (Vitamin D*) 1,000 Unit Tablet 1000 UNITS ORAL DAILY (This prescription has been renewed) Omeprazole (Omeprazole) 20 Mg Capsule.dr 20 MG ORAL DAILY (This prescription has been renewed) Rosuvastatin Calcium* (Crestor*) 20 Mg Tablet 20 MG ORAL DAILY (This prescription has been renewed) Discontinued Medications: Amlodipine Besylate (Norvasc) 10 Mg Tablet 10 MG ORAL DAILY, #30 TAB Hydralazine HCl (Hydralazine HCl) 10 Mg Tablet 10 MG ORAL EVERY 8 HOURS, TAB Discharge Condition Upon Discharge: stable Discharge Disposition Patient was discharged to HOME Discharge Instructions Discharge Instructions Follow up with: PCP in 1 wk Call MD/Return to Hospital if: worsening symptoms José Miguel Benson MD October 07, 2018 12:38
--- NOTE | 2018-10-07 12:53 | General Progress Note ---
Assessment/Plan Problem List: (1) GERD (gastroesophageal reflux disease) ICD Codes: K21.9 - Gastro-esophageal reflux disease without esophagitis SNOMED: 960909188 (2) Anemia ICD Codes: D64.9 - Anemia, unspecified SNOMED: 774150984 Qualifiers: (3) Constipation ICD Codes: K59.00 - Constipation, unspecified SNOMED: 85119361 (4) HTN (hypertension) ICD Codes: I10 - Essential (primary) hypertension SNOMED: 62601980 Qualifiers: Qualified Codes: I10 - Essential (primary) hypertension Status: doing well, stable, tolerating diet, ambulating well Assessment/Plan: refused in patient GI procedures plan for out patient bowel regimen fu labs fu tumor markers Subjective ROS Limited/Unobtainable: Yes Allergies: Coded Allergies: PENICILLINS (Verified Allergy, Unknown, 09/10/18) Objective Last 24 Hour Vital Signs Date Time Temp Pulse Resp B/P (MAP) Pulse Ox O2 Delivery O2 Flow Rate FiO2 10/07/18 12:00 98.1 73 18 122/73 (89) 98 10/07/18 09:00 78 81 95 10/07/18 09:00 Room Air 10/07/18 08:52 137/75 10/07/18 08:00 75 10/07/18 08:00 97.9 74 20 137/75 (95) 99 10/07/18 04:00 97.0 88 18 132/81 (98) 97 10/07/18 04:00 75 10/07/18 00:00 80 82 87 10/07/18 00:00 93 10/07/18 00:00 98.9 80 19 139/71 (93) 98 149/79 (102) 150/79 (102) 10/06/18 21:11 159/80 10/06/18 21:00 Room Air 10/06/18 20:00 97.7 93 18 159/80 (106) 98 10/06/18 20:00 83 10/06/18 16:00 97.8 84 18 157/70 (99) 96 10/06/18 16:00 78 Intake and Output 10/06/18 10/07/18 18:59 06:59 Intake Total 360 ml 460 ml Balance 360 ml 460 ml Intake Oral 360 ml 460 ml # Voids 3 4 # Bowel Movements 1 1 Laboratory Tests 10/07/18 06:05: White Blood Count 4.9, Red Blood Count 3.49L, Hemoglobin 9.8L, Hematocrit 29.9L , Mean Corpuscular Volume 86, Mean Corpuscular Hemoglobin 28.0, Mean Corpuscular Hemoglobin Concent 32.6, Red Cell Distribution Width 12.0, Platelet Count 210, Mean Platelet Volume 6.4L, Neutrophils (%) (Auto) 48.6, Lymphocytes ( %) (Auto) 32.7, Monocytes (%) (Auto) 14.0H, Eosinophils (%) (Auto) 3.5H, Basophils (%) (Auto) 1.2, Sodium Level 136, Potassium Level 4.6, Chloride Level 103, Carbon Dioxide Level 27, Anion Gap 6, Blood Urea Nitrogen 34H, Creatinine 1.2, Estimat Glomerular Filtration Rate , Glucose Level 106, Calcium Level 8.9, Carcinoembryonic Antigen [Pending], CA 19-9 Antigen [Pending], Vitamin B12 Level 613, Folate 13.9 Height (Feet): 5 Height (Inches): 4.00 Weight (Pounds): 206 General Appearance: alert EENT: normal ENT inspection Neck: supple Cardiovascular: normal rate Respiratory/Chest: lungs clear Abdomen: normal bowel sounds, non tender, soft Extremities: non-tender Dallin Maurice MD October 07, 2018 12:53
--- NOTE | 2018-10-07 14:00 | Nephrology Progress Note ---
Assessment/Plan Problem List: (1) ARF (acute renal failure) Assessment: better (2) SIADH (syndrome of inappropriate ADH production) Assessment: Serum sodium normal now (3) HTN (hypertension) Assessment: Adequately controlled for now (4) Dizziness Assessment: Better Assessment No orthostatic blood pressure drop from supine to standing position, however patient's heart rate goes up slightly. Plan Discussed with Dr Benson and RN D today Subjective Subjective feels ok Objective Objective Last 24 Hour Vital Signs Date Time Temp Pulse Resp B/P (MAP) Pulse Ox O2 Delivery O2 Flow Rate FiO2 10/07/18 12:00 98.1 73 18 122/73 (89) 98 10/07/18 12:00 84 10/07/18 09:00 78 81 95 10/07/18 09:00 Room Air 10/07/18 08:52 137/75 10/07/18 08:00 75 10/07/18 08:00 97.9 74 20 137/75 (95) 99 10/07/18 04:00 97.0 88 18 132/81 (98) 97 10/07/18 04:00 75 10/07/18 00:00 80 82 87 10/07/18 00:00 93 10/07/18 00:00 98.9 80 19 139/71 (93) 98 149/79 (102) 150/79 (102) 10/06/18 21:11 159/80 10/06/18 21:00 Room Air 10/06/18 20:00 97.7 93 18 159/80 (106) 98 10/06/18 20:00 83 10/06/18 16:00 97.8 84 18 157/70 (99) 96 10/06/18 16:00 78 Intake and Output 10/06/18 10/07/18 18:59 06:59 Intake Total 360 ml 460 ml Balance 360 ml 460 ml Intake Oral 360 ml 460 ml # Voids 3 4 # Bowel Movements 1 1 Laboratory Tests 10/07/18 06:05: White Blood Count 4.9, Red Blood Count 3.49L, Hemoglobin 9.8L, Hematocrit 29.9L , Mean Corpuscular Volume 86, Mean Corpuscular Hemoglobin 28.0, Mean Corpuscular Hemoglobin Concent 32.6, Red Cell Distribution Width 12.0, Platelet Count 210, Mean Platelet Volume 6.4L, Neutrophils (%) (Auto) 48.6, Lymphocytes ( %) (Auto) 32.7, Monocytes (%) (Auto) 14.0H, Eosinophils (%) (Auto) 3.5H, Basophils (%) (Auto) 1.2, Sodium Level 136, Potassium Level 4.6, Chloride Level 103, Carbon Dioxide Level 27, Anion Gap 6, Blood Urea Nitrogen 34H, Creatinine 1.2, Estimat Glomerular Filtration Rate , Glucose Level 106, Calcium Level 8.9, Carcinoembryonic Antigen [Pending], CA 19-9 Antigen [Pending], Vitamin B12 Level 613, Folate 13.9 Height (Feet): 5 Height (Inches): 4.00 Weight (Pounds): 206 Cardiovascular: normal rate Respiratory/Chest: lungs clear Reynaldo Wang MD October 07, 2018 14:00
--- NOTE | 2018-10-07 15:22 | NUR ---
DISCHARGE PLANNING Discharge order noted Patient has been referred to [facility] [phone] Await Acceptance and Room Number
--- NOTE | 2018-10-07 15:34 | NUR ---
NURSE NOTES: patient will be discharge to home with homehealth under [facility]. discharge medications and instructions were given. patient verbalizes understanding. senior qa analyst removed, iv line removed. patient refused to go over her belongings. patient stated that, she has everything in her bag.no need to check it. patient signed the belongings list. packet given. awaits mixing picker tender by family member, mariia (son)
[2018-10-07 16:00] VITALS: BP 142/71
--- NOTE | 2018-10-07 16:08 | NUR ---
NURSE NOTES: Sam Marlon stocking and instructions were given to the patient. Homehealth contact number was given as well.
--- NOTE | 2018-10-07 16:47 | NUR ---
NURSE NOTES: patient was picked up by son mariia. went home via private vehicle.patient is not on distress.
== END 2018-10-07 16:50 | disposition home health service (06) | DRG 305 ==
LOC: EMR 05:14 → EDBEDREQ 09:00 → 2E 09:16
DX: I16.0 Hypertensive urgency (principal); N17.9 Acute kidney failure, unspecified; E22.2 Syndrome of inappropriate secretion of antidiuretic hormone; N39.0 Urinary tract infection, site not specified; I95.1 Orthostatic hypotension; Z88.0 Allergy status to penicillin; I10 Essential (primary) hypertension; D50.9 Iron deficiency anemia, unspecified; E86.0 Dehydration
CPT/HCPCS: 36415; 71045; 76770; 80048; 80053; 81003; 82378; 82550; 82553; 82607; 82728; 82746; 83540; 83550; 83880; 84484; 85025; 93005; 96361; 99285; J2405

== ENCOUNTER 2018-10-18 12:32 | Emergency (ER) | payer MEDICARE ==
[~2018-10-18] VITALS: Ht 165.1 cm; Wt 54.4 kg
[~2018-10-18 12:32] MED LIST changes: +APRESOLINE10 MG ORAL; +ASPIR 8181 MG ORAL; +CRESTOR20 MG ORAL; +VITAMIN D1000 UNI1 ORAL
[2018-10-18] MEDS ORDERED: LOSARTAN POTASS25 MG ORAL (12:39)
[2018-10-18 12:40] VITALS: BP 158/71
--- NOTE | 2018-10-18 12:58 | NUR ---
ED Nurse Note: pt arrives via [facility] for c/o feeling a heavy head this am. denies n/v/dizziness or cp. denies dyspnea today. states she hasnt eaten today. states she wanted to check and see how her blood levels are. a/ox4 tolerates iv start and lab draw well.
[2018-10-18 13:12] LABS: BASOPHILS % (AUTO) 1.7 % (0.0-2.0); HEMATOCRIT 34.3 % (37.0-47.0); HEMOGLOBIN 11.2 G/DL (12.0-16.0); LYMPHOCYTES % (AUTO) 31.3 % (20.0-45.0); MEAN CORPUSCULAR VOLUME 86 FL (80-99); NEUTROPHILS % (AUTO) 56.1 % (45.0-75.0); PLATELET COUNT 252 K/UL (150-450); RED CELL DISTRIBUTION WIDTH 11.5 % (11.6-14.8); WHITE BLOOD COUNT 4.2 K/UL (4.8-10.8)
[2018-10-18 13:20] LABS: ANION GAP 7 mmol/L (5-15); BLOOD UREA NITROGEN 29 mg/dL (7-18); CALCIUM 9.2 MG/DL (8.5-10.1); CARBON DIOXIDE 27 MMOL/L (21-32); CHLORIDE 100 MMOL/L (98-107); CREATININE 1.2 MG/DL (0.55-1.30); POTASSIUM 4.9 MMOL/L (3.5-5.1); SODIUM 134 MMOL/L (136-145)
[2018-10-18 13:50] VITALS: BP 162/72
--- NOTE | 2018-10-18 13:50 | Emergency Room Report ---
History of Present Illness General Chief Complaint: Dizziness Source: Patient Present Illness HPI Patient presented initially with complaint of dizziness off-and-on for the past 2 days She also reports a heaviness She reports similar to when she had low sodium levels Denies any chest pain or shortness of breath denies any vomiting or diarrhea Patient had recent hospital stay for blood pressure control Denies any focal weakness denies any visual changes Denies any change with position or exertion Allergies: Coded Allergies: PENICILLINS (Verified Allergy, Unknown, 09/10/18) Patient History Past Medical History: see triage record Pertinent Family History: none Reviewed Nursing Documentation: PMH: Agreed; PSxH: Agreed Nursing Documentation-PMH Hx Cardiac Problems: Yes - high cholesterol,arthritis Hx Hypertension: Yes - high cholesterol Hx Cancer: No Hx Gastrointestinal Problems: No Hx Neurological Problems: No Review of Systems All Other Systems: negative except mentioned in HPI Physical Exam Vital Signs Date Time Temp Pulse Resp B/P (MAP) Pulse Ox O2 Delivery O2 Flow Rate FiO2 10/18/18 12:23 98.1 88 16 98 Room Air 10/18/18 12:40 158/71 Sp02 EP Interpretation: reviewed, normal General Appearance: well appearing, no apparent distress Head: normocephalic, atraumatic Eyes: bilateral eye PERRL, bilateral eye EOMI ENT: hearing grossly normal, normal pharynx, TMs + canals normal, uvula midline Neck: full range of motion, supple, no meningismus, no bony tend Respiratory: lungs clear, normal breath sounds, no rhonchi, no respiratory distress, no retraction, no accessory muscle use Cardiovascular #1: normal peripheral pulses, regular rate, rhythm, no edema, no gallop, no JVD, no murmur Gastrointestinal: normal bowel sounds, non tender, soft, no mass, no organomegaly, non-distended, no guarding, no hernia, no pulsatile mass, no rebound Genitourinary: no CVA tenderness Musculoskeletal: normal inspection Neurologic: oriented x3, responsive, 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 III-XII nml as tested, motor strength/ tone normal, sensory intact Psychiatric: mood/affect normal Skin: normal color, no rash, warm/dry, palpation normal Lymphatic: normal inspection, no adenopathy Medical Decision Making Diagnostic Impression: Primary Impression: Dizziness ER Course Multiple differentials including but not limited to neurological, neurosurgical , infectious, metabolic pathology entertained Patient's blood work is at baseline levels Patient remains hemodynamically stable I spoke to the patient's primary physician he is comfortable with the patient also going home with close outpatient follow-up and will return with any changes Labs Test 10/18/18 12:55 White Blood Count 4.2 K/UL (4.8-10.8) Red Blood Count 4.00 M/UL (4.20-5.40) Hemoglobin 11.2 G/DL (12.0-16.0) Hematocrit 34.3 % (37.0-47.0) Mean Corpuscular Volume 86 FL (80-99) Mean Corpuscular Hemoglobin 28.0 PG (27.0-31.0) Mean Corpuscular Hemoglobin Concent 32.6 G/DL (32.0-36.0) Red Cell Distribution Width 11.5 % (11.6-14.8) Platelet Count 252 K/UL (150-450) Mean Platelet Volume 5.7 FL (6.5-10.1) Neutrophils (%) (Auto) 56.1 % (45.0-75.0) Lymphocytes (%) (Auto) 31.3 % (20.0-45.0) Monocytes (%) (Auto) 9.0 % (1.0-10.0) Eosinophils (%) (Auto) 2.0 % (0.0-3.0) Basophils (%) (Auto) 1.7 % (0.0-2.0) Sodium Level 134 MMOL/L (136-145) Potassium Level 4.9 MMOL/L (3.5-5.1) Chloride Level 100 MMOL/L (98-107) Carbon Dioxide Level 27 MMOL/L (21-32) Anion Gap 7 mmol/L (5-15) Blood Urea Nitrogen 29 mg/dL (7-18) Creatinine 1.2 MG/DL (0.55-1.30) Estimat Glomerular Filtration Rate mL/min (>60) Glucose Level 107 MG/DL (74-106) Calcium Level 9.2 MG/DL (8.5-10.1) Rhythm Strip Diag. Results EP Interpretation: yes Rate: 78 Rhythm: NSR, no PVC's, no ectopy Last Vital Signs Date Time Temp Pulse Resp B/P (MAP) Pulse Ox O2 Delivery O2 Flow Rate FiO2 10/18/18 12:40 98.2 79 20 158/71 100 Room Air Status: improved Disposition: HOME, SELF-CARE Condition: Improved Referrals: NON PHYSICIAN (PCP) Patient Instructions: Dizziness Additional Instructions: Patient is provided with the discharge instructions notified to follow up with primary doctor in the next 2-3 days otherwise return to the er with any worsening symptoms. Please note that this report is being documented using DRAGON technology. This can lead to erroneous entry secondary to incorrect interpretation by the dictating instrument. Fallon Barcenas DO October 18, 2018 13:50
--- NOTE | 2018-10-18 13:50 | NUR ---
ER DISCHARGE NOTE: Patient is cleared to be discharged per ERMD, pt is aox4, on room air, with stable vital signs. pt was given dc and prescription instructions, pt was able to verbalize understanding, pt id band and iv site removed without complications. pt is able to ambulate with steady gait. pt took all belongings.
--- NOTE | 2018-10-20 20:27 | Cardiology Report ---
APPROVED REPORT EKG Measurement Heart [id number] Normal sinus rhythm Cannot rule out Anteroseptal infarct, age undetermined Abnormal ECG
== END 2018-10-18 13:45 | disposition home or self-care (01) ==
LOC: EDBD 12:32 → EMR 13:19
DX: R42 Dizziness and giddiness (principal); Z88.0 Allergy status to penicillin; E78.00 Pure hypercholesterolemia, unspecified; M19.90 Unspecified osteoarthritis, unspecified site
CPT/HCPCS: 36415; 80048; 85025; 93005; 99283

== ENCOUNTER 2019-04-14 11:33 | Emergency (ER) | payer MEDICARE ==
[~2019-04-14] VITALS: Ht 162.6 cm; Wt 90.7 kg
[~2019-04-14 11:33] MED LIST changes: +LOSARTAN POTASS25 MG ORAL; +MACROBID100 MG ORAL
[2019-04-14] MEDS ORDERED: LOSARTAN POTAS100 MG ORAL (11:42)
[2019-04-14 11:45] VITALS: BP 184/79
--- NOTE | 2019-04-14 12:58 | Diagnostic Imaging Report ---
Indication: Dyspnea Comparison: 5.19 A single view chest radiograph was obtained. Findings: Cardiomediastinal appearance is within normal limits for age. The lungs are clear. Pulmonary vascularity is appropriate. The diaphragmatic contour is smooth and costophrenic angles are sharp. Aorta is mildly calcified. No pleural effusions are identified. The bones are osteopenic. Impression: No acute findings
[2019-04-14 13:00] LABS: APPEARANCE,URINE CLEAR; BILIRUBIN, URINE NEGATIVE (NEGATIVE); COLOR,URINE PALE YELLOW; GLUCOSE, URINE (UA) NEGATIVE (NEGATIVE); KETONES,URINE NEGATIVE (NEGATIVE); LEUKOCYTE ESTERASE ,URINE NEGATIVE (NEGATIVE); NITRITE,URINE NEGATIVE (NEGATIVE); PH,URINE 6 (4.5-8.0); PROTEIN,URINE 2+ (NEGATIVE); UROBILINOGEN,URINE NORMAL MG/DL (0.0-1.0)
[2019-04-14 13:03] LABS: BASOPHILS % (AUTO) 0.9 % (0.0-2.0); EOSINOPHILS % (AUTO) 4.1 % (0.0-3.0); HEMATOCRIT 37.2 % (37.0-47.0); HEMOGLOBIN 11.9 G/DL (12.0-16.0); LYMPHOCYTES % (AUTO) 24.9 % (20.0-45.0); MEAN CORPUSCULAR VOLUME 85 FL (80-99); MONOCYTES % (AUTO) 7.7 % (1.0-10.0); NEUTROPHILS % (AUTO) 62.4 % (45.0-75.0); PLATELET COUNT 228 K/UL (150-450); RED BLOOD COUNT 4.38 M/UL (4.20-5.40); RED CELL DISTRIBUTION WIDTH 12.5 % (11.6-14.8); WHITE BLOOD COUNT 6.7 K/UL (4.8-10.8)
[2019-04-14 13:13] LABS: ANION GAP 5 mmol/L (5-15); BLOOD UREA NITROGEN 20 mg/dL (7-18); CALCIUM 8.6 MG/DL (8.5-10.1); CARBON DIOXIDE 31 MMOL/L (21-32); CHLORIDE 99 MMOL/L (98-107); CREATININE 1.3 MG/DL (0.55-1.30); POTASSIUM 4.5 MMOL/L (3.5-5.1); SODIUM 135 MMOL/L (136-145)
[2019-04-14 13:16] LABS: INR 0.9 (0.9-1.1)
[2019-04-14 13:24] LABS: ALANINE AMINOTRANSFERASE 26 U/L (12-78); ALBUMIN 3.6 G/DL (3.4-5.0); ALBUMIN/GLOBULIN RATIO 0.9 (1.0-2.7); ALKALINE PHOSPHATASE 118 U/L (46-116); ASPARTATE AMINO TRANSFERASE 24 U/L (15-37); BILIRUBIN,TOTAL 0.4 MG/DL (0.2-1.0); CREATINE KINASE 307 U/L (26-308)
[2019-04-14 13:36] VITALS: BP 161/72
[2019-04-14] MEDS ORDERED: Losartan 25mg tab ORAL ONE (14:45)
--- NOTE | 2019-04-14 14:53 | Emergency Room Report ---
History of Present Illness General Chief Complaint: Hypertension Source: Patient Present Illness HPI Patient was sent by her doctor. She was told her blood pressures out of control. She feels a little unsteady but denies any pain in her body. She claims she is been taking her blood pressure medication. [facility] MD just added a second med. She lives by herself. No fevers, chills, sore throat, chest pain, palpitations, nausea, vomiting, diarrhea, dysuria, abdominal pain, shortness of breath, rashes, depression, anxiety, visual changes, dizziness, headache. Allergies: Coded Allergies: PENICILLINS (Verified Allergy, Unknown, 10/22/18) Patient History Past Medical History: see triage record Social History: Denies: smoking Social History Narrative at home Reviewed Nursing Documentation: PMH: Agreed; PSxH: Agreed Nursing Documentation-PMH Hx Cardiac Problems: Yes - high cholesterol,arthritis Hx Hypertension: Yes Hx Cancer: No Hx Gastrointestinal Problems: No Hx Neurological Problems: No Review of Systems All Other Systems: negative except mentioned in HPI Physical Exam Vital Signs Date Time Temp Pulse Resp B/P (MAP) Pulse Ox O2 Delivery O2 Flow Rate FiO2 04/14/19 11:37 98.2 83 19 217/93 (134) 96 Room Air Sp02 EP Interpretation: reviewed, normal General Appearance: well appearing, no apparent distress, GCS 15 Head: normocephalic, atraumatic Eyes: bilateral eye normal inspection, bilateral eye PERRL, bilateral eye EOMI ENT: moist mucus membranes Neck: supple Respiratory: lungs clear, normal breath sounds Cardiovascular #1: regular rate, rhythm Cardiovascular #2: 2+ radial (R) Gastrointestinal: normal inspection, normal bowel sounds, non tender, no mass, non-distended Musculoskeletal: back normal, gait/station normal, normal range of motion Neurologic: alert, oriented x3, grossly normal Psychiatric: mood/affect normal Skin: no rash, warm/dry Medical Decision Making Diagnostic Impression: Primary Impression: HTN (hypertension) Qualified Codes: I10 - Essential (primary) hypertension ER Course Patient presents for blood pressure above goal. Differential includes acute renal failure, hypertensive urgency, malignant hypertension amongst others. The patient is asymptomatic at this time. Evaluation with EKG, chest x-ray and labs. Repeat blood pressure determinations will be performed. In addition the patient is placed on a microsoft dynamics ax developer. EKG without injury. Chest x-ray slight enlargement of heart. Labs remarkable for slightly elevated BUN and creatinine. Troponin negative. Patient given a second dose of her blood pressure medication. She is improved with observation and her blood pressures improved. Discussed test that she needed to follow-up with her own doctor. Medical emergency and patient is stable for outpatient observation and treatment. Laboratory Tests Test 04/14/19 12:30 White Blood Count 6.7 K/UL (4.8-10.8) Red Blood Count 4.38 M/UL (4.20-5.40) Hemoglobin 11.9 G/DL (12.0-16.0) L Hematocrit 37.2 % (37.0-47.0) Mean Corpuscular Volume 85 FL (80-99) Mean Corpuscular Hemoglobin 27.2 PG (27.0-31.0) Mean Corpuscular Hemoglobin Concent 32.1 G/DL (32.0-36.0) Red Cell Distribution Width 12.5 % (11.6-14.8) Platelet Count 228 K/UL (150-450) Mean Platelet Volume 6.6 FL (6.5-10.1) Neutrophils (%) (Auto) 62.4 % (45.0-75.0) Lymphocytes (%) (Auto) 24.9 % (20.0-45.0) Monocytes (%) (Auto) 7.7 % (1.0-10.0) Eosinophils (%) (Auto) 4.1 % (0.0-3.0) H Basophils (%) (Auto) 0.9 % (0.0-2.0) Prothrombin Time 10.0 SEC (9.30-11.50) Prothrombin Time INR 0.9 (0.9-1.1) PTT 26 SEC (23-33) Urine Color Pale yellow Urine Appearance Clear Urine pH 6 (4.5-8.0) Urine Specific [place] 1.010 (1.005-1.035) Urine Protein 2+ (NEGATIVE) H Urine Glucose (UA) Negative (NEGATIVE) Urine Ketones Negative (NEGATIVE) Urine Blood 1+ (NEGATIVE) H Urine Nitrite Negative (NEGATIVE) Urine Bilirubin Negative (NEGATIVE) Urine Urobilinogen Normal MG/DL (0.0-1.0) Urine Leukocyte Esterase Negative (NEGATIVE) Urine RBC 0-2 /HPF (0 - 2) Urine WBC 0-2 /HPF (0 - 2) Urine Squamous Epithelial Cells Occasional /LPF Urine Bacteria Few /HPF (NONE) Sodium Level 135 MMOL/L (136-145) L Potassium Level 4.5 MMOL/L (3.5-5.1) Chloride Level 99 MMOL/L (98-107) Carbon Dioxide Level 31 MMOL/L (21-32) Anion Gap 5 mmol/L (5-15) Blood Urea Nitrogen 20 mg/dL (7-18) H Creatinine 1.3 MG/DL (0.55-1.30) Estimate Glomerular Filtration Rate mL/min (>60) Glucose Level 105 MG/DL (74-106) Calcium Level 8.6 MG/DL (8.5-10.1) Total Bilirubin 0.4 MG/DL (0.2-1.0) Aspartate Amino Transferase (AST) 24 U/L (15-37) Alanine Aminotransferase (ALT) 26 U/L (12-78) Alkaline Phosphatase 118 U/L (46-116) H Total Creatine Kinase 307 U/L (26-308) Troponin I 0.003 ng/mL (0.000-0.056) Pro-B-Type Natriuretic Peptide 156 pg/mL (0-125) H Total Protein 7.8 G/DL (6.4-8.2) Albumin 3.6 G/DL (3.4-5.0) Globulin 4.2 g/dL Albumin/Globulin Ratio 0.9 (1.0-2.7) L Urine Opiates Screen Negative (NEGATIVE) Urine Barbiturates Screen Negative (NEGATIVE) Phencyclidine (PCP) Screen Negative (NEGATIVE) Urine Amphetamines Screen Negative (NEGATIVE) Urine Benzodiazepines Screen Negative (NEGATIVE) Urine Cocaine Screen Negative (NEGATIVE) Urine Marijuana (THC) Screen Negative (NEGATIVE) EKG Diagnostic Results Rate: normal Rhythm: NSR ST Segments: no acute changes Rhythm Strip Diag. Results EP Interpretation: yes Rhythm: NSR, no PVC's, no ectopy Chest X-Ray Diagnostic Results Chest X-Ray Diagnostic Results : Chest X-Ray Ordered: Yes # of Views/Limited/Complete: 1 View Indication: Other Interpretation: no consolidation, no effusion, no pneumothorax, other - inc cor Impression: Other Electronically Signed by: Electronically signed by José Miguel Alexander MD Last Vital Signs Date Time Temp Pulse Resp B/P (MAP) Pulse Ox O2 Delivery O2 Flow Rate FiO2 11/14/19 15:39 98.6 87 20 173/77 98 Room Air Status: improved Disposition: HOME, SELF-CARE Condition: Improved Referrals: NOT CHOSEN IPA/,REFERRING (PCP) José Miguel Alexander MD Apr 14, 2019 14:53
[2019-04-14 15:39] VITALS: BP 173/77
--- NOTE | 2019-04-16 15:03 | Cardiology Report ---
APPROVED REPORT EKG Measurement Heart [id number] ID [id number] Normal sinus rhythm Septal infarct, age undetermined Abnormal ECG
== END 2019-04-14 15:45 | disposition home or self-care (01) ==
LOC: EMR 12:10
DX: I10 Essential (primary) hypertension (principal); E78.00 Pure hypercholesterolemia, unspecified; Z88.0 Allergy status to penicillin
CPT/HCPCS: 36415; 71045; 80053; 80307; 81003; 82550; 83880; 84484; 85025; 85610; 85730; 93005; 99284